=== PATIENT | female | born 1955 | race Caucasian/White ===

== ENCOUNTER 2016-04-06 01:38 | Emergency (ER) | payer MEDICARE, OTHER ==
[~2016-04-06] VITALS: Ht 175.3 cm; Wt 98.2 kg
[2016-04-06 01:38] VITALS: BP 131/71; PULSE 73; RESP 20; TEMP 97.4; O2SAT 95
[2016-04-06] MEDS ORDERED: VENTAER INH (01:50)
[2016-04-06 02:15] LABS: BLOOD, URINE NEG (NEG); GLUCOSE,URINE NEG (NEG); KETONE, URINE NEG (NEG); NITRITE,URINE NEG (NEG); PH, URINE 5.5 (5.0-8.5)
[2016-04-06 02:19] LABS: URINE COLOR YELLOW (YELLW/STRAW)
[2016-04-06 02:20] LABS: COMMENT (UR) CULT NOT INDICATED; CULTURE IF INDICATED CULT NOT INDICATED; RBC, URINE 0-2 /hpf (0-3); SQUAMOUS EPITHELIAL CELL URINE 0-5 /hpf (0-5); WBC, URINE 0-2 /hpf (0-5)
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
--- NOTE | 2016-04-06 03:09 | RADHPO ---
EXAM DATE/TIME: 04/06/2016 02:31 [facility] COMPARISON: No previous studies available for comparison. INDICATIONS : Patient states chronic back pain, no known trauma to area. MEDICAL HISTORY : None. SURGICAL HISTORY : None. ENCOUNTER: Initial ACUITY: 1 week PAIN SCORE: 8/10 LOCATION: Bilateral Thoracic FINDINGS: 3 views of the thoracic spine demonstrate no fracture or compression deformity. There is mild rightwa rd convex curvature. There is mild anterior wedging of the lower thoracic vertebral bodies but no fra cture or compression deformity is appreciated. There are degenerative changes at multiple levels. No anterolisthesis or retrolisthesis is visualized. CONCLUSION: Degenerative changes of the thoracic spine with mild kyphoscoliosis. No acute abnormality is seen. Elmo Graf MD on April 06, 2016 at 3:07 Board Certified Radiologist. This report was verified electronically.
--- NOTE | 2016-04-06 03:10 | RADHPO ---
EXAM DATE/TIME: 04/06/2016 02:32 [facility] COMPARISON: No previous studies available for comparison. INDICATIONS : Patient states chronic back pain, no known trauma to area. MEDICAL HISTORY : None. SURGICAL HISTORY : None. ENCOUNTER: Initial ACUITY: 4 - 6 days PAIN SCORE: 9/10 LOCATION: Bilateral Lumbar FINDINGS: 3 views of the lumbar spine demonstrate 5 nonrib-bearing lumbar vertebral bodies. No fracture or comp ression deformity is present. There is minimal anterolisthesis of L4 in relationship to the adjacent vertebral bodies and with facet hypertrophy at L4-L5. Mild decreased disc height is present at L2-L3 and L1-L2. There are endplate osteophytes. Visualized paraspinous structures demonstrate no acute finding. CONCLUSION: Gender change of the lumbar spine, as above. No acute abnormality is seen. Elmo Graf MD on April 06, 2016 at 3:08 Board Certified Radiologist. This report was verified electronically.
[2016-04-06] MEDS ORDERED: KETOROLAC TROMETHAMINE 60 MG/2 ML (IM) VIAL IM ONE (03:15)
== END 2016-04-06 03:48 | disposition home or self-care (01) ==
LOC: PHED 01:38
DX: M54.5 Low back pain (principal); G89.29 Other chronic pain; J44.9 Chronic obstructive pulmonary disease, unspecified; J45.909 Unspecified asthma, uncomplicated; F17.210 Nicotine dependence, cigarettes, uncomplicated
CPT/HCPCS: 72072; 72100; 81001; 99284

== ENCOUNTER 2016-04-14 22:08 | Emergency (ER) | payer MEDICARE, OTHER ==
[~2016-04-14 22:08] MED LIST: VENTAER INH
[2016-04-14 22:10] VITALS: BP 143/92; PULSE 100; RESP 18; TEMP 97.8; O2SAT 96
[2016-04-15] MEDS ORDERED: SODIUM CHLORIDE 0.9% FLUSH 5 ML FLUSH IVF PRN (03:30)
--- NOTE | 2016-04-15 04:41 | RADRPT ---
EXAM DATE/TIME: 04/15/2016 04:03 [facility] COMPARISON: No previous studies available for comparison. INDICATIONS : Bilateral leg pain and swelling. MEDICAL HISTORY : Emphysema. Gallstones. Diverticulitis. Migraine. SURGICAL HISTORY : Tonsillectomy. ENCOUNTER: Initial ACUITY: 1 day PAIN SCORE: 0/10 LOCATION: Bilateral legs. TECHNIQUE: Venous ultrasound of the left and right leg was performed from the inguinal ligament to the proximal calf. Real-time, color Doppler and spectral tracing, compression and augmentation techniques were us ed. FINDINGS: RIGHT LEG: There is normal compressibility of the deep venous system from the inguinal region to the proximal ca lf. No echogenic clot is seen in the lumen of the common femoral, femoral, popliteal, and posterior tibial veins. There is a normal response of the venous system to proximal and distal augmentation an d respiration. LEFT LEG: There is normal compressibility of the deep venous system from the inguinal region to the proximal ca lf. No echogenic clot is seen in the lumen of the common femoral, femoral, popliteal, and posterior tibial veins. There is a normal response of the venous system to proximal and distal augmentation an d respiration. CONCLUSION: No DVT of either lower extremity. Elmo Baldwin MD on April 15, 2016 at 4:39 Board Certified Radiologist. This report was verified electronically.
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
== END 2016-04-15 06:14 | disposition home or self-care (01) ==
LOC: NEPC 22:08
DX: R60.0 Localized edema (principal); J43.9 Emphysema, unspecified; M79.7 Fibromyalgia; F17.210 Nicotine dependence, cigarettes, uncomplicated; F10.20 Alcohol dependence, uncomplicated
CPT/HCPCS: 93970

== ENCOUNTER 2016-04-27 04:27 | Emergency (ER) | payer MEDICARE, OTHER ==
[~2016-04-27] VITALS: Ht 175.3 cm; Wt 85.0 kg
[2016-04-27 04:31] VITALS: BP 193/77; PULSE 94; RESP 18; TEMP 97.9; O2SAT 100
--- NOTE | 2016-04-27 04:54 | PD ---
HPI Chief Complaint: Injury Time Seen by Provider: 04:46 Travel History International Travel<30 days: No Contact w/Intl Traveler<30days: No Traveled to known affect area: No History of Present Illness HPI The patient is a 60-year-old female who presents to the emergency department via EMS for multiple complaints. The patient states that she lives with a friend, however, has a curfew and did not make it back to her living quarters prior to the curfew. The patient states she was delayed secondary to transportation on the bus. The patient complains of bilateral lower extremity pain, was evaluated in the emergency department earlier this month and had ultrasounds performed which were negative for DVT. The patient continues to complain of lower extremity edema that is worse at the end of the day and slightly improved in the morning. The patient also complains of occasional headaches and "falling forward ", however, denies falling forward and striking her head. Patient also notes a history of intermittent shortness of breath, states she was recently diagnosed with COPD. The patient does have a history of tobacco use and continues to smoke a quarter pack a cigarettes per day. Patient denies any history of pulmonary embolism. The patient recently moved to the area 3 weeks ago from [facility], according to her report, and is currently looking for a permanent residence. The patient does not have a local primary physician. PFSH Past Medical History Asthma: Yes Anxiety: Yes Depression: Yes COPD: Yes (EMPHYSEMA) Diminished Hearing: No Diverticulitis: Yes Fibromyalgia: Yes Gastrointestinal Disorders: Yes (GALLSTONES) Genitourinary: Yes (UTERINE FIBROID TUMORS) Herniated Disk: Yes (LUMBAR) Musculoskeletal: Yes (T11 COMPRESSION FX: DX IN NOV, 2015) Psychiatric: Yes (PTSD, SUICIDAL IDEATION: LAST EPISODE: SEPTEMBER 2015) Migraines: Yes Pneumonia: Yes Ulcer: Yes (PUD) Menopausal: Yes : 1 Para: 1 Ovarian Cysts: Yes Past Surgical History Oral Surgery: Yes Tonsillectomy: Yes Social History Alcohol Use: No Tobacco Use: No Substance Use: No Allergies-Medications (Allergen,Severity, Reaction): Coded Allergies: Benadryl (Verified Allergy, Severe, Tachycardia, 04/27/16) "MAKES ME FEEL LIKE I TOOK AN AMPHETAMINE" Clindamycin (Verified Allergy, Intermediate, Rash, 04/27/16) Uncoded Allergies: STEROIDS (Allergy, Severe, Dizziness, 04/06/16) "STEROIDS MAKE MY BLOOD PRESSURE ELEVATED AND MAKES ME DIZZY" Reported Meds & Prescriptions Reported Meds & Active Scripts Active Reported Ventolin Hfa 18 GM Inh (Albuterol Sulfate) 90 Mcg/Act Aer 2 Puff INH Q4H PRN Review of Systems Except as stated in HPI: all other systems reviewed are Neg General / Constitutional: No: Fever, Chills Cardiovascular: No: Chest Pain or Discomfort Respiratory: Positive: Cough, Shortness of Breath Gastrointestinal: No: Nausea, Vomiting, Abdominal Pain Musculoskeletal: Positive: Edema, Pain Neurologic: No: Dizziness Physical Exam Narrative GENERAL: Awake, alert, nontoxic-appearing 60-year-old female who appears her stated age and is in no acute respiratory distress. SKIN: Warm and dry. HEAD: Atraumatic. Normocephalic. EYES: Pupils equal and round. No scleral icterus. No injection or drainage. ENT: No nasal bleeding or discharge. Mucous membranes pink and moist. NECK: Trachea midline. No JVD. CARDIOVASCULAR: Regular rate and rhythm. No murmur appreciated. RESPIRATORY: No accessory muscle use. Clear to auscultation. Breath sounds equal bilaterally. GASTROINTESTINAL: Abdomen soft, non-tender, nondistended. No rebound tenderness. MUSCULOSKELETAL: No obvious deformities. No clubbing. No cyanosis. Bilateral lower extremity pitting edema with hair growth. Mild erythema noted and sock leg distribution. NEUROLOGICAL: Awake and alert. No obvious cranial nerve deficits. Motor grossly within normal limits. Normal speech. PSYCHIATRIC: Appropriate mood and affect; insight and judgment normal. Data Data Last Documented VS Vital Signs Date Time Temp Pulse Resp B/P Pulse Ox O2 Delivery O2 Flow Rate FiO2 04/27/16 04:33 100 Room Air 04/27/16 04:31 97.9 94 18 193/77 Orders Complete Blood Count With Diff (04/27/16 04:47) Comprehensive Metabolic Panel (04/27/16 04:47) Chest, Single Ap (04/27/16 ) Electrocardiogram (04/27/16 ) Troponin I (04/27/16 04:47) Creatine Kinase (Cpk) (04/27/16 04:47) Labs Laboratory Tests Test 04/27/16 04/27/16 05:05 05:35 Sodium Level 142 MEQ/L Potassium Level 4.7 MEQ/L Chloride Level 104 MEQ/L Carbon Dioxide Level 34.4 MEQ/L Anion Gap 4 MEQ/L Blood Urea Nitrogen 5 MG/DL Creatinine 0.45 MG/DL Estimat Glomerular Filtration 142 ML/MIN Rate Random Glucose 105 MG/DL Calcium Level 9.0 MG/DL Total Bilirubin 0.5 MG/DL Aspartate Amino Transf 32 U/L (AST/SGOT) Alanine Aminotransferase 29 U/L (ALT/SGPT) Alkaline Phosphatase 75 U/L Total Creatine Kinase 166 U/L Troponin I LESS THAN 0.02 NG/ML Total Protein 7.2 GM/DL Albumin 3.7 GM/DL White Blood Count 5.9 TH/MM3 Red Blood Count 4.83 MIL/MM3 Hemoglobin 14.4 GM/DL Hematocrit 42.6 % Mean Corpuscular Volume 88.3 FL Mean Corpuscular Hemoglobin 29.9 PG Mean Corpuscular Hemoglobin 33.9 % Concent Red Cell Distribution Width 14.9 % Platelet Count 142 TH/MM3 Mean Platelet Volume 8.8 FL Neutrophils (%) (Auto) 73.7 % Lymphocytes (%) (Auto) 12.7 % Monocytes (%) (Auto) 8.9 % Eosinophils (%) (Auto) 4.0 % Basophils (%) (Auto) 0.7 % Neutrophils # (Auto) 4.4 TH/MM3 Lymphocytes # (Auto) 0.8 TH/MM3 Monocytes # (Auto) 0.5 TH/MM3 Eosinophils # (Auto) 0.2 TH/MM3 Basophils # (Auto) 0.0 TH/MM3 CBC Comment DIFF FINAL Differential Comment MDM Medical Decision Making Medical Screen Exam Complete: Yes Emergency Medical Condition: Yes Medical Record Reviewed: Yes Interpretation(s) Chest x-ray reveals mild interstitial prominence EKG reveals normal sinus rhythm with a rate in 98. Peak T waves noted in lead V3 and V4. Last Impressions Chest X-Ray 04/27/16 0000 Signed Impressions: Service Date/Time: Wednesday, April 27, 2016 05:03 - CONCLUSION: Mild interstitial prominence. Norbert Parkinson MD Laboratory Tests Test 04/27/16 04/27/16 05:05 05:35 Sodium Level 142 MEQ/L Potassium Level 4.7 MEQ/L Chloride Level 104 MEQ/L Carbon Dioxide Level 34.4 MEQ/L Anion Gap 4 MEQ/L Blood Urea Nitrogen 5 MG/DL Creatinine 0.45 MG/DL Estimat Glomerular Filtration 142 ML/MIN Rate Random Glucose 105 MG/DL Calcium Level 9.0 MG/DL Total Bilirubin 0.5 MG/DL Aspartate Amino Transf 32 U/L (AST/SGOT) Alanine Aminotransferase 29 U/L (ALT/SGPT) Alkaline Phosphatase 75 U/L Total Creatine Kinase 166 U/L Troponin I LESS THAN 0.02 NG/ML Total Protein 7.2 GM/DL Albumin 3.7 GM/DL White Blood Count 5.9 TH/MM3 Red Blood Count 4.83 MIL/MM3 Hemoglobin 14.4 GM/DL Hematocrit 42.6 % Mean Corpuscular Volume 88.3 FL Mean Corpuscular Hemoglobin 29.9 PG Mean Corpuscular Hemoglobin 33.9 % Concent Red Cell Distribution Width 14.9 % Platelet Count 142 TH/MM3 Mean Platelet Volume 8.8 FL Neutrophils (%) (Auto) 73.7 % Lymphocytes (%) (Auto) 12.7 % Monocytes (%) (Auto) 8.9 % Eosinophils (%) (Auto) 4.0 % Basophils (%) (Auto) 0.7 % Neutrophils # (Auto) 4.4 TH/MM3 Lymphocytes # (Auto) 0.8 TH/MM3 Monocytes # (Auto) 0.5 TH/MM3 Eosinophils # (Auto) 0.2 TH/MM3 Basophils # (Auto) 0.0 TH/MM3 CBC Comment DIFF FINAL Differential Comment Differential Diagnosis Differential diagnosis includes DVT, peripheral edema, superficial thrombophlebitis, cellulitis, hyponatremia, hypoalbuminemia, poor social situation, congestive heart failure, pleural effusion, COPD, bronchitis, pulmonary embolism. Narrative Course IV was established, labs are drawn and sent, and the patient was placed on cardiac telemetry monitoring and continuous pulse oximetry monitoring. EKG was ordered and interpreted. Chest x-ray was ordered. IV the patient's medical record, she was evaluated in the emergency department earlier this month where she had bilateral lower extremity ultrasound which was negative for DVT. The patient appears to have dependent lower extremity pitting edema, therefore, sodium level and albumin level were sent to lab. Chest x-ray reveals mild interstitial prominence. Patient's oxygen levels within normal limits. CMP is unremarkable. Patient is afebrile with no white count. Patient appears to have chronic peripheral edema. The patient is advised to wear ANU hose, elevate her legs, and follow-up with her primary physician. Diagnosis Primary Impression: Peripheral edema Additional Instructions: Elevate your legs. Wear ANU hose. Follow-up with a primary physician. Monitor sodium intake. Med/Other Pt SpecificInfo: No Change to Meds Disposition: 01 DISCHARGE HOME Condition: Stable Kishore Benavidez MD Apr 27, 2016 04:54
--- NOTE | 2016-04-27 05:16 | RADRPT ---
EXAM DATE/TIME: 04/27/2016 05:03 [facility] COMPARISON: No previous studies available for comparison. INDICATIONS : Shortness of breath. MEDICAL HISTORY : None. SURGICAL HISTORY : None. ENCOUNTER: Initial ACUITY: 1 day PAIN SCORE: 0/10 LOCATION: chest FINDINGS: There is cardiomegaly and hyperinflation. The lung bases are not fully imaged. No definite consolidat ion or effusion. Mild interstitial prominence. Aortic calcification. CONCLUSION: Mild interstitial prominence. Norbert Parkinson MD on April 27, 2016 at 5:14 Board Certified Radiologist. This report was verified electronically.
[2016-04-27 05:40] LABS: AUTOMATED NEUTROPHIL # 4.4 TH/MM3 (1.8-7.7); BASOPHIL % 0.7 % (0.0-2.0); EOSINOPHIL # 0.2 TH/MM3 (0-0.4); HEMATOCRIT 42.6 % (35.0-46.0); HEMO FLAGS DIFF FINAL; LYMPH % 12.7 % (9.0-44.0); LYMPHOCYTE # 0.8 TH/MM3 (1.0-4.8); MEAN CELL VOLUME 88.3 FL (80.0-100.0); MEAN CORPUSCULAR HEMOGLOBIN 29.9 PG (27.0-34.0); MEAN CORPUSCULAR HGB CONC 33.9 % (32.0-36.0); MONO % 8.9 % (0.0-8.0); NEUT % 73.7 % (16.0-70.0); PLATELET COUNT 142 TH/MM3 (150-450); RED BLOOD COUNT 4.83 MIL/MM3 (4.00-5.30); RED CELL DISTRIBUTION WIDTH 14.9 % (11.6-17.2); WHITE BLOOD COUNT 5.9 TH/MM3 (4.0-11.0)
[2016-04-27 05:50] LABS: ALKALINE PHOSPHATASE 75 U/L (45-117); ALT (GPT) 29 U/L (10-53); ANION GAP 4 MEQ/L (5-15); AST (GOT) 32 U/L (15-37); BICARBONATE 34.4 MEQ/L (21.0-32.0); BLOOD UREA NITROGEN 5 MG/DL (7-18); CHLORIDE 104 MEQ/L (98-107); CREATINE KINASE 166 U/L (26-192); GLOMERULAR FILTRATION RATE 142 ML/MIN (>89); POTASSIUM 4.7 MEQ/L (3.5-5.1); SODIUM (NA) 142 MEQ/L (136-145); TOTAL BILIRUBIN ADULT 0.5 MG/DL (0.2-1.0)
--- NOTE | 2016-04-27 16:28 | EKG ---
Date Performed: 04/27/2016 Time Performed: 05:24:52 PTAGE: 60 years EKG: NORMAL Sinus rhythm POSSIBLE LEFT ATRIAL ENLARGEMENT POSSIBLE RIGHT VENTRICULAR CONDUCTION DELAY POOR R-WAVE PROGRESSION , CONCERNED FOR ANTEROSEPTAL MYOCARDIAL INFARCTION, AGE UNDETERMINED BORDERLINE ECG NO PRIOR FOR GAIL CASAS NO PREVIOUS TRACING DOCTOR: Arline Zaidi Interpretating Date/Time 04/27/2016 16:28:05
== END 2016-04-27 07:07 | disposition home or self-care (01) ==
LOC: NEPC 04:27
DX: R60.0 Localized edema (principal); K27.9 Peptic ulcer, site unspecified, unspecified as acute or chronic, without hemorrhage or perforation; J43.9 Emphysema, unspecified; F41.8 Other specified anxiety disorders; M79.7 Fibromyalgia; F43.10 Post-traumatic stress disorder, unspecified; M51.26 Other intervertebral disc displacement, lumbar region
CPT/HCPCS: 71010; 80053; 82550; 84484; 85025; 93005

== ENCOUNTER 2016-05-06 21:50 | Emergency (ER) | payer MEDICARE, OTHER ==
[~2016-05-06] VITALS: Ht 175.3 cm; Wt 95.0 kg
[2016-05-06] MEDS ORDERED: RESP: ALBUTEROL 2.5 MG/IPRATROPIUM 0.5 MG NEB (SCH) ONE ×3 (21:53→22:00)
[2016-05-06 22:00] VITALS: BP 139/70; PULSE 67; RESP 26; TEMP 99.1; O2SAT 100
[2016-05-06] MEDS ORDERED: predniSONE 20 MG TAB PO ONE (22:00)
[2016-05-06] MEDS ORDERED: SODIUM CHLORIDE 0.9% FLUSH 5 ML FLUSH IVF PRN (22:00)
[2016-05-06] MEDS ORDERED: LISI-515 PO (22:08)
--- NOTE | 2016-05-06 22:13 | PD ---
HPI Chief Complaint: Respiratory Symptoms Time Seen by Provider: 21:57 Travel History International Travel<30 days: No Contact w/Intl Traveler<30days: No Traveled to known affect area: No History of Present Illness HPI Patient 60-year-old female presents emergency primary for evaluation of shortness of breath. Patient states she was at [facility] and became short of breath. She has a history of asthma. She call 911 and was given duo nebs in route, no steroids in route is a patient is allergic to. Patient is also noticed some swelling in her legs over the past few weeks and she has been evaluated here for those. Denies any chest pain denies any fevers or cough. States his symptoms are starting to better since she's had treatments. PFSH Past Medical History Asthma: Yes Anxiety: Yes Depression: Yes COPD: Yes (EMPHYSEMA) Diminished Hearing: No Diverticulitis: Yes Fibromyalgia: Yes Gastrointestinal Disorders: Yes (GALLSTONES) Genitourinary: Yes (UTERINE FIBROID TUMORS) Herniated Disk: Yes (LUMBAR) Musculoskeletal: Yes (T11 COMPRESSION FX: DX IN NOV, 2015) Psychiatric: Yes (PTSD, SUICIDAL IDEATION: LAST EPISODE: SEPTEMBER 2015) Respiratory: Yes (ASTHMA) Migraines: Yes Pneumonia: Yes Ulcer: Yes (PUD) Tetanus Vaccination: Unknown Influenza Vaccination: No Menopausal: Yes : 1 Para: 1 Ovarian Cysts: Yes Past Surgical History Oral Surgery: Yes Tonsillectomy: Yes Social History Alcohol Use: No Tobacco Use: No Substance Use: No Allergies-Medications (Allergen,Severity, Reaction): Coded Allergies: Benadryl (Verified Allergy, Severe, Tachycardia, 05/06/16) "MAKES ME FEEL LIKE I TOOK AN AMPHETAMINE" Clindamycin (Verified Allergy, Intermediate, Rash, 05/06/16) Atrovent (Verified Allergy, Unknown, 05/06/16) Uncoded Allergies: STEROIDS (Allergy, Severe, Dizziness, 04/06/16) "STEROIDS MAKE MY BLOOD PRESSURE ELEVATED AND MAKES ME DIZZY" Reported Meds & Prescriptions Reported Meds & Active Scripts Active Keflex (Cephalexin) 500 Mg Cap 500 Mg PO Q6H 7 Days Reported Lisinopril 20 Mg Tab 20 Mg PO DAILY Ventolin Hfa 18 GM Inh (Albuterol Sulfate) 90 Mcg/Act Aer 2 Puff INH Q4H PRN Review of Systems Except as stated in HPI: all other systems reviewed are Neg Physical Exam Narrative GENERAL: Well-developed well-nourished no apparent distress SKIN: Warm and dry. There is some mild cellulitis of bilateral lower extremities and anterior portions only. Not circumferential. HEAD: Atraumatic. Normocephalic. EYES: Pupils equal and round. No scleral icterus. No injection or drainage. ENT: No nasal bleeding or discharge. Mucous membranes pink and moist. NECK: Trachea midline. No JVD. CARDIOVASCULAR: Regular rate and rhythm. No murmur appreciated. RESPIRATORY: No accessory muscle use. Very faint end expiratory wheeze only.. Breath sounds equal bilaterally. Good air entry bilaterally. GASTROINTESTINAL: Abdomen soft, non-tender, nondistended. Hepatic and splenic margins not palpable. MUSCULOSKELETAL: No obvious deformities. No clubbing. No cyanosis. 2+ bilateral pitting edema to the bilateral lower extremities level of the mid tibia. NEUROLOGICAL: Awake and alert. No obvious cranial nerve deficits. Motor grossly within normal limits. Normal speech. PSYCHIATRIC: Appropriate mood and affect; insight and judgment normal. Data Data Last Documented VS Vital Signs Date Time Temp Pulse Resp B/P Pulse Ox O2 Delivery O2 Flow Rate FiO2 05/06/16 23:43 108 20 145/68 91 Nasal Cannula 3 05/06/16 22:00 99.1 Orders Albuterol-Ipratropium Neb (Duoneb Neb) (05/06/16 21:53) Electrocardiogram (05/06/16 21:57) Ckmb (Isoenzyme) Profile (05/06/16 21:57) Complete Blood Count With Diff (05/06/16 21:57) Comprehensive Metabolic Panel (05/06/16 21:57) Magnesium (Mg) (05/06/16 21:57) Prothrombin Time / Inr (Pt) (05/06/16 21:57) Act Partial Throm Time (Ptt) (05/06/16 21:57) Troponin I (05/06/16 21:57) Chest, Single Ap (05/06/16 21:57) Ecg Monitoring (05/06/16 21:57) Bilateral Bp Monitoring (05/06/16 21:57) Iv Access Insert/Monitor (05/06/16 21:57) Oximetry (05/06/16 21:57) Oxygen Administration (05/06/16 21:57) Sodium Chloride 0.9% Flush (Ns Flush) (05/06/16 22:00) Ct Pulmonary Angiogram (05/06/16 21:57) Prednisone (Deltasone) (05/06/16 22:00) Albuterol-Ipratropium Neb (Duoneb Neb) (05/06/16 22:00) Albuterol-Ipratropium Neb (Duoneb Neb) (05/06/16 22:00) Us Leg Venous Doppler Bilat (05/06/16 22:08) Albuterol-Ipratropium Neb (Duoneb Neb) (05/06/16 23:00) CKMB (05/06/16 22:55) CKMB% (05/06/16 22:55) Iohexol 350 Inj (Omnipaque 350 Inj) (05/07/16 00:21) Albuterol Hfa Inh (Proair Hfa Inh) (05/07/16 06:00) Labs Laboratory Tests Test 05/06/16 22:55 Prothrombin Time 10.7 SEC Prothromb Time International 1.0 RATIO Ratio Activated Partial 26.4 SEC Thromboplast Time White Blood Count 8.0 TH/MM3 Red Blood Count 4.15 MIL/MM3 Hemoglobin 12.4 GM/DL Hematocrit 37.3 % Mean Corpuscular Volume 89.7 FL Mean Corpuscular Hemoglobin 29.9 PG Mean Corpuscular Hemoglobin 33.3 % Concent Red Cell Distribution Width 14.6 % Platelet Count 109 TH/MM3 Mean Platelet Volume 9.3 FL Neutrophils (%) (Auto) 74.5 % Lymphocytes (%) (Auto) 12.0 % Monocytes (%) (Auto) 10.7 % Eosinophils (%) (Auto) 2.2 % Basophils (%) (Auto) 0.6 % Neutrophils # (Auto) 5.9 TH/MM3 Lymphocytes # (Auto) 1.0 TH/MM3 Monocytes # (Auto) 0.9 TH/MM3 Eosinophils # (Auto) 0.2 TH/MM3 Basophils # (Auto) 0.0 TH/MM3 CBC Comment DIFF FINAL Differential Comment Sodium Level 138 MEQ/L Potassium Level 5.3 MEQ/L Chloride Level 98 MEQ/L Carbon Dioxide Level 35.4 MEQ/L Anion Gap 5 MEQ/L Blood Urea Nitrogen 9 MG/DL Creatinine 0.68 MG/DL Estimat Glomerular Filtration 88 ML/MIN Rate Random Glucose 134 MG/DL Calcium Level 8.2 MG/DL Magnesium Level 2.0 MG/DL Total Bilirubin 0.4 MG/DL Aspartate Amino Transf 76 U/L (AST/SGOT) Alanine Aminotransferase 48 U/L (ALT/SGPT) Alkaline Phosphatase 79 U/L Total Creatine Kinase 194 U/L Creatine Kinase MB 2.5 NG/ML Creatine Kinase MB % 1.3 % Troponin I LESS THAN 0.02 NG/ML Total Protein 6.7 GM/DL Albumin 2.9 GM/DL MDM Medical Decision Making Medical Screen Exam Complete: Yes Emergency Medical Condition: Yes Interpretation(s) EKG shows sinus tachycardia rate of 108, normal axis and normal R-wave progression. Prominent T waves in V4 and V3. Undetermined significance. This is an abnormal EKG. Differential Diagnosis Asthma exacerbation, PE, DVT, cellulitis. Narrative Course Patient was roomed in the emergency department, she was given 3 duo nebs while she was here, CT PE negative, no evidence of infection. EKG normal, troponin negative. Potassium 5.3 but it hemolyzed specimen. Patient reassessed sleeping soundly and in no apparent distress. DVT ultrasound was obtained bilateral extremities and is negative. She is saturating well on his walk around emerged Department. We'll place on Keflex for his cellulitis and she was provided a inhaler of albuterol in the emergency department. She was able to maintain saturations greater than 95% during her walking test. He stable for discharge at this time. Diagnosis Primary Impression: Asthma exacerbation Additional Impression: Cellulitis Additional Instructions: You have a nodule on her thyroid you need to follow up with her primary care physician. Don't have a primary care physician please follow-up with the health department. If he have increasing shortness of breath please return to the emergency department. Med/Other Pt SpecificInfo: Prescription(s) given Scripts Cephalexin (Keflex)500 Mg Bxd130 Mg PO Q6H 7 Days Ref 0 Prov:Cj Jarrell MD 05/07/16 Disposition: 01 DISCHARGE HOME Condition: Stable Cj Jarrell MD May 06, 2016 22:13
--- NOTE | 2016-05-06 22:45 | RADRPT ---
EXAM DATE/TIME: 05/06/2016 22:18 [facility] COMPARISON: CHEST SINGLE AP, April 27, 2016, 5:03. INDICATIONS : Shortness of breath. MEDICAL HISTORY : None. SURGICAL HISTORY : None. ENCOUNTER: Initial ACUITY: 1 day PAIN SCORE: 0/10 LOCATION: Bilateral chest FINDINGS: Cardiomegaly and aortic calcification. Clear lungs. Osseous structures are intact. CONCLUSION: No acute disease. Norbert Parkinson MD on May 06, 2016 at 22:43 Board Certified Radiologist. This report was verified electronically.
[2016-05-06] MEDS ORDERED: RESP: ALBUTEROL 2.5 MG/IPRATROPIUM 0.5 MG NEB (SCH) NEB ONE (23:00)
[2016-05-06 23:02] VITALS: O2SAT 97
[2016-05-06 23:14] LABS: AUTOMATED NEUTROPHIL # 5.9 TH/MM3 (1.8-7.7); BASOPHIL % 0.6 % (0.0-2.0); EOSINOPHIL # 0.2 TH/MM3 (0-0.4); EOSINOPHIL % 2.2 % (0.0-4.0); HEMATOCRIT 37.3 % (35.0-46.0); HEMO FLAGS DIFF FINAL; MEAN CELL VOLUME 89.7 FL (80.0-100.0); MEAN CORPUSCULAR HEMOGLOBIN 29.9 PG (27.0-34.0); MEAN CORPUSCULAR HGB CONC 33.3 % (32.0-36.0); MONO % 10.7 % (0.0-8.0); NEUT % 74.5 % (16.0-70.0); PLATELET COUNT 109 TH/MM3 (150-450); RED BLOOD COUNT 4.15 MIL/MM3 (4.00-5.30); RED CELL DISTRIBUTION WIDTH 14.6 % (11.6-17.2)
--- NOTE | 2016-05-06 23:27 | RADRPT ---
EXAM DATE/TIME: 05/06/2016 22:50 [facility] COMPARISON: US LEG BILATERAL VENOUS DOPPLER, April 15, 2016, 4:03. INDICATIONS : Bilateral leg swelling. MEDICAL HISTORY : Diverticulitis. Chronic obstructive pulmonary disease. . Migraine. Emphysema. Asthma. Pneumo yandel. Gallstones. Ulcer. Ovarian cysts. Uterine fibroids. T11 compression fracture. Post traumatic str ess disorder. Depression. Anxiety. SURGICAL HISTORY : Tonsillectomy. ENCOUNTER: Subsequent ACUITY: 1 month PAIN SCORE: 2/10 LOCATION: Bilateral legs. TECHNIQUE: Venous ultrasound of the left and right leg was performed from the inguinal ligament to the proximal calf. Real-time, color Doppler and spectral tracing, compression and augmentation techniques were us ed. FINDINGS: RIGHT LEG: There is normal compressibility of the deep venous system from the inguinal region to the proximal ca lf. No echogenic clot is seen in the lumen of the common femoral, femoral, popliteal, and posterior tibial veins. There is a normal response of the venous system to proximal and distal augmentation an d respiration. LEFT LEG: There is normal compressibility of the deep venous system from the inguinal region to the proximal ca lf. No echogenic clot is seen in the lumen of the common femoral, femoral, popliteal, and posterior tibial veins. There is a normal response of the venous system to proximal and distal augmentation an d respiration. CONCLUSION: Negative exam. No sonographic or Doppler findings of deep venous thrombosis in either lower extr emity. Marcio Ramírez MD on May 06, 2016 at 23:23 Board Certified Radiologist. This report was verified electronically.
[2016-05-06 23:41] LABS: APTT (PATIENT) 26.4 SEC (24.3-30.1); PROTHROMBIN TIME - PATIENT 10.7 SEC (9.8-11.6)
[2016-05-06 23:43] VITALS: BP 145/68; PULSE 108; RESP 20; O2SAT 91; O2SAT 93
[2016-05-07 00:05] LABS: ALKALINE PHOSPHATASE 79 U/L (45-117); ALT (GPT) 48 U/L (10-53); ANION GAP 5 MEQ/L (5-15); AST (GOT) 76 U/L (15-37); BICARBONATE 35.4 MEQ/L (21.0-32.0); BLOOD UREA NITROGEN 9 MG/DL (7-18); CHLORIDE 98 MEQ/L (98-107); CREATINE KINASE 194 U/L (26-192); GLOMERULAR FILTRATION RATE 88 ML/MIN (>89); POTASSIUM 5.3 MEQ/L (3.5-5.1); SODIUM (NA) 138 MEQ/L (136-145); TOTAL BILIRUBIN ADULT 0.4 MG/DL (0.2-1.0)
[2016-05-07] MEDS ORDERED: IOHEXOL 350 MG/ML 10 ML VIAL (for RAD DIAG) IV ONE (00:21)
[2016-05-07 00:23] LABS: CKMB 2.5 NG/ML (0.5-3.6)
--- NOTE | 2016-05-07 00:46 | RADRPT ---
EXAM DATE/TIME: 05/07/2016 00:18 [facility] COMPARISON: No previous studies available for comparison. INDICATIONS : Short of breath. IV CONTRAST: 74 cc Omnipaque 350 (iohexol) IV RADIATION DOSE: 23.45 CTDIvol (mGy) MEDICAL HISTORY : Chronic obstructive pulmonary disease. Emphysema. Diverticulitis.Fibromyalgia. SURGICAL HISTORY : Tonsillectomy. ENCOUNTER: Initial ACUITY: 2 days PAIN SCALE: Non-responsive LOCATION: chest TECHNIQUE: Volumetric scanning of the chest was performed using a pulmonary embolism protocol MIP images were re constructed. Using automated exposure control and adjustment of the mA and/or kV according to patien t size, radiation dose was kept as low as reasonably achievable to obtain optimal diagnostic quality images. FINDINGS: PULMONARY ARTERIES: No filling defects are seen in the pulmonary arteries through the segmental level. LUNGS: Mild biapical emphysematous changes. No confluent infiltrates. PLEURAE: Minimal subpleural stranding laterally in the right lower lobe is almost certainly postinflammatory. No effusion. MEDIASTINUM: There is good visualization of the great vessels of the middle mediastinum. No evidence of mediastin al or hilar adenopathy/mass. MUSCULOSKELETAL: Within normal limits for patient age. MISCELLANEOUS: The visualized upper abdominal organs demonstrate no acute abnormality. Asymmetric enlargement of the right lobe of the thyroid measured 4.1 x 3.6 cm. Probable 2.6 cm sebaceous-type cyst in the left mid line subcutaneous tissues of the left chest. Spleen is borderline prominent. CONCLUSION: 1. Minimal biapical emphysematous changes with probable postinflammatory subpleural stranding lateral ly in the right lower lobe. 2. No confluent infiltrate or pulmonary embolus to explain current clinical symptoms. 3. 4.1 x 3.6 cm asymmetric enlargement/mass lesion in the left lobe of the thyroid. Ultrasound could be performed for further characterization on an outpatient basis if clinically warranted. 4. Probable 2.6 cm sebaceous type cyst left paramidline in the anterior chest. 5. Borderline splenomegaly. Marcio Ramírez MD on May 07, 2016 at 0:37 Board Certified Radiologist. This report was verified electronically.
[2016-05-07] MEDS ORDERED: CEPH-460 PO (00:50)
[2016-05-07] MEDS ORDERED: ALBUTEROL SULFATE 90 MCG/ACT HFA 8 GM INHALER INH SCH (06:00)
--- NOTE | 2016-05-07 17:05 | EKG ---
Date Performed: 05/06/2016 Time Performed: 22:10:24 PTAGE: 60 years EKG: SINUS TACHYCARDIA POSSIBLE RIGHT VENTRICULAR CONDUCTION DELAY SEPTAL MYOCARDIAL INFARCTION ABNORMAL ECG PREVIOUS TRACING 04/27/2016 05.24.52 DOCTOR: Lele Peace Interpretating Date/Time 05/07/2016 17:04:32
== END 2016-05-07 02:36 | disposition home or self-care (01) ==
LOC: NEPC 21:50
DX: J45.901 Unspecified asthma with (acute) exacerbation (principal); J44.9 Chronic obstructive pulmonary disease, unspecified; L03.116 Cellulitis of left lower limb; L03.115 Cellulitis of right lower limb; R00.0 Tachycardia, unspecified
CPT/HCPCS: 71010; 71275; 80053; 82550; 82552; 83735; 84484; 85025; 85610; 85730; 93005; 93970; 94640; 94664; 99285; Q9967

== ENCOUNTER 2016-05-08 01:33 | Inpatient (IN) | payer MEDICARE, OTHER ==
[~2016-05-08] VITALS: Ht 170.2 cm; Wt 90.5 kg
[2016-05-08] VITALS (19 sets, daily range): BP systolic 99–188; BP diastolic 53–88; PULSE 85–115; RESP 16–24; TEMP 98.1–99.5; O2SAT 44–100
[~2016-05-08 01:33] MED LIST changes: +CEPH-460 PO; +LISI-515 PO
[2016-05-08] MEDS ORDERED: SODIUM CHLOR 0.9% 250 ML INJ 250 ML IV ONE (02:00)
[2016-05-08] MEDS ORDERED: SODIUM CHLORIDE 0.9% FLUSH 5 ML FLUSH IVF PRN (02:00)
[2016-05-08 02:11] LABS: AUTOMATED NEUTROPHIL # 5.5 TH/MM3 (1.8-7.7); BASOPHIL # 0.1 TH/MM3 (0-0.2); BASOPHIL % 1.1 % (0.0-2.0); EOSINOPHIL # 0.2 TH/MM3 (0-0.4); EOSINOPHIL % 2.5 % (0.0-4.0); HEMATOCRIT 38.5 % (35.0-46.0); HEMO FLAGS DIFF FINAL; LYMPH % 8.1 % (9.0-44.0); LYMPHOCYTE # 0.6 TH/MM3 (1.0-4.8); MEAN CORPUSCULAR HEMOGLOBIN 30.1 PG (27.0-34.0); MEAN CORPUSCULAR HGB CONC 33.4 % (32.0-36.0); MONO % 14.4 % (0.0-8.0); NEUT % 73.9 % (16.0-70.0); PLATELET COUNT 118 TH/MM3 (150-450); RED BLOOD COUNT 4.28 MIL/MM3 (4.00-5.30); RED CELL DISTRIBUTION WIDTH 14.8 % (11.6-17.2); WHITE BLOOD COUNT 7.4 TH/MM3 (4.0-11.0)
[2016-05-08 02:29] LABS: ALT (GPT) 60 U/L (10-53); ANION GAP 5 MEQ/L (5-15); AST (GOT) 48 U/L (15-37); BLOOD UREA NITROGEN 8 MG/DL (7-18); CHLORIDE 100 MEQ/L (98-107); GLOMERULAR FILTRATION RATE 135 ML/MIN (>89); MAGNESIUM 1.9 MG/DL (1.5-2.5); POTASSIUM 4.1 MEQ/L (3.5-5.1); SODIUM (NA) 140 MEQ/L (136-145)
--- NOTE | 2016-05-08 02:35 | PD ---
HPI Chief Complaint: Respiratory Distress Time Seen by Provider: 01:43 Travel History International Travel<30 days: No Contact w/Intl Traveler<30days: No Traveled to known affect area: No History of Present Illness HPI The patient is a 60 year old female who presents to the [facility] emergency department with a history of shortness of breath that began prior to arrival according to ambulance services. The patient was provided an inhaler yesterday in the emergency department, however reportedly she has not used it. The patient was evaluated for a COPD exacerbation yesterday in the emergency department. The patient was given en route to this facility 2 albuterol nebulizer treatments. The patient was completing her second on arrival. The patient was then placed on room air to assess her room air saturation. Her O2 saturation decreased to 83% on room air. On my arrival to the room, the patient is noted to be drowsy. The patient has difficulty staying awake to answer questions. She denies taking any medications or drinking any alcohol this evening. As the patient has difficulty providing history the patient's history is obtained through reviewing her electronic medical record. FORMERLY [facility] Past Medical History Narrative Medical The patient's past medical history is significant for COPD, anxiety and depression, migraine headaches, history of ovarian cysts, peptic ulcer disease, fibromyalgia, history of diverticulitis, history of T11 compression fracture, history of uterine fibroids. Asthma: Yes Anxiety: Yes Depression: Yes COPD: Yes (EMPHYSEMA) Diminished Hearing: No Diverticulitis: Yes Fibromyalgia: Yes Gastrointestinal Disorders: Yes (GALLSTONES) Genitourinary: Yes (UTERINE FIBROID TUMORS) Herniated Disk: Yes (LUMBAR) Musculoskeletal: Yes (T11 COMPRESSION FX: DX IN NOV, 2015) Psychiatric: Yes (PTSD, SUICIDAL IDEATION: LAST EPISODE: SEPTEMBER 2015) Respiratory: Yes (ASTHMA) Migraines: Yes Pneumonia: Yes Ulcer: Yes (PUD) Tetanus Vaccination: Unknown Influenza Vaccination: No Menopausal: Yes : 1 Para: 1 Ovarian Cysts: Yes Past Surgical History Narrative Surgical The patient's past surgical history is significant for a tonsillectomy, history of posttraumatic stress disorder. Oral Surgery: Yes Tonsillectomy: Yes Social History Alcohol Use: No Tobacco Use: No Substance Use: No Allergies-Medications (Allergen,Severity, Reaction): Coded Allergies: Benadryl (Verified Allergy, Severe, Tachycardia, 05/08/16) "MAKES ME FEEL LIKE I TOOK AN AMPHETAMINE" Clindamycin (Verified Allergy, Intermediate, Rash, 05/08/16) Atrovent (Verified Allergy, Unknown, 05/08/16) Uncoded Allergies: STEROIDS (Allergy, Severe, Dizziness, 04/06/16) "STEROIDS MAKE MY BLOOD PRESSURE ELEVATED AND MAKES ME DIZZY" Reported Meds & Prescriptions Reported Meds & Active Scripts Active Keflex (Cephalexin) 500 Mg Cap 500 Mg PO Q6H 7 Days Reported Lisinopril 20 Mg Tab 20 Mg PO DAILY Ventolin Hfa 18 GM Inh (Albuterol Sulfate) 90 Mcg/Act Aer 2 Puff INH Q4H PRN Review of Systems Except as stated in HPI: all other systems reviewed are Neg General / Constitutional: No: Fever Eyes: No: Visual changes HENT: No: Headaches Cardiovascular: Positive: Dyspnea on exertion, No: Chest Pain or Discomfort Respiratory: Positive: Cough, Shortness of Breath, Wheezing Gastrointestinal: No: Abdominal Pain Genitourinary: No: Dysuria Musculoskeletal: No: Pain Skin: No Rash Neurologic: No: Weakness Psychiatric: No: Depression Endocrine: No: Polydipsia Hematologic/Lymphatic: No: Easy Bruising Physical Exam Narrative General: The patient is a well-developed well-nourished female in no acute distress on arrival, receiving an albuterol nebulizer treatment with O2 saturations between 97 and 99%. She is disheveled appearing. Head and Neck exam: Head is normocephalic atraumatic. Eyes: EOMI, pupils are equal round and reactive to light. Nose: Midline septum with pink mucous membranes Mouth: Dentition unremarkable. Moist mucus membranes. Posterior oropharynx is not erythematous. No tonsillar hypertrophy. Uvula midline. Airway patent. Neck: No palpable lymphadenopathy. No nuchal rigidity. No thyromegaly. Cardiovascular: Regular rate and rhythm without murmurs, gallops, or rubs. No pulse deficit to the extremities and simultaneous auscultation and palpation of her radial artery. Lungs: Clear to auscultation bilaterally. No wheezes, rhonchi, or rales. Abdomen: Soft, without tenderness to palpation in all 4 quadrants of the abdomen. No guarding, rebound, or rigidity. Normal bowel sounds are audible. Extremities: No clubbing or cyanosis. The patient has 1+ pitting edema bilateral lower extremities with a history according to the record of chronic peripheral edema. 2+ pulses in all 4 extremities. Back: No spinous process tenderness to palpation. No costovertebral angle tenderness to palpation. Neurologic Exam: The patient has difficulty staying awake to follow commands although she is able to follow commands when she is awake. Cranial nerves 2-12 were intact on exam. Strength is 5/5 in all 4 extremities. No sensory deficits noted. Skin Exam: No rash noted. Intact skin that is warm and dry. Data Data Last Documented VS Vital Signs Date Time Temp Pulse Resp B/P Pulse Ox O2 Delivery O2 Flow Rate FiO2 05/08/16 03:51 98 18 140/67 95 Nasal Cannula 3 05/08/16 01:37 98.1 Orders Complete Blood Count With Diff (05/08/16 01:54) Comprehensive Metabolic Panel (05/08/16 01:54) B-Type Natriuretic Peptide (05/08/16 01:54) Ckmb (Isoenzyme) Profile (05/08/16 01:54) Troponin I (05/08/16 01:54) Arterial Blood Gas (Abg) (05/08/16 01:54) Urinalysis - C+S If Indicated (05/08/16 01:54) Iv Access Insert/Monitor (05/08/16 01:54) Electrocardiogram (05/08/16 01:54) Ecg Monitoring (05/08/16 01:54) Oximetry (05/08/16 01:54) Oxygen Administration (05/08/16 01:54) Chest, Single Ap (05/08/16 01:54) Sodium Chloride 0.9% Flush (Ns Flush) (05/08/16 02:00) Magnesium (Mg) (05/08/16 01:54) Thyroid Stimulating Hormone (05/08/16 01:54) Drug Screen, Random Urine (05/08/16 01:54) Alcohol (Ethanol) (05/08/16 01:54) Sodium Chlor 0.9% 250 Ml Inj (Ns 250 Ml (05/08/16 02:00) Albuterol Neb (Albuterol Neb) (05/08/16 02:45) Admit Order (Ed Use Only) (05/08/16 04:01) Labs Laboratory Tests Test 05/08/16 05/08/16 02:00 02:25 White Blood Count 7.4 TH/MM3 Red Blood Count 4.28 MIL/MM3 Hemoglobin 12.9 GM/DL Hematocrit 38.5 % Mean Corpuscular Volume 90.0 FL Mean Corpuscular Hemoglobin 30.1 PG Mean Corpuscular Hemoglobin 33.4 % Concent Red Cell Distribution Width 14.8 % Platelet Count 118 TH/MM3 Mean Platelet Volume 9.6 FL Neutrophils (%) (Auto) 73.9 % Lymphocytes (%) (Auto) 8.1 % Monocytes (%) (Auto) 14.4 % Eosinophils (%) (Auto) 2.5 % Basophils (%) (Auto) 1.1 % Neutrophils # (Auto) 5.5 TH/MM3 Lymphocytes # (Auto) 0.6 TH/MM3 Monocytes # (Auto) 1.1 TH/MM3 Eosinophils # (Auto) 0.2 TH/MM3 Basophils # (Auto) 0.1 TH/MM3 CBC Comment DIFF FINAL Differential Comment Sodium Level 140 MEQ/L Potassium Level 4.1 MEQ/L Chloride Level 100 MEQ/L Carbon Dioxide Level 35.0 MEQ/L Anion Gap 5 MEQ/L Blood Urea Nitrogen 8 MG/DL Creatinine 0.47 MG/DL Estimat Glomerular Filtration 135 ML/MIN Rate Random Glucose 136 MG/DL Calcium Level 8.4 MG/DL Magnesium Level 1.9 MG/DL Total Bilirubin 0.4 MG/DL Aspartate Amino Transf 48 U/L (AST/SGOT) Alanine Aminotransferase 60 U/L (ALT/SGPT) Alkaline Phosphatase 89 U/L Total Creatine Kinase 70 U/L Troponin I LESS THAN 0.02 NG/ML B-Type Natriuretic Peptide 32 PG/ML Total Protein 6.4 GM/DL Albumin 3.0 GM/DL Thyroid Stimulating Hormone 0.641 uIU/ML 3rd Gen Ethyl Alcohol Level LESS THAN 3 MG/DL Blood Gas Puncture Site RT RADIAL Blood Gas Patient Temperature 98.6 Blood Gas HCO3 29 mmol/L Blood Gas Base Excess 5.3 mmol/L Blood Gas Oxygen Saturation 93 % Arterial Blood pH 7.44 Arterial Blood Partial 45 mmHg Pressure CO2 Arterial Blood Partial 144 mmHG Pressure O2 Arterial Blood Oxygen Content 15.9 Vol % Arterial Blood 4.6 % Carboxyhemoglobin Arterial Blood Methemoglobin 1.8 % Blood Gas Hemoglobin 11.9 G/DL Oxygen Delivery Device NASAL CANNULA Blood Gas Liter Flow 2 L/M MDM Medical Decision Making Medical Screen Exam Complete: Yes Emergency Medical Condition: Yes Medical Record Reviewed: Yes Interpretation(s) Last Impressions Chest X-Ray 05/08/16 0154 Signed Impressions: Service Date/Time: Sunday, May 08, 2016 02:16 - CONCLUSION: No acute cardiopulmonary process. Marcio Ramírez MD Differential Diagnosis COPD exacerbation, versus pneumonia, versus shortness of breath related to acute alcohol intoxication, versus other substance intoxication Narrative Course During the course of the patients emergency department visit, the patients history, examination, and differential diagnosis were reviewed with the patient. The patient had IV access obtained and blood work sent for analysis. The patient was placed on a surveillance system monitor with oximetry and blood pressure monitoring. An EKG was ordered. The patient's EKG shows a sinus rhythm of 97, no acute ST segment changes, T waves are inverted in V1, V2. No acute ST segment elevation is noted a PVC is noted. The patient was taken off of oxygen and her room air saturation did drop down to 83%. The patient was placed back on oxygen. The patient reports that she has an allergy to steroids and Atrovent. The patient was given albuterol nebulizer treatments 2. The patients laboratory studies were reviewed and remarkable for a CBC that shows a white count of 7.4, hemoglobin 12.9, platelets 118 with 73.9 neutrophils , lymphocytes 8.1, monocytes 14.4. CMP is remarkable for a CO2 of 35, creatinine 0.47, glucose 136, calcium 8.4, AST 48, ALT extremely, initial set of cardiac enzymes are negative, BNP is 32, albumin 3.0, TSH 0.641, alcohol level was 3. ABG on 5 L reveals pH is 7.44, PCO2 of 45, PO2 144, carboxyhemoglobin 4.6, bicarbonate 29. Radiology studies were reviewed and remarkable for a chest x-ray that shows no acute abnormality. The patients results were discussed with the patient, including the plan of care. I explained that further testing and/ or monitoring is indicated based on the patients history, examination, and/ or laboratory findings. Therefore, I recommended admission for additional evaluation. The patient expressed understanding and was agreeable with this plan. The patient was admitted to the hospital in guarded condition and [facility] Physician Communication Physician Communication The patient's case was discussed with Dr. Lopez who did agree to admit the patient for further evaluation and treatment at this time. Diagnosis Primary Impression: COPD exacerbation Additional Impression: Hypoxemia Admitting Information Admitting Physician Requests: Admit Lauren Mccullough MD May 08, 2016 02:35
[2016-05-08 02:39] LABS: ALKALINE PHOSPHATASE 89 U/L (45-117); TOTAL BILIRUBIN ADULT 0.4 MG/DL (0.2-1.0)
[2016-05-08 02:40] LABS: CREATINE KINASE 70 U/L (26-192)
[2016-05-08 02:40] LABS: BLOOD GAS BASE EXCESS 5.3 mmol/L (-2-2); BLOOD GAS CARBOXYHEMOGLOBIN 4.6 % (0-4); BLOOD GAS HCO3 29 mmol/L (22-26); BLOOD GAS METHEMOGLOBIN 1.8 % (0-2); BLOOD GAS O2 HGB SATURATION 93 % (90-100); BLOOD GAS OXYGEN CONTENT 15.9 Vol % (12.0-20.0); BLOOD GAS PCO2 45 mmHg (38-42); BLOOD GAS PO2 144 mmHG (61-120); BLOOD GAS TOTAL HGB 11.9 G/DL (12.0-16.0); CRITICAL VALUE NO; DRAW SITE RT RADIAL; LITER FLOW 2 L/M; OXYGEN DEVICE NASAL CANNULA; TEMP CORR TO 98.6
[2016-05-08 02:41] LABS: NUMBER OF ARTERIAL PUNCTURES 2; STAT YES; ULNAR PULSE PRESENT
[2016-05-08] MEDS: RESP: ALBUTEROL 2.5 MG/3 ML NEB (SCH) INH (02:47)
--- NOTE | 2016-05-08 02:50 | RADRPT ---
EXAM DATE/TIME: 05/08/2016 02:16 [place] COMPARISON: CHEST SINGLE AP, May 06, 2016, 22:18. INDICATIONS : Shortness of breath. MEDICAL HISTORY : Chronic obstructive pulmonary disease. Emphysema. SURGICAL HISTORY : None. ENCOUNTER: Initial ACUITY: 1 day PAIN SCORE: 0/10 LOCATION: Bilateral chest FINDINGS: A single view of the chest demonstrates the lungs to be symmetrically aerated without evidence of mas s, infiltrate or effusion. The cardiomediastinal contours are unremarkable. Osseous structures are intact with a dextroscoliosis of the upper dorsal spine. CONCLUSION: No acute cardiopulmonary process. Marcio Ramírez MD on May 08, 2016 at 2:45 Board Certified Radiologist. This report was verified electronically.
[2016-05-08] MEDS ORDERED: NALOXONE HCL 0.4 MG/ML AMP IV PRN (04:15)
[2016-05-08] MEDS ORDERED: SODIUM CHLORIDE 0.9% FLUSH 5 ML FLUSH FLUSH PRN (04:15)
[2016-05-08] MEDS ORDERED: RESP: ALBUTEROL 2.5 MG/3 ML NEB (PRN) NEB (04:15)
--- NOTE | 2016-05-08 10:10 | EKG ---
Date Performed: 05/08/2016 Time Performed: 02:29:25 PTAGE: 60 years EKG: Sinus rhythm OCCASIONAL PAC POOR R WAVE PROGRESSION POSSIBLE RIGHT VENTRICULAR CONDUCTION DELAY ABNORMAL RHYTHM E CG PREVIOUS TRACING : 05/06/2016 22.10 No significant change from previous tracing noted. DOCTOR: Nilo Dempsey Interpretating Date/Time 05/08/2016 10:08:38
[2016-05-08] MEDS: RESP: ALBUTEROL 2.5 MG/3 ML NEB (SCH) NEB ×2 (10:20→15:24)
[2016-05-08] MEDS: ENOXAPARIN SODIUM 40 MG/0.4 ML SYRINGE SQ SCH (10:22)
[2016-05-08] MEDS: SODIUM CHLORIDE 0.9% FLUSH 5 ML FLUSH FLUSH SCH ×2 (10:23→21:43)
--- NOTE | 2016-05-08 13:49 | HHI.HP ---
HPI Service [facility] Primary Care Physician No Primary Care Physician Admission Diagnosis COPD exacerbation, AMS Diagnoses: Chief Complaint: sob Travel History International Travel<30 Days: No Contact w/Intl Traveler <30 Da: No Traveled to Known Affected Are: No History of Present Illness 60 yo female with PMH of COPD, HTN who came to the ED with complaints of sob. The patient is a poor historian she falls asleep easily but is arousable. Says she is getting more sob, she is wheezing. Says she used to have O2 a long time ago but doesn't need O2 lately, syas she doesn't have a pulm to follow up. She denies cough , fever or chills. Says she can't take atrovent or any steroids because she has sweeling and itchiness. She denies chest pain or any pain a t this time. No n/v/d/c. Patient is noted more lethargic, she is following some commands. Says she feels very tired and she is getting more sob. Noted dessating while on 2L. Reordered ABG stat. Review of Systems Except as stated in HPI: all other systems reviewed are Neg 12 system ROS reviewed and negative except as mentioned in HPI Past Family Social History Past Medical History HTN, COPD Past Surgical History Denies any surgical history Reported Medications Last Impressions Chest X-Ray 05/08/16 0154 Signed Impressions: Service Date/Time: Sunday, May 08, 2016 02:16 - CONCLUSION: No acute cardiopulmonary process. Marcio Ramírez MD Allergies: Coded Allergies: Benadryl (Verified Allergy, Severe, Tachycardia, 05/08/16) "MAKES ME FEEL LIKE I TOOK AN AMPHETAMINE" Clindamycin (Verified Allergy, Intermediate, Rash, 05/08/16) Atrovent (Verified Allergy, Unknown, 05/08/16) Uncoded Allergies: STEROIDS (Allergy, Severe, Dizziness, 04/06/16) "STEROIDS MAKE MY BLOOD PRESSURE ELEVATED AND MAKES ME DIZZY" Family History Doesn't know much but denies any COPD in family, HTN or strokes Social History Denies current or previous h/o smoking. Denies EtOH use or illicit drug use. Physical Exam Vital Signs Vital Signs Date Time Temp Pulse Resp B/P Pulse Ox O2 Delivery O2 Flow Rate FiO2 05/08/16 13:05 90 05/08/16 12:25 104 22 127/58 88 05/08/16 10:24 92 Nasal Cannula 4.00 05/08/16 10:20 58 21 05/08/16 09:50 115 132/65 44 05/08/16 06:42 99 18 127/60 93 Nasal Cannula 3 05/08/16 04:14 102 18 122/58 93 Nasal Cannula 4 05/08/16 03:51 98 18 140/67 95 Nasal Cannula 3 05/08/16 02:51 98 Nasal Cannula 2.00 05/08/16 02:09 108 24 188/88 100 Nasal Cannula 2 05/08/16 02:08 20 100 Nasal Cannula 2 05/08/16 02:08 100 Nasal Cannula 2 05/08/16 01:39 103 24 100 Aerosol Mask 6 05/08/16 01:37 98.1 108 24 170/74 99 Physical Exam GENERAL: This is a 60 yo female, obese, falling asleep easily, lethargic, well- nourished, well-developed patient. SKIN: Bilateral LE rash, red nonpainful. No ecchymoses or lesions. Cool and dry. HEAD: Atraumatic. Normocephalic. No temporal or scalp tenderness. EYES: Pupils equal round and reactive. Extraocular motions intact. No scleral icterus. No injection or drainage. ENT: Nose without bleeding, purulent drainage or septal hematoma. Throat without erythema, tonsillar hypertrophy or exudate. Uvula midline. Airway patent. NECK: Trachea midline. No JVD or lymphadenopathy. Supple, nontender, no meningeal signs. CARDIOVASCULAR: Regular rate and rhythm without murmurs, gallops, or rubs. RESPIRATORY: Decreased breath sounds. Scattered wheezes. No accessory muscle use. No rales, or rhonchi. GASTROINTESTINAL: Abdomen soft, non-tender, nondistended. No hepato-splenomegaly , or palpable masses. No guarding. MUSCULOSKELETAL: Extremities without clubbing, cyanosis, or edema. No joint tenderness, effusion, or edema noted. No calf tenderness. Negative Homans sign bilaterally. NEUROLOGICAL: Awake and alert, falling asleep easily, becoming lethargic but arousable on vocal stimuli. CN grossly intact. Motor and sensory grossly within normal limits. Normal speech. Laboratory Laboratory Tests Test 05/08/16 05/08/16 02:00 02:25 White Blood Count 7.4 Red Blood Count 4.28 Hemoglobin 12.9 Hematocrit 38.5 Mean Corpuscular Volume 90.0 Mean Corpuscular Hemoglobin 30.1 Mean Corpuscular Hemoglobin 33.4 Concent Red Cell Distribution Width 14.8 Platelet Count 118 Mean Platelet Volume 9.6 Neutrophils (%) (Auto) 73.9 Lymphocytes (%) (Auto) 8.1 Monocytes (%) (Auto) 14.4 Eosinophils (%) (Auto) 2.5 Basophils (%) (Auto) 1.1 Neutrophils # (Auto) 5.5 Lymphocytes # (Auto) 0.6 Monocytes # (Auto) 1.1 Eosinophils # (Auto) 0.2 Basophils # (Auto) 0.1 CBC Comment DIFF FINAL Differential Comment Sodium Level 140 Potassium Level 4.1 Chloride Level 100 Carbon Dioxide Level 35.0 Anion Gap 5 Blood Urea Nitrogen 8 Creatinine 0.47 Estimat Glomerular Filtration 135 Rate Random Glucose 136 Calcium Level 8.4 Magnesium Level 1.9 Total Bilirubin 0.4 Aspartate Amino Transf 48 (AST/SGOT) Alanine Aminotransferase 60 (ALT/SGPT) Alkaline Phosphatase 89 Total Creatine Kinase 70 Troponin I LESS THAN 0.02 B-Type Natriuretic Peptide 32 Total Protein 6.4 Albumin 3.0 Thyroid Stimulating Hormone 0.641 3rd Gen Ethyl Alcohol Level LESS THAN 3 Blood Gas Puncture Site RT RADIAL Blood Gas Patient Temperature 98.6 Blood Gas HCO3 29 Blood Gas Base Excess 5.3 Blood Gas Oxygen Saturation 93 Arterial Blood pH 7.44 Arterial Blood Partial 45 Pressure CO2 Arterial Blood Partial 144 Pressure O2 Arterial Blood Oxygen Content 15.9 Arterial Blood 4.6 Carboxyhemoglobin Arterial Blood Methemoglobin 1.8 Blood Gas Hemoglobin 11.9 Oxygen Delivery Device NASAL CANNULA Blood Gas Liter Flow 2 Result Diagram: 05/08/1619905/08/16199 Imaging Last Impressions Chest X-Ray 05/08/16153 Signed Impressions: Service Date/Time: Sunday, May 08, 2016 02:16 - CONCLUSION: No acute cardiopulmonary process. Marcio Ramírez MD Assessment and Plan Assessment and Plan 60 yo F with PMH of COPD, HTN COPD with exacerbation. Hypoxia. Acute respiratory failure with hypoxia. ABG reviewed on admission, however patient is noted deteriorating and I did repeat ABG . Repeat ABG with respiratory acidosis, hypoxia, hypercapnia. Patient is allergic to Atrovent and steroids per patient she gets itchy throat and skin ans swelling CXR reviewed no infiltrate Continue albuterol nebs . Monitor O2 saturation, administer O2 supplement, keep O2 sat . 92. ABG on admission noted. The patient is noted more lethargic and her O2 sat is dropping. Repeat ABG reviewed patient with hypoxia, respiratory acidosis. Place on BiPAP. Transfer patient to the ICU for close monitoring and BIPAP. Consult pulmonology EKG no acute ST segment changes, T waves are inverted in V1, V2. No acute ST segment elevation, some PVCs. Monitor on telemetry. Monitor lytes and replace. LE rash red nonpainful.POss cellulitis. No leukocytosis, normal temps, consider antibiotics. HTN: Resume lisinopril. Monitor BP. Holds if low BP. DVT ppx with lovenox Transfer to the floor patient needs BiPAP Critical time spent 45 min Discussed Condition With patient, nurse Physician Certification 2 Midnight Certification Type: Admission for Inpatient Services Order for Inpatient Services The services are ordered in accordance with Medicare regulations or non- Medicare payer requirements, as applicable. In the case of services not specified as inpatient-only, they are appropriately provided as inpatient services in accordance with the 2-midnight benchmark. Estimated LOS (days): 3 days is the estimated time the patient will need to remain in the hospital, assuming treatment plan goals are met and no additional complications. Post-Hospital Plan: Not yet determined Rosalinda Clarke MD May 08, 2016 13:49
[2016-05-08 14:22] LABS: BLOOD GAS CARBOXYHEMOGLOBIN 4.1 % (0-4); BLOOD GAS HCO3 36 mmol/L (22-26); BLOOD GAS METHEMOGLOBIN 1.9 % (0-2); BLOOD GAS O2 HGB SATURATION 82 % (90-100); BLOOD GAS OXYGEN CONTENT 13.9 Vol % (12.0-20.0); BLOOD GAS PCO2 79 mmHg (38-42); BLOOD GAS PO2 55 mmHG (61-120); CRITICAL VALUE YES; OXYGEN DEVICE NASAL CANNULA; TEMP CORR TO 98.6
[2016-05-08 14:23] LABS: DRAW SITE LT RADIAL; LITER FLOW 4 L/M; NUMBER OF ARTERIAL PUNCTURES 1; STAT YES; ULNAR PULSE PRESENT
[2016-05-08 17:49] LABS: BLOOD GAS BASE EXCESS 6.5 mmol/L (-2-2); BLOOD GAS CARBOXYHEMOGLOBIN 3.1 % (0-4); BLOOD GAS HCO3 34 mmol/L (22-26); BLOOD GAS METHEMOGLOBIN 0.9 % (0-2); BLOOD GAS O2 HGB SATURATION 92 % (90-100); BLOOD GAS OXYGEN CONTENT 15.8 Vol % (12.0-20.0); BLOOD GAS PCO2 86 mmHg (38-42); BLOOD GAS PO2 86 mmHg (61-120); BLOOD GAS TOTAL HGB 12.2 G/DL (12.0-16.0); CRITICAL VALUE YES; TEMP CORR TO 98.6
[2016-05-08 17:50] LABS: DRAW SITE RT RADIAL; FIO2 40 %; NUMBER OF ARTERIAL PUNCTURES 1; OXYGEN DEVICE BiPAP; STAT YES; VENT SETTINGS IPAP 12/EPAP 5
[2016-05-08] MEDS ORDERED: MIDAZOLAM HCL 5 MG/ML VIAL (1 ML) ONE (18:32)
--- NOTE | 2016-05-08 19:01 | MB ---
cc: Otto JUDD DATE OF CONSULTATION 05/08/16 HISTORY OF PRESENT ILLNESS Ms. Ospina is a 60-year-old white female who presented to the emergency room today after actually having been discharged yesterday and she was also here April 27 for edema and April 14 for the same thing. She was in April 06 for chronic back pain. Therefore, this is her fifth admission through the emergency room. Today she came in with somewhat altered mental status and complaint of dyspnea. She is a terrible historian and is unable to give me much information, is easily aroused but seems drowsy. O2 saturations were low on presentation in the 80s, although at present they are normal at 95% on two liters nasal oxygen. She did have laboratory on presentation with a white count of 7400, hemoglobin of 12, normal platelet count, a little low 118. Initial blood gases pO2 144, pH 7.4, pCO2 45 on 2 liters, bicarb was high in the blood at 35, BUN and creatinine are normal. BNP is normal. Albumin is three. Troponin was low. Liver functions are somewhat abnormal. There is a question of alcohol use. Alcohol level currently though was low. PAST MEDICAL HISTORY Recorded history in the chart is 1. Chronic obstructive pulmonary disease 2. Anxiety and depression, 3. Migraine headaches 4. History of peptic ulcer disease, 5. Fibromyalgia 6. Diverticulitis 7. T11 compression fracture in the past. 8. Psychiatric history of depression and suicidal ideation apparently last year. SOCIAL HISTORY She said she only moved here from [facility] several weeks ago. She was staying with a friend, but she said there is some problems there. I got an impression that she may have been put out of that living situation. I wonder if she is homeless. No current alcohol use. She denies it. No current tobacco use. apparently. ALLERGIES Listed allergies to ATROVENT STEROIDS MEDICATIONS Reviewed in the EMR. PHYSICAL EXAMINATION GENERAL: She is drowsy but easily aroused, a very poor historian, seems a little confused. VITAL SIGNS: She is afebrile, heart rate 100, blood pressure is 140/70, saturation in the mid 90s on 2 liters. HEENT: Sclerae anicteric. Mucous membranes are moist. NECK: Supple CHEST: Actually quite clear. No audible wheezing or congestion. CARDIAC: Regular rhythm. No harsh murmur. No audible S3. ABDOMEN: Soft. EXTREMITIES: She does have significant lower extremity edema and venostasis changes, appears chronic. She had ultrasounds of her legs on one of her previous ER visits May 06. They were negative. She also had a CT angiogram at that time which revealed some apical emphysematous changes but no infiltrates. No significant effusions. LABORATORY DATA Additional laboratory as noted above. DISCUSSION The patient presents with altered mental status, seems somnolent but easily aroused. Chronic edema is apparent and history of COPD. No acute infiltrates are noted on x-ray. Her white count is normal. Her electrolytes are fine. BUN and creatinine are normal. She has not had a full drug screen, only an alcohol level. The question would be whether or not she has any other drugs on board. At the time of this dictation, which is several hours after my original contact with the patient, I noticed that she had a blood gas at 14:15 and her pO2 had dropped to 55 on 4 liters with a pH of 7.28, pCO2 that had risen from 45-79. I immediately called to check her status. She had been transferred from the ER to room 234 and I spoke to her nurse. They have been struggling to try to keep her on BiPap. She was intermittently refusing and had sounded more confused. I put in a stat order for transfer to the Intensive Care Unit and I also called Dr. Arnett, the critical care physician, as it looks to me from these blood gases as though she is in impending respiratory failure. The patient has been receiving aerosol treatment. She was placed on Lovenox as well. Further diagnostic and/or therapeutic intervention is going to depend on the critical care evaluation and her ongoing clinical course. I will defer management at this point to critical care and follow up with regard to any ongoing pulmonary issues as well. R. MD CHELSY Graves/ /5:36 PM /6:49 PM
[2016-05-08] MEDS ORDERED: MIDAZOLAM HCL 5 MG/ML VIAL (1 ML) IV PUSH ONE (19:15)
[2016-05-08] MEDS ORDERED: ROCURONIUM INJ 50 MG/5 ML VIAL IV PUSH ONE (19:15)
[2016-05-08 19:42] LABS: BLOOD, URINE NEG (NEG); GLUCOSE,URINE NEG (NEG); KETONE, URINE NEG (NEG); MUCUS URINE FEW /lpf (OCC); NITRITE,URINE NEG (NEG); PH, URINE 5.5 (5.0-8.5); URINE COLOR YELLOW (YELLW/STRAW)
[2016-05-08 19:43] LABS: COMMENT (UR) CATH-CULT NOT IND; CULTURE IF INDICATED CATH CULTURE NOT IND
--- NOTE | 2016-05-08 20:02 | PD.CONS ---
HPI Service Critical Care Medicine Consult Requested By [facility] Reason for Consult Respiratory distress/obtundation Primary Care Physician No Primary Care Physician History of Present Illness Presents with CO2 retention, now worsening mental status and worsening CO2 retention. She feels flushed and warm, possibly septic from chronic inflammation in legs. Will start broad abx coverage after cultures. Review of Systems ROS Unobtainable. Obtunded, no family Past Family Social History Allergies: Coded Allergies: Benadryl (Verified Allergy, Severe, Tachycardia, 05/08/16) "MAKES ME FEEL LIKE I TOOK AN AMPHETAMINE" Clindamycin (Verified Allergy, Intermediate, Rash, 05/08/16) Atrovent (Verified Allergy, Unknown, 05/08/16) Uncoded Allergies: STEROIDS (Allergy, Severe, Dizziness, 04/06/16) "STEROIDS MAKE MY BLOOD PRESSURE ELEVATED AND MAKES ME DIZZY" Past Medical History Past Medical History Narrative Medical The patient's past medical history is significant for COPD, anxiety and depression, migraine headaches, history of ovarian cysts, peptic ulcer disease, fibromyalgia, history of diverticulitis, history of T11 compression fracture, history of uterine fibroids. Asthma: Yes Anxiety: Yes Depression: Yes COPD: Yes (EMPHYSEMA) Diminished Hearing: No Diverticulitis: Yes Fibromyalgia: Yes Gastrointestinal Disorders: Yes (GALLSTONES) Genitourinary: Yes (UTERINE FIBROID TUMORS) Herniated Disk: Yes (LUMBAR) Musculoskeletal: Yes (T11 COMPRESSION FX: DX IN NOV, 2015) Psychiatric: Yes (PTSD, SUICIDAL IDEATION: LAST EPISODE: SEPTEMBER 2015) Respiratory: Yes (ASTHMA) Migraines: Yes Pneumonia: Yes Ulcer: Yes (PUD) Tetanus Vaccination: Unknown Influenza Vaccination: No Menopausal: Yes : 1 Para: 1 Ovarian Cysts: Yes Past Surgical History Narrative Surgical The patient's past surgical history is significant for a tonsillectomy, history of posttraumatic stress disorder. Oral Surgery: Yes Tonsillectomy: Yes Social History Alcohol Use: No Tobacco Use: No Substance Use: No Allergies-Medications Allergies-Medications (Allergen,Severity, Reaction): Coded Allergies: Benadryl (Verified Allergy, Severe, Tachycardia, 05/08/16) "MAKES ME FEEL LIKE I TOOK AN AMPHETAMINE" Clindamycin (Verified Allergy, Intermediate, Rash, 05/08/16) Atrovent (Verified Allergy, Unknown, 05/08/16) Uncoded Allergies: STEROIDS (Allergy, Severe, Dizziness, 04/06/16) "STEROIDS MAKE MY BLOOD PRESSURE ELEVATED AND MAKES ME DIZZY" Reported Meds & Prescriptions Reported Meds & Active Scripts Active Keflex (Cephalexin) 500 Mg Cap 500 Mg PO Q6H 7 Days Reported Lisinopril 20 Mg Tab 20 Mg PO DAILY Ventolin Hfa 18 GM Inh (Albuterol Sulfate) 90 Mcg/Act Aer 2 Puff INH Q4H PRN Physical Exam Vital Signs Vital Signs Date Time Temp Pulse Resp B/P Pulse Ox O2 Delivery O2 Flow Rate FiO2 05/08/16 18:35 98.8 95 21 142/66 93 05/08/16 16:00 96 40 05/08/16 15:30 98.9 105 24 149/70 90 05/08/16 13:05 90 05/08/16 12:25 104 22 127/58 88 05/08/16 10:24 92 Nasal Cannula 4.00 05/08/16 10:20 58 21 05/08/16 09:50 115 132/65 44 05/08/16 06:42 99 18 127/60 93 Nasal Cannula 3 05/08/16 04:14 102 18 122/58 93 Nasal Cannula 4 05/08/16 03:51 98 18 140/67 95 Nasal Cannula 3 05/08/16 02:51 98 Nasal Cannula 2.00 05/08/16 02:09 108 24 188/88 100 Nasal Cannula 2 05/08/16 02:08 20 100 Nasal Cannula 2 05/08/16 02:08 100 Nasal Cannula 2 05/08/16 01:39 103 24 100 Aerosol Mask 6 05/08/16 01:37 98.1 108 24 170/74 99 Physical Exam Gen: Unresponsive. Head: Atraumatic. Neck: Supple, mild snoring. Lungs: Poor air entry. light wheezes. Heart: NL S1S2, no m,r. Neck veins full. Abdomen: Benign, soft, no guarding. Extremities: Warm, well perfused. Flushed. 2+ chronic edema both lower legs with induration. Neuro: Withdraws 4 limbs to stimulation. Otherwise unresponsive. Laboratory Laboratory Tests Test 05/08/16 05/08/16 05/08/16 05/08/16 02:00 02:25 14:15 17:38 White Blood Count 7.4 Red Blood Count 4.28 Hemoglobin 12.9 Hematocrit 38.5 Mean Corpuscular Volume 90.0 Mean Corpuscular Hemoglobin 30.1 Mean Corpuscular Hemoglobin 33.4 Concent Red Cell Distribution Width 14.8 Platelet Count 118 Mean Platelet Volume 9.6 Neutrophils (%) (Auto) 73.9 Lymphocytes (%) (Auto) 8.1 Monocytes (%) (Auto) 14.4 Eosinophils (%) (Auto) 2.5 Basophils (%) (Auto) 1.1 Neutrophils # (Auto) 5.5 Lymphocytes # (Auto) 0.6 Monocytes # (Auto) 1.1 Eosinophils # (Auto) 0.2 Basophils # (Auto) 0.1 CBC Comment DIFF FINAL Differential Comment Sodium Level 140 Potassium Level 4.1 Chloride Level 100 Carbon Dioxide Level 35.0 Anion Gap 5 Blood Urea Nitrogen 8 Creatinine 0.47 Estimat Glomerular Filtration 135 Rate Random Glucose 136 Calcium Level 8.4 Magnesium Level 1.9 Total Bilirubin 0.4 Aspartate Amino Transf 48 (AST/SGOT) Alanine Aminotransferase 60 (ALT/SGPT) Alkaline Phosphatase 89 Total Creatine Kinase 70 Troponin I LESS THAN 0.02 B-Type Natriuretic Peptide 32 Total Protein 6.4 Albumin 3.0 Thyroid Stimulating Hormone 0.641 3rd Gen Ethyl Alcohol Level LESS THAN 3 Blood Gas Puncture Site RT RADIAL LT RADIAL RT RADIAL Blood Gas Patient Temperature 98.6 98.6 98.6 Blood Gas HCO3 29 36 34 Blood Gas Base Excess 5.3 9.0 6.5 Blood Gas Oxygen Saturation 93 82 92 Arterial Blood pH 7.44 7.28 7.22 Arterial Blood Partial 45 79 86 Pressure CO2 Arterial Blood Partial 144 55 86 Pressure O2 Arterial Blood Oxygen Content 15.9 13.9 15.8 Arterial Blood 4.6 4.1 3.1 Carboxyhemoglobin Arterial Blood Methemoglobin 1.8 1.9 0.9 Blood Gas Hemoglobin 11.9 12.0 12.2 Oxygen Delivery Device NASAL CANNULA NASAL CANNULA BiPAP Blood Gas Liter Flow 2 4 Blood Gas Ventilator Setting IPAP 12/EPAP 5 Blood Gas Inspired Oxygen 40 Test 05/08/16 17:50 Urine Color YELLOW Urine Turbidity CLEAR Urine pH 5.5 Urine Specific [place] 1.018 Urine Protein TRACE Urine Glucose (UA) NEG Urine Ketones NEG Urine Occult Blood NEG Urine Nitrite NEG Urine Bilirubin NEG Urine Urobilinogen LESS THAN 2.0 Urine Leukocyte Esterase NEG Urine RBC LESS THAN 1 Urine WBC LESS THAN 1 Urine Mucus FEW Microscopic Urinalysis Comment CATH-CULT NOT IND Result Diagram: 05/08/1619905/08/16199 Assessment and Plan Assessment and Plan Assessment: 1. Hypercapneic Respiratory Failure. 2. Chronic breakdown lower extremities. 3. Encephalopathy. Plan: 1. Intubation. 2. PRVC vent mode. 3. ABG after 4 hours. 4. ABX coverage for legs. 5. Minimal sedation. 6. Protonix. 7. Heparin sq DVT px. Overall impression: She is critically ill with hypercapneic respiratory failure requiring intubation and ventilator support. Skin is consistent with low level sepsis - flushed, red. Legs may be source. Critical care 46 mins aside for procedures León Garland MD May 08, 2016 20:02
--- NOTE | 2016-05-08 20:07 | PD.PROCEDR ---
Procedure Note Procedure DX: Hypercapneic Respiratory Failure (J96.02) OP: Orotracheal Intubation (10740) Procedure: Bag mask ventilation. Versed 5 mg and rocuronium 100 mg iv. Intubated orall with 7.5 tube. Position confirmed with CO2 detection, breath sounds, sats 100%. CXR ordered, will review. León Garland MD May 08, 2016 20:07
[2016-05-08 20:49] LABS: AMPHETAMINE, URINE NEG (NEG); BARBITURATES, URINE NEG (NEG); COCAINE, URINE NEG (NEG)
[2016-05-08] MEDS: CHLORHEXIDINE 0.12% (ORAL KIT) 15 ML CUP MT SCH (21:42)
[2016-05-08] MEDS: PROPOFOL 1000 MG/100 ML INJ 100 ML IV SCH (21:42)
[2016-05-08] MEDS ORDERED: CHLORHEXIDINE GLUCONATE 2 % 1 PACK (2 CLOTHS)(extra cloths) TOP PRN (22:00)
[2016-05-08 22:57] LABS: BLOOD GAS BASE EXCESS 7.4 mmol/L (-2-2); BLOOD GAS CARBOXYHEMOGLOBIN 3.1 % (0-4); BLOOD GAS HCO3 33 mmol/L (22-26); BLOOD GAS METHEMOGLOBIN 0.9 % (0-2); BLOOD GAS O2 HGB SATURATION 93 % (90-100); BLOOD GAS OXYGEN CONTENT 15.2 Vol % (12.0-20.0); BLOOD GAS PCO2 57 mmHg (38-42); BLOOD GAS PO2 82 mmHg (61-120); BLOOD GAS TOTAL HGB 11.6 G/DL (12.0-16.0); TEMP CORR TO 98.6
[2016-05-08 22:58] LABS: CRITICAL VALUE YES; OXYGEN DEVICE VENTILATOR
[2016-05-08 23:00] LABS: DRAW SITE RT RADIAL; FIO2 45 %; NUMBER OF ARTERIAL PUNCTURES 1; STAT NO; ULNAR PULSE PRESENT; VENT SETTINGS PRVC
--- NOTE | 2016-05-08 23:01 | RADRPT ---
EXAM DATE/TIME: 05/08/2016 22:36 [facility] COMPARISON: CHEST SINGLE AP, May 08, 2016, 2:16. INDICATIONS : Post ET tube placement. MEDICAL HISTORY : Chronic obstructive pulmonary disease. Emphysema. Diverticulitis.Fibromyalgia. SURGICAL HISTORY : Tonsillectomy. ENCOUNTER: Subsequent ACUITY: 3 days PAIN SCORE: Non-responsive. LOCATION: Bilateral chest FINDINGS: A single view of the chest demonstrates interval alteration in the radiographic appearance of the sh[address]. Lung bases are no completely included on this exam but I do believe there is interval development of a left basilar consolidation/effusion as well as moderate interstitial prominence characteristic of some degree of vascular congestion or volume overload in both lung bases. Interval placement of an endotracheal with the tip approximately 1.7 cm above the pradeep. Nasogastric tube enters the stomach and appears to extend off the inferior aspect of the film. Osseous structures are intact. CONCLUSION: 1. Interval placement of an endotracheal and nasogastric tubes. Endotracheal tube is approximately 1. 7 cm from the pradeep and the nasogastric tube enters the stomach and extends off inferior aspect of t he film. 2. Interval development of left basilar consolidation/effusion with some interstitial prominence priya acteristic of some degree of vascular congestion or volume overload. Marcio Ramírez MD on May 08, 2016 at 22:55 Board Certified Radiologist. This report was verified electronically.
[2016-05-08] MEDS ORDERED: Vancomycin Consult Pharmacy 1 EA OTHER SCH (23:30)
[2016-05-08] MEDS: PIPERACIL-TAZO 3.375 GM PREMIX 50 ML IV SCH (23:36)
[2016-05-09] VITALS (16 sets, daily range): BP systolic 99–132; BP diastolic 54–63; PULSE 79–89; RESP 16; TEMP 99–99.8; O2SAT 91–96
[2016-05-09] MEDS ORDERED: VANCOMYCIN INJ 1,500 MG in SODIUM CHLORID 0.9% 500 ML INJ 500 ML IV SCH (01:00)
[2016-05-09] MEDS: PROPOFOL 1000 MG/100 ML INJ 100 ML IV SCH ×6 (01:09→19:33)
[2016-05-09] MEDS: RESP: ALBUTEROL 2.5 MG/3 ML NEB (SCH) NEB ×6 (01:13→23:14)
[2016-05-09] MEDS ORDERED: ACETAMINOPHEN 325 MG TAB PO PRN (01:30)
[2016-05-09] MEDS ORDERED: CHLORHEXIDINE GLUCONATE 2 % 1 PACK (2 CLOTHS)(taper/protocol) TOP SCH (04:00)
[2016-05-09 04:08] LABS: BLOOD GAS BASE EXCESS 7.1 mmol/L (-2-2); BLOOD GAS CARBOXYHEMOGLOBIN 2.6 % (0-4); BLOOD GAS HCO3 32 mmol/L (22-26); BLOOD GAS METHEMOGLOBIN 0.9 % (0-2); BLOOD GAS O2 HGB SATURATION 91 % (90-100); BLOOD GAS OXYGEN CONTENT 14.3 Vol % (12.0-20.0); BLOOD GAS PCO2 55 mmHg (38-42); BLOOD GAS PO2 72 mmHg (61-120); BLOOD GAS TOTAL HGB 11.1 G/DL (12.0-16.0); TEMP CORR TO 98.6
[2016-05-09 04:09] LABS: CRITICAL VALUE YES; OXYGEN DEVICE VENTILATOR
[2016-05-09 04:10] LABS: VENT SETTINGS PRVC/AC
[2016-05-09 04:11] LABS: DRAW SITE RT RADIAL; FIO2 45 %; NUMBER OF ARTERIAL PUNCTURES 1; STAT NO; ULNAR PULSE PRESENT
[2016-05-09 04:30] LABS: AUTOMATED NEUTROPHIL # 4.4 TH/MM3 (1.8-7.7); BASOPHIL # 0.1 TH/MM3 (0-0.2); BASOPHIL % 1.1 % (0.0-2.0); EOSINOPHIL # 0.1 TH/MM3 (0-0.4); HEMATOCRIT 34.2 % (35.0-46.0); HEMO FLAGS DIFF FINAL; LYMPH % 11.7 % (9.0-44.0); LYMPHOCYTE # 0.7 TH/MM3 (1.0-4.8); MEAN CELL VOLUME 91.2 FL (80.0-100.0); MEAN CORPUSCULAR HEMOGLOBIN 29.4 PG (27.0-34.0); MEAN CORPUSCULAR HGB CONC 32.2 % (32.0-36.0); MONO % 13.1 % (0.0-8.0); NEUT % 72.1 % (16.0-70.0); PLATELET COUNT 125 TH/MM3 (150-450); RED BLOOD COUNT 3.75 MIL/MM3 (4.00-5.30); WHITE BLOOD COUNT 6.2 TH/MM3 (4.0-11.0)
[2016-05-09 04:54] LABS: ANION GAP 5 MEQ/L (5-15); AST (GOT) 30 U/L (15-37); BICARBONATE 33.7 MEQ/L (21.0-32.0); BLOOD UREA NITROGEN 8 MG/DL (7-18); CHLORIDE 103 MEQ/L (98-107); GLOMERULAR FILTRATION RATE 131 ML/MIN (>89); POTASSIUM 4.1 MEQ/L (3.5-5.1); SODIUM (NA) 142 MEQ/L (136-145)
[2016-05-09 04:59] LABS: ALKALINE PHOSPHATASE 74 U/L (45-117); ALT (GPT) 49 U/L (10-53); TOTAL BILIRUBIN ADULT 0.6 MG/DL (0.2-1.0)
[2016-05-09] MEDS: PIPERACIL-TAZO 3.375 GM PREMIX 50 ML IV SCH ×3 (05:34→17:03)
[2016-05-09] MEDS: SODIUM CHLORIDE 0.9% FLUSH 5 ML FLUSH FLUSH SCH ×2 (08:20→19:33)
[2016-05-09] MEDS: CHLORHEXIDINE 0.12% (ORAL KIT) 15 ML CUP MT SCH ×2 (08:20→19:32)
[2016-05-09] MEDS: ENOXAPARIN SODIUM 40 MG/0.4 ML SYRINGE SQ SCH (08:21)
--- NOTE | 2016-05-09 08:55 | HHI.CCPN ---
Subjective Remarks/Hospital Course Presents with CO2 retention, now worsening mental status and worsening CO2 retention. She feels flushed and warm, possibly septic from chronic inflammation in legs. Will start broad abx coverage after cultures. SUBJ 05/09: Intubated yesterday for COPD exacerbation and sepsis. Currently on propofol. Wakes up easily follows commands Objective Vital Signs Date Time Temp Pulse Resp B/P Pulse Ox O2 Delivery O2 Flow Rate FiO2 05/09/16 06:00 45 05/09/16 06:00 89 05/09/16 04:12 95 05/09/16 04:00 99.6 16 108/54 05/08/16 10:24 Nasal Cannula 4.00 Intake and Output 05/08/16 05/08/16 05/09/16 08:00 16:00 00:00 Intake Total 200 ml Output Total 175 ml Balance 25 ml Result Diagram: 05/09/16 0406 05/09/16 0406 Other Results Laboratory Tests Test 05/08/16 05/08/16 05/08/16 05/09/16 14:15 17:38 22:42 03:55 Blood Gas Puncture Site LT RADIAL RT RADIAL RT RADIAL RT RADIAL Blood Gas Patient Temperature 98.6 98.6 98.6 98.6 Blood Gas HCO3 36 mmol/L 34 mmol/L 33 mmol/L 32 mmol/L (22-26) (22-26) (22-26) (22-26) Blood Gas Base Excess 9.0 mmol/L 6.5 mmol/L 7.4 mmol/L 7.1 mmol/L (-2-2) (-2-2) (-2-2) (-2-2) Blood Gas Oxygen Saturation 82 % (90-100) 92 % (90-100) 93 % (90-100) 91 % (90- 100) Arterial Blood pH 7.28 7.22 7.37 7.38 (7.380-7.420) (7.380-7.420) (7.380-7.420) (7.380-7.420) Arterial Blood Partial 79 mmHg (38-42) 86 mmHg (38-42) 57 mmHg (38-42) 55 mmHg ( 38-42) Pressure CO2 Arterial Blood Partial 55 mmHG 86 mmHg 82 mmHg 72 mmHg Pressure O2 (61-120) (61-120) (61-120) (61-120) Arterial Blood Oxygen Content 13.9 Vol % 15.8 Vol % 15.2 Vol % 14.3 Vol % (12.0-20.0) (12.0-20.0) (12.0-20.0) (12.0-20.0) Arterial Blood 4.1 % (0-4) 3.1 % (0-4) 3.1 % (0-4) 2.6 % (0-4) Carboxyhemoglobin Arterial Blood Methemoglobin 1.9 % (0-2) 0.9 % (0-2) 0.9 % (0-2) 0.9 % (0-2) Blood Gas Hemoglobin 12.0 G/DL 12.2 G/DL 11.6 G/DL 11.1 G/DL (12.0-16.0) (12.0-16.0) (12.0-16.0) (12.0-16.0) Oxygen Delivery Device NASAL CANNULA BiPAP VENTILATOR VENTILATOR Blood Gas Liter Flow 4 L/M Blood Gas Ventilator Setting IPAP 12/EPAP 5 PRVC PRVC/AC Blood Gas Inspired Oxygen 40 % 45 % 45 % Objective Remarks Gen: Intubated sedated Head: Atraumatic. Neck: Supple, mild snoring. Lungs: Poor air entry. Mild bilateral wheezes Heart: NL S1S2, no m,r. Neck veins full. Abdomen: Benign, soft, no guarding. Extremities: Warm, well perfused. 2+ chronic edema both lower legs with induration. Neuro: Wakes up easily follows commands in all 4 extremities on sedation hold. Withdraws 4 limbs to stimulation. A/P Assessment and Plan Assessment: 1. Hypercapneic Respiratory Failure. 2. Chronic breakdown lower extremities. 3. Encephalopathy. 4. Left lower lobe pneumonia Plan: Neuro: -Propofol for sedation and ventilator synchrony, daily sedation vacation Resp: -PRVC vent mode. -Albuterol nebulization every 4 hours scheduled and when necessary -Start spontaneous breathing trials -IV Solu-Medrol 125 mg 1 and 60 every 12 (Listed steroid allergy is not true allergy) -Broad-spectrum antibiotics with Zosyn CV: -Monitor heart rate and blood pressure GI: -Protonix for GI prophylaxis. Start tube feeds in 24 hours if not extubated : -Monitor in known function closely, Daniels catheter ID: Left lower lobe pneumonia Cellulitis -Broad-spectrum antibiotics with Zosyn for probable cellulitis and COPD exacerbation/LLL infiltrate -Follow up on cultures, and azithromycin for atypical coverage Endo: -Electrolyte replacement protocol Proph: -Protonix. -Heparin sq DVT px. Overall impression: She is critically ill with hypercapneic respiratory failure requiring intubation and ventilator support. Skin is consistent with low level sepsis - flushed, red. Social sepsis pneumonia and cellulitis Critical care 32 mins aside for procedures Darrius Borrego MD May 09, 2016 08:55
[2016-05-09] MEDS ORDERED: AZITHROMYCIN INJ 500 MG in SODIUM CHLOR 0.9% 250 ML INJ 250 ML IV SCH (09:00)
[2016-05-09] MEDS ORDERED: FAMOTIDINE 20 MG/2 ML VIAL IV PUSH SCH (09:00)
[2016-05-09] MEDS ORDERED: methylPREDNISolone SOD SUCC 125 MG/2 ML VIAL IV PUSH ONE (09:00)
[2016-05-09] MEDS ORDERED: VANCOMYCIN 1,500 MG/NS 500 ML IV SCH ×2 (13:00)
[2016-05-09] MEDS ORDERED: methylPREDNISolone SOD SUCC 125 MG/2 ML VIAL IV PUSH SCH (21:00)
[2016-05-10] MEDS ORDERED: PHARMACY ORDERED LAB XX ONE (12:45)
== END 2016-05-10 00:13 | disposition left against medical advice (07) | DRG 871 ==
LOC: NEPE 01:33 → NEDA 04:03 → NEDH 07:38 → NEPGCP 09:23 → HCIN 17:26 → HIMN 18:30
PROVIDERS: ADMIT Hospitalist; ATTEND Hospitalist
PROC: 0BH17EZ Insertion of Endotracheal Airway into Trachea, Via Natural or Artificial Opening (ICD-10-PCS; principal; 2016-05-08)
PROC: 5A1935Z Respiratory Ventilation, Less than 24 Consecutive Hours (ICD-10-PCS; 2016-05-08)
DX: A41.9 Sepsis, unspecified organism (principal); G93.40 Encephalopathy, unspecified; J96.01 Acute respiratory failure with hypoxia; J44.0 Chronic obstructive pulmonary disease with (acute) lower respiratory infection; J18.9 Pneumonia, unspecified organism; J44.1 Chronic obstructive pulmonary disease with (acute) exacerbation; J45.901 Unspecified asthma with (acute) exacerbation; L03.116 Cellulitis of left lower limb; L03.115 Cellulitis of right lower limb; R65.20 Severe sepsis without septic shock; G43.909 Migraine, unspecified, not intractable, without status migrainosus; F32.9 Major depressive disorder, single episode, unspecified; M79.7 Fibromyalgia; F41.9 Anxiety disorder, unspecified; D25.9 Leiomyoma of uterus, unspecified; I10 Essential (primary) hypertension; R00.0 Tachycardia, unspecified
CPT/HCPCS: 36600; 71010; 71275; 80053; 80307; 81001; 82550; 82552; 82805; 83605; 83735; 83880; 84443; 84484; 85025; 85610; 85730; 87040; 87070; 87205; 87641; 93005; 93970; 94002; 94003; 94640; 94664; 96360; J0456; J1650; J2250; J2543; J2930; J3370; J7040; J7050; J7613; Q9967

== ENCOUNTER 2016-05-19 01:43 | Emergency (ER) | payer MEDICARE, OTHER ==
[2016-05-19 01:56] VITALS: BP 177/86; PULSE 93; RESP 15; TEMP 98.8; O2SAT 97
[2016-05-19] MEDS ORDERED: SODIUM CHLORIDE 0.9% FLUSH 5 ML FLUSH IVF PRN (05:15)
--- NOTE | 2016-05-19 05:18 | PD ---
HPI Chief Complaint: Pain: Acute or Chronic Time Seen by Provider: 05:15 Travel History International Travel<30 days: No Contact w/Intl Traveler<30days: No Traveled to known affect area: No History of Present Illness HPI Patient comes in complaining of bilateral foot and leg pain began several days ago. Patient states she's been trying to wash her feet with soap and water to keep them clean but has not been improving her pain. Patient denies any fevers , nausea, vomiting, abdominal pain, chest pain, and shortness of breath. Patient denies any trauma. Denies any radiation of the pain. Patient is sleepy but easily awoken, however the fall back asleep easily. Patient denies any alcohol or drug use. PFSH Past Medical History Asthma: Yes Anxiety: Yes Depression: Yes Cardiovascular Problems: No COPD: Yes Diminished Hearing: No Diverticulitis: Yes Endocrine: No Fibromyalgia: Yes Gastrointestinal Disorders: Yes (GALLSTONES) Genitourinary: Yes (UTERINE FIBROID TUMORS) Herniated Disk: Yes (LUMBAR) Immune Disorder: Yes Musculoskeletal: Yes (T11 COMPRESSION FX: DX IN NOV, 2015) Neurologic: Yes Psychiatric: Yes (PTSD, SUICIDAL IDEATION: LAST EPISODE: SEPTEMBER 2015) Reproductive: Yes Respiratory: Yes (ASTHMA) Migraines: Yes Pneumonia: Yes Ulcer: Yes (PUD) ?: Not Menopausal: Yes : 1 Para: 1 Ovarian Cysts: Yes Past Surgical History Oral Surgery: Yes Tonsillectomy: Yes Other Surgery: Yes Social History Alcohol Use: No Tobacco Use: No (quit this week) Substance Use: No Allergies-Medications (Allergen,Severity, Reaction): Coded Allergies: Benadryl (Verified Allergy, Severe, Tachycardia, 05/19/16) "MAKES ME FEEL LIKE I TOOK AN AMPHETAMINE" Clindamycin (Verified Allergy, Intermediate, Rash, 05/19/16) Atrovent (Verified Allergy, Unknown, 05/19/16) Uncoded Allergies: STEROIDS (Allergy, Severe, Dizziness, 04/06/16) "STEROIDS MAKE MY BLOOD PRESSURE ELEVATED AND MAKES ME DIZZY" Reported Meds & Prescriptions Reported Meds & Active Scripts Active Naprosyn (Naproxen) 500 Mg Tab 500 Mg PO Q12HR PRN Bactrim DS (Sulfamethoxazole-Trimethoprim) 800-160 Mg Tab 1 Tab PO BID Keflex (Cephalexin) 500 Mg Cap 500 Mg PO Q6H 7 Days Reported Lisinopril 20 Mg Tab 20 Mg PO DAILY Ventolin Hfa 18 GM Inh (Albuterol Sulfate) 90 Mcg/Act Aer 2 Puff INH Q4H PRN Review of Systems Except as stated in HPI: all other systems reviewed are Neg Physical Exam Narrative GENERAL: Well-developed, overly nourished, in no acute distress, and non-ill appearing. SKIN: Warm and dry. Erythematous and bilateral lower extremities distally. They are tender palpation. There is no crepitus, fluctuation, or drainage. HEAD: Atraumatic. Normocephalic. EYES: Pupils equal and round. EOMI. No scleral icterus. No injection or drainage. ENT: No nasal bleeding or discharge. Mucous membranes pink and moist. NECK: Trachea midline. Supple. No nuclear rigidity. CARDIOVASCULAR: Dorsal pulses 2+ intact and equal bilaterally. Capillary refill less than 2 seconds. RESPIRATORY: No accessory muscle use. No respiratory distress. MUSCULOSKELETAL: No obvious deformities. No clubbing. No cyanosis. No edema. Full range of motion. NEUROLOGICAL: Awake and alert. No obvious cranial nerve deficits. Motor grossly within normal limits. Normal speech. PSYCHIATRIC: Appropriate mood and affect; insight and judgment normal. Data Data Last Documented VS Orders Basic Metabolic Panel (Bmp) (05/19/16 05:03) Complete Blood Count With Diff (05/19/16 05:03) Ecg Monitoring (05/19/16 05:03) Iv Access Insert/Monitor (05/19/16 05:03) Oximetry (05/19/16 05:03) Oxygen Administration (05/19/16 05:03) Sodium Chloride 0.9% Flush (Ns Flush) (05/19/16 05:15) Labs MDM Medical Decision Making Medical Screen Exam Complete: Yes Emergency Medical Condition: Yes Medical Record Reviewed: Yes Differential Diagnosis Cellulitis, venous stasis dermatitis, chronic skin changes, other Narrative Course Previous records but show rash in patient's bilateral lower extremity appears to be chronic. We'll check labs to rule out a possible infection. It is noted on previous admission with rash on legs antibiotics was started. 0625 patient reassessed is now more awake. Patient is asking for something to eat and drink. Patient ambulated to the restroom without difficulty. Patient in no obvious distress upon re-evaluation. All pertinent laboratory result(s) discussed with patient. I discussed patient with Dr. Kelsey prior to discharge, who is in agreement with plan of care and disposition. Patient was asked if they wanted to speak to my attending, which the patient did not wish to do at this time. Any questions/concerns in reference to patient diagnosis/condition discussed and clarified prior to patient's discharge. Reinforced sheer importance of close follow up with patient's primary physician or primary care clinic. Instructed patient to return to ED immediately, if symptoms return/worsen. Pt showed understanding of above instructions. Further instructions and recommendations were detailed in discharge paperwork. Pt ambulated without difficulty out of ED at discharge. Diagnosis Primary Impression: Venous stasis dermatitis of both lower extremities Additional Impression: Peripheral edema Referrals: [facility] Patient Instructions: General Instructions Additional Instructions: Follow-up with your primary care physician in 2-3 days for evaluation. Take all medication as prescribed. Return to the emergency department if symptoms get worse. Med/Other Pt SpecificInfo: Prescription(s) given Scripts Naproxen (Naprosyn)500 Mg [id number] Mg PO Q12HR PRN (PAIN SCALE 1 TO 10) #12 TAB Ref 0 Prov:Romy Kelsey MD 05/19/16 Sulfamethoxazole-Trimethoprim (Bactrim DS)800-160 Mg Tab1 Tab PO BID #14 TAB Ref 0 Prov:Romy Kelsey MD 05/19/16 Disposition: 01 DISCHARGE HOME Condition: Stable Jono Dc May 19, 2016 05:17 Rate Random Glucose 95 MG/DL Calcium Level 9.0 MG/DL [facility] Medical Decision Making Narrative Course Previous records but show rash in patient's bilateral lower extremity appears to be chronic. We'll check labs to rule out a possible infection. It is noted on previous admission with rash on legs antibiotics was started. 0625 patient reassessed is now more awake. Patient is asking for something to eat and drink. Patient ambulated to the restroom without difficulty. Diagnosis Primary Impression: Venous stasis dermatitis of both lower extremities Additional Impression: Peripheral edema Referrals: [facility] Patient Instructions: General Instructions Additional Instructions: Follow-up with your primary care physician in 2-3 days for evaluation. Take all medication as prescribed. Return to the emergency department if symptoms get worse. Med/Other Pt SpecificInfo: Prescription(s) given Scripts Naproxen (Naprosyn)500 Mg [id number] Mg PO Q12HR PRN (PAIN SCALE 1 TO 10) #12 TAB Ref 0 Prov:Romy Kelsey MD 05/19/16 Sulfamethoxazole-Trimethoprim (Bactrim DS)800-160 Mg Tab1 Tab PO BID #14 TAB Ref 0 Prov:Romy Kelsey MD 05/19/16 Disposition: 01 DISCHARGE HOME Condition: Stable Jono Dc May 19, 2016 05:17
[2016-05-19 05:38] VITALS: RESP 18; O2SAT 89
[2016-05-19 05:51] LABS: AUTOMATED NEUTROPHIL # 4.5 TH/MM3 (1.8-7.7); BASOPHIL # 0.1 TH/MM3 (0-0.2); EOSINOPHIL # 0.2 TH/MM3 (0-0.4); EOSINOPHIL % 3.1 % (0.0-4.0); HEMATOCRIT 38.4 % (35.0-46.0); HEMO FLAGS DIFF FINAL; LYMPH % 11.3 % (9.0-44.0); LYMPHOCYTE # 0.7 TH/MM3 (1.0-4.8); NEUT % 72.6 % (16.0-70.0); PLATELET COUNT 220 TH/MM3 (150-450); RED BLOOD COUNT 4.22 MIL/MM3 (4.00-5.30); RED CELL DISTRIBUTION WIDTH 14.8 % (11.6-17.2); WHITE BLOOD COUNT 6.3 TH/MM3 (4.0-11.0)
[2016-05-19 06:15] LABS: BICARBONATE 34.1 MEQ/L (21.0-32.0); POTASSIUM 3.7 MEQ/L (3.5-5.1)
[2016-05-19] MEDS ORDERED: NAPR500 PO (06:33)
[2016-05-19] MEDS ORDERED: BACT800T5 PO (06:33)
== END 2016-05-19 07:27 | disposition home or self-care (01) ==
LOC: NEPE 01:43
DX: R60.0 Localized edema (principal); I87.2 Venous insufficiency (chronic) (peripheral); R21 Rash and other nonspecific skin eruption; J45.909 Unspecified asthma, uncomplicated; J44.9 Chronic obstructive pulmonary disease, unspecified; Z87.891 Personal history of nicotine dependence; M79.604 Pain in right leg; M79.605 Pain in left leg; M79.7 Fibromyalgia
CPT/HCPCS: 80048; 85025

== ENCOUNTER 2016-05-19 07:34 | Emergency (ER) | payer MEDICARE, OTHER ==
[~2016-05-19] VITALS: Ht 170.2 cm; Wt 100.0 kg
[~2016-05-19 07:34] MED LIST changes: +BACT800T5 PO; +NAPR500 PO
[2016-05-19 07:37] VITALS: BP_SYST 131; BP_SYST 168; BP_DIAS 74; PULSE 85; RESP 14; RESP 17; TEMP 98.2; O2SAT 98
--- NOTE | 2016-05-19 08:35 | PD ---
HPI Chief Complaint: Pain: Acute or Chronic Time Seen by Provider: 08:11 Travel History International Travel<30 days: No Contact w/Intl Traveler<30days: No Traveled to known affect area: No History of Present Illness HPI Patient is a 60-year-old female presents emergency department for second evaluation today of lower extremity pain and swelling. Patient states she's unable to bend her knees. She states that she's had a bump on her left lower leg in the last time she had this bump she was told it was a blood clot. She was seen and evaluated earlier today and had labs drawn which showed a metabolic alkalosis on BMP, and a CBC within normal limits. She was diagnosed with a mild cellulitis and discharged on Bactrim. She returns today stating that she is still concerned and wants to speak with a hand candy cutter. When asked to clarify she cannot. PFSH Past Medical History Asthma: Yes Anxiety: Yes Depression: Yes Cardiovascular Problems: No COPD: Yes Diminished Hearing: No Diverticulitis: Yes Endocrine: No Fibromyalgia: Yes Gastrointestinal Disorders: Yes (GALLSTONES) Genitourinary: Yes (UTERINE FIBROID TUMORS) Herniated Disk: Yes (LUMBAR) Immune Disorder: Yes Musculoskeletal: Yes (T11 COMPRESSION FX: DX IN NOV, 2015) Neurologic: Yes Psychiatric: Yes (PTSD, SUICIDAL IDEATION: LAST EPISODE: SEPTEMBER 2015) Reproductive: Yes Respiratory: Yes (ASTHMA) Migraines: Yes Pneumonia: Yes Ulcer: Yes (PUD) Menopausal: Yes : 1 Para: 1 Ovarian Cysts: Yes Past Surgical History Oral Surgery: Yes Tonsillectomy: Yes Other Surgery: Yes Social History Alcohol Use: No Tobacco Use: No (quit this week) Substance Use: No Allergies-Medications (Allergen,Severity, Reaction): Coded Allergies: Benadryl (Verified Allergy, Severe, Tachycardia, 05/19/16) "MAKES ME FEEL LIKE I TOOK AN AMPHETAMINE" Clindamycin (Verified Allergy, Intermediate, Rash, 05/19/16) Atrovent (Verified Allergy, Unknown, 05/19/16) Uncoded Allergies: STEROIDS (Allergy, Severe, Dizziness, 04/06/16) "STEROIDS MAKE MY BLOOD PRESSURE ELEVATED AND MAKES ME DIZZY" Reported Meds & Prescriptions Reported Meds & Active Scripts Active Naprosyn (Naproxen) 500 Mg Tab 500 Mg PO Q12HR PRN Bactrim DS (Sulfamethoxazole-Trimethoprim) 800-160 Mg Tab 1 Tab PO BID Keflex (Cephalexin) 500 Mg Cap 500 Mg PO Q6H 7 Days Reported Lisinopril 20 Mg Tab 20 Mg PO DAILY Ventolin Hfa 18 GM Inh (Albuterol Sulfate) 90 Mcg/Act Aer 2 Puff INH Q4H PRN Review of Systems Except as stated in HPI: all other systems reviewed are Neg Physical Exam Narrative GENERAL: Well-developed well-nourished no apparent distress. SKIN: Warm and dry. There is some mild erythema representing probable mild cellulitis over the distal aspect of the tib-fib and into her feet bilaterally. HEAD: Atraumatic. Normocephalic. EYES: Pupils equal and round. No scleral icterus. No injection or drainage. ENT: No nasal bleeding or discharge. Mucous membranes pink and moist. NECK: Trachea midline. No JVD. CARDIOVASCULAR: Regular rate and rhythm. No murmur appreciated. RESPIRATORY: No accessory muscle use. Clear to auscultation. Breath sounds equal bilaterally. GASTROINTESTINAL: Abdomen soft, non-tender, nondistended. Hepatic and splenic margins not palpable. MUSCULOSKELETAL: No obvious deformities. No clubbing. No cyanosis. There is 1- 2+ pitting edema bilateral lower extremities from the mid tibia distally. Pulses motor and sensory intact distally in all 4 extremities. Homans sign negative, compartments are soft. NEUROLOGICAL: Awake and alert. No obvious cranial nerve deficits. Motor grossly within normal limits. Normal speech. PSYCHIATRIC: Appropriate mood and affect; insight and judgment normal. Data Data Last Documented VS Vital Signs Date Time Temp Pulse Resp B/P Pulse Ox O2 Delivery O2 Flow Rate FiO2 05/19/16 11:11 96 05/19/16 07:37 98.2 85 17 168/74 Orders Us Leg Venous Doppler Bilat (05/19/16 08:27) [facility] Medical Decision Making Medical Screen Exam Complete: Yes Emergency Medical Condition: Yes Differential Diagnosis Cellulitis, DVT, sepsis highly unlikely. Narrative Course Patient is 60-year-old female presents to emergency department for second evaluation today of lower extremity pain and cellulitis. Patient had labwork including CBC and BMP on last visit to the emergency department is reassuring was discharged on Bactrim. Patient did not have a DVT study and this is recommended to her to complete her workup. Last 24 hours Impressions Lower Extremity Ultrasound 05/19/16 8966 Signed Impressions: Service Date/Time: Thursday, May 19, 2016 08:56 - CONCLUSION: No evidence of DVT. No change compared to the prior study. Raymond Winter MD On revisit patient is sleeping soundly in no obvious distress, arouses is easily. Offered pain medicine in the emergency department she declined. She stable for discharge at this time no indication further workup at this time. Discussed need for taking her antibiotics at home. Discussed follow-up with a primary care physician or the [facility] and return to ED criteria. Diagnosis Primary Impression: Leg pain, bilateral Additional Instructions: Follow-up with the [facility] as previously instructed. Disposition: 01 DISCHARGE HOME Condition: Stable Cj Jarrell MD May 19, 2016 08:35
--- NOTE | 2016-05-19 09:31 | RADRPT ---
EXAM DATE/TIME: 05/19/2016 08:56 [facility] COMPARISON: US LEG BILATERAL VENOUS DOPPLER, May 06, 2016, 22:50. INDICATIONS : Bilateral leg swelling. MEDICAL HISTORY : Diverticulitis. Chronic obstructive pulmonary disease. . Migraine.Emphysema. Asthma. Pneumon ia. Gallstones. Ulcer. Ovarian cysts. Uterine fibroids. [id number] fracture. Post traumatic stres s disorder. Depression. Anxiety. SURGICAL HISTORY : Tonsillectomy. ENCOUNTER: Subsequent ACUITY: 2 weeks PAIN SCORE: 3/10 LOCATION: Bilateral leg. TECHNIQUE: Venous ultrasound of the left and right leg was performed from the inguinal ligament to the proximal calf. Real-time, color Doppler and spectral tracing, compression and augmentation techniques were us ed. FINDINGS: RIGHT LEG: There is normal compressibility of the deep venous system from the inguinal region to the proximal ca lf. No echogenic clot is seen in the lumen of the common femoral, femoral, popliteal, and posterior tibial veins. There is a normal response of the venous system to proximal and distal augmentation an d respiration. LEFT LEG: There is normal compressibility of the deep venous system from the inguinal region to the proximal ca lf. No echogenic clot is seen in the lumen of the common femoral, femoral, popliteal, and posterior tibial veins. There is a normal response of the venous system to proximal and distal augmentation an d respiration. CONCLUSION: No evidence of DVT. No change compared to the prior study. Raymond Winter MD on May 19, 2016 at 9:28 Board Certified Radiologist. This report was verified electronically.
== END 2016-05-19 11:15 | disposition home or self-care (01) ==
LOC: NEPC 07:34
DX: M79.604 Pain in right leg (principal); M79.605 Pain in left leg; J45.909 Unspecified asthma, uncomplicated; J44.9 Chronic obstructive pulmonary disease, unspecified; M79.7 Fibromyalgia; Z87.891 Personal history of nicotine dependence; R60.0 Localized edema
CPT/HCPCS: 80048; 85025; 93970

== ENCOUNTER 2016-05-30 02:07 | Inpatient (IN) | payer MEDICARE, OTHER ==
[~2016-05-30] VITALS: Ht 175.3 cm; Wt 99.0 kg
[2016-05-30] VITALS (13 sets, daily range): BP systolic 119–167; BP diastolic 66–82; PULSE 86–103; RESP 16–20; TEMP 97.8–98.4; O2SAT 81–96
--- NOTE | 2016-05-30 04:27 | PD ---
HPI Chief Complaint: Cold / Flu Symptoms Time Seen by Provider: 04:00 Travel History International Travel<30 days: No Contact w/Intl Traveler<30days: No Traveled to known affect area: No History of Present Illness HPI The patient is a 60-year-old female that comes in because of shortness of breath and wants an albuterol treatment. She does not want any DuoNeb's with the treatment because she states the DuoNeb's irritate her. She does like Pulmicort. She denies any fever. She does not have a nebulizer machine at home. Apparently, this patient has been visiting multiple ERs for various reasons [facility] and took the ambulance in [facility]. PFSH Past Medical History Asthma: Yes Anxiety: Yes Depression: Yes Cardiovascular Problems: Yes COPD: Yes Diminished Hearing: No Diverticulitis: Yes Endocrine: No Fibromyalgia: Yes Gastrointestinal Disorders: Yes (GALLSTONES) Genitourinary: Yes (UTERINE FIBROID TUMORS) Herniated Disk: Yes (LUMBAR) Immune Disorder: Yes Musculoskeletal: Yes (T11 COMPRESSION FX: DX IN NOV, 2015) Neurologic: Yes Psychiatric: Yes (PTSD, SUICIDAL IDEATION: LAST EPISODE: SEPTEMBER 2015) Reproductive: Yes Respiratory: Yes Migraines: Yes Pneumonia: Yes Ulcer: Yes (PUD) Tetanus Vaccination: > 5 Years Influenza Vaccination: No Menopausal: Yes : 1 Para: 1 Ovarian Cysts: Yes Past Surgical History Oral Surgery: Yes Tonsillectomy: Yes Other Surgery: Yes Social History Alcohol Use: No Tobacco Use: No (5 cigs a day) Substance Use: No Allergies-Medications (Allergen,Severity, Reaction): Coded Allergies: Benadryl (Verified Allergy, Severe, Tachycardia, 05/30/16) "MAKES ME FEEL LIKE I TOOK AN AMPHETAMINE" Clindamycin (Verified Allergy, Intermediate, Rash, 05/30/16) Atrovent (Verified Allergy, Unknown, 05/30/16) Uncoded Allergies: STEROIDS (Allergy, Severe, Dizziness, 04/06/16) "STEROIDS MAKE MY BLOOD PRESSURE ELEVATED AND MAKES ME DIZZY" Reported Meds & Prescriptions Reported Meds & Active Scripts Active Reported Lisinopril 20 Mg Tab 20 Mg PO DAILY Ventolin Hfa 18 GM Inh (Albuterol Sulfate) 90 Mcg/Act Aer 2 Puff INH Q4H PRN Review of Systems Except as stated in HPI: all other systems reviewed are Neg Physical Exam Narrative GENERAL: The patient is alert, oriented 3 and minimal respiratory distress. When I encountered her, the patient was sleeping comfortably. SKIN: Focused skin assessment warm/dry. HEAD: Atraumatic. Normocephalic. EYES: Pupils equal and round. No scleral icterus. No injection or drainage. ENT: No nasal bleeding or discharge. Mucous membranes pink and moist. NECK: Trachea midline. No JVD. CARDIOVASCULAR: Regular rate and rhythm. No murmur appreciated. RESPIRATORY: No accessory muscle use. Scattered wheezes were heard bilaterally widely scattered. Breath sounds equal bilaterally. GASTROINTESTINAL: Abdomen soft, non-tender, nondistended. Hepatic and splenic margins not palpable. MUSCULOSKELETAL: No obvious deformities. No clubbing. No cyanosis. No edema. NEUROLOGICAL: Awake and alert. No obvious cranial nerve deficits. Motor grossly within normal limits. Normal speech. PSYCHIATRIC: Appropriate mood and affect; insight and judgment normal. Data Data Last Documented VS Vital Signs Date Time Temp Pulse Resp B/P Pulse Ox O2 Delivery O2 Flow Rate FiO2 05/30/16 06:06 94 Nasal Cannula 2 05/30/16 06:06 103 20 155/71 05/30/16 02:20 97.9 Orders Complete Blood Count With Diff (05/30/16 04:32) Basic Metabolic Panel (Bmp) (05/30/16 04:32) Influenzae A/B Antigen (05/30/16 04:32) Iv Access Insert/Monitor (05/30/16 04:32) Ecg Monitoring (05/30/16 04:32) Oximetry (05/30/16 04:32) Oxygen Administration (05/30/16 04:32) Chest, Pa & Lat (05/30/16 04:32) Sodium Chloride 0.9% Flush (Ns Flush) (05/30/16 04:45) Methylprednisolone So Succ Inj (Solumedr (05/30/16 04:45) Albuterol Neb (Albuterol Neb) (05/30/16 04:45) Budesonide Neb (Pulmicort Respule Neb) (05/30/16 04:45) Arterial Blood Gas (Abg) (05/30/16 ) Labs Laboratory Tests Test 05/30/16 05/30/16 04:15 05:02 White Blood Count 5.3 TH/MM3 Red Blood Count 4.67 MIL/MM3 Hemoglobin 13.6 GM/DL Hematocrit 41.8 % Mean Corpuscular Volume 89.5 FL Mean Corpuscular Hemoglobin 29.2 PG Mean Corpuscular Hemoglobin 32.6 % Concent Red Cell Distribution Width 14.1 % Platelet Count 152 TH/MM3 Mean Platelet Volume 9.2 FL Neutrophils (%) (Auto) 63.4 % Lymphocytes (%) (Auto) 15.0 % Monocytes (%) (Auto) 12.2 % Eosinophils (%) (Auto) 8.1 % Basophils (%) (Auto) 1.3 % Neutrophils # (Auto) 3.4 TH/MM3 Lymphocytes # (Auto) 0.8 TH/MM3 Monocytes # (Auto) 0.6 TH/MM3 Eosinophils # (Auto) 0.4 TH/MM3 Basophils # (Auto) 0.1 TH/MM3 CBC Comment DIFF FINAL Differential Comment Sodium Level 142 MEQ/L Potassium Level 3.8 MEQ/L Chloride Level 102 MEQ/L Carbon Dioxide Level 32.6 MEQ/L Anion Gap 7 MEQ/L Blood Urea Nitrogen 10 MG/DL Creatinine 0.46 MG/DL Estimat Glomerular Filtration 138 ML/MIN Rate Random Glucose 105 MG/DL Calcium Level 8.7 MG/DL Blood Gas Puncture Site RT RADIAL Blood Gas Patient Temperature 98.6 Blood Gas HCO3 32 mmol/L Blood Gas Base Excess 6.4 mmol/L Blood Gas Oxygen Saturation 75 % Arterial Blood pH 7.33 Arterial Blood Partial 63 mmHG Pressure CO2 Arterial Blood Partial 50 mmHG Pressure O2 Arterial Blood Oxygen Content 13.3 Vol % Arterial Blood 5.3 % Carboxyhemoglobin Arterial Blood Methemoglobin 1.2 % Blood Gas Hemoglobin 12.7 G/DL Blood Gas Liter Flow 21 L/M [facility] Medical Decision Making Medical Screen Exam Complete: Yes Emergency Medical Condition: Yes Medical Record Reviewed: Yes Interpretation(s) The chest x-ray shows no acute change. The blood gases on room air show pH 7.33 , CO2 63, PO2 50 with O2 sat 75% and the carboxyhemoglobin level is 5.3. The basic metabolic profile is normal except for a bicarbonate of 32.6. The CBC shows a white count of 5300 and is otherwise normal. Differential Diagnosis COPD with acute exacerbation, hypoxemia, pneumonia, electrolyte disorder, tobacco abuse Narrative Course The patient has COPD with acute exacerbation and hypoxemia. Her blood gases show she is a retainer with CO2 of 63. Physician Communication Physician Communication I discussed the patient with Dr. Mathews, the patient will be admitted to him. Diagnosis Primary Impression: COPD with acute exacerbation Additional Impressions: Hypoxemia CO2 retention Tobacco abuse Admitting Information Admitting Physician Requests: Admit Lyle Cano MD May 30, 2016 04:27
[2016-05-30] MEDS ORDERED: RESP: BUDESONIDE 0.5 MG/2 ML NEB NEB ONE (04:45)
[2016-05-30] MEDS ORDERED: methylPREDNISolone SOD SUCC 125 MG/2 ML VIAL IVP ONE (04:45)
[2016-05-30] MEDS ORDERED: SODIUM CHLORIDE 0.9% FLUSH 10 ML FLUSH IVF PRN (04:45)
[2016-05-30] MEDS: RESP: ALBUTEROL 2.5 MG/3 ML NEB (SCH) INH (04:48)
[2016-05-30 05:05] LABS: AUTOMATED NEUTROPHIL # 3.4 TH/MM3 (1.8-7.7); BASOPHIL # 0.1 TH/MM3 (0-0.2); BASOPHIL % 1.3 % (0.0-2.0); EOSINOPHIL # 0.4 TH/MM3 (0-0.4); EOSINOPHIL % 8.1 % (0.0-4.0); HEMATOCRIT 41.8 % (35.0-46.0); HEMO FLAGS DIFF FINAL; LYMPHOCYTE # 0.8 TH/MM3 (1.0-4.8); MEAN CELL VOLUME 89.5 FL (80.0-100.0); MEAN CORPUSCULAR HEMOGLOBIN 29.2 PG (27.0-34.0); MEAN CORPUSCULAR HGB CONC 32.6 % (32.0-36.0); MONO % 12.2 % (0.0-8.0); NEUT % 63.4 % (16.0-70.0); PLATELET COUNT 152 TH/MM3 (150-450); RED BLOOD COUNT 4.67 MIL/MM3 (4.00-5.30); RED CELL DISTRIBUTION WIDTH 14.1 % (11.6-17.2); WHITE BLOOD COUNT 5.3 TH/MM3 (4.0-11.0)
[2016-05-30 05:12] LABS: BLOOD GAS BASE EXCESS 6.4 mmol/L (-2-2); BLOOD GAS CARBOXYHEMOGLOBIN 5.3 % (0-4); BLOOD GAS HCO3 32 mmol/L (22-26); BLOOD GAS METHEMOGLOBIN 1.2 % (0-2); BLOOD GAS O2 HGB SATURATION 75 % (90-100); BLOOD GAS OXYGEN CONTENT 13.3 Vol % (12.0-20.0); BLOOD GAS PCO2 63 mmHG (38-42); BLOOD GAS PO2 50 mmHG (61-120); BLOOD GAS TOTAL HGB 12.7 G/DL (12.0-16.0); CRITICAL VALUE YES; DRAW SITE RT RADIAL; LITER FLOW 21 L/M; NUMBER OF ARTERIAL PUNCTURES 1; STAT YES; TEMP CORR TO 98.6; ULNAR PULSE Y
[2016-05-30 05:14] LABS: POTASSIUM 3.8 MEQ/L (3.5-5.1)
[2016-05-30 05:17] LABS: BICARBONATE 32.6 MEQ/L (21.0-32.0)
--- NOTE | 2016-05-30 06:23 | RADHPO ---
EXAM DATE/TIME: 05/30/2016 05:39 [facility] COMPARISON: CHEST SINGLE AP, May 08, 2016, 22:36. INDICATIONS : Shortness of breath. MEDICAL HISTORY : Chronic obstructive pulmonary disease. Emphysema. Diverticulitis. Fibromyalgia. SURGICAL HISTORY : Tonsillectomy. ENCOUNTER: Initial ACUITY: 1 day PAIN SCORE: Non-responsive. LOCATION: Bilateral chest FINDINGS: There is no focal consolidation. Lungs are hyperinflated. No effusion. Heart size upper limits normal . Atherosclerotic and tortuous aorta. CONCLUSION: 1. No active disease. Mild hyperinflation. Wilian Godfrey MD on May 30, 2016 at 6:19 Board Certified Radiologist. This report was verified electronically.
[2016-05-30] MEDS ORDERED: NALOXONE HCL 0.4 MG/ML AMP IV PRN (06:30)
[2016-05-30] MEDS ORDERED: SODIUM CHLORIDE 0.9% FLUSH 10 ML FLUSH IV FLUSH PRN (06:30)
[2016-05-30] MEDS: RESP: ALBUTEROL 2.5 MG/3 ML NEB (PRN) NEB ×4 (07:44→20:32)
[2016-05-30] MEDS: RESP: BUDESONIDE 0.5 MG/2 ML NEB NEB SCH ×2 (07:44→20:32)
[2016-05-30] MEDS: SODIUM CHLORIDE 0.9% FLUSH 10 ML FLUSH IV FLUSH SCH ×2 (09:00→21:00)
[2016-05-30] MEDS: HEPARIN SODIUM - SQ 10,000 UNITS/ML VIAL SQ SCH ×2 (11:00→21:00)
--- NOTE | 2016-05-30 11:20 | HHI.HP ---
HPI Service [facility] Hospitalists Primary Care Physician No Primary Care Physician Admission Diagnosis COPD with acute exacerbation, hypoxemia, tobacco abuse, CO2 retentio Diagnoses: (1) COPD with acute exacerbation (2) Hypoxemia Chief Complaint: Dyspnea Travel History International Travel<30 Days: No Contact w/Intl Traveler <30 Da: No Traveled to Known Affected Are: No History of Present Illness The patient is a 60-year-old female with history of COPD who presented to the emergency department with complaint of shortness of breath. She reports 2 recent hospitalizations, a few days ago at [facility] in [facility], and a couple weeks ago at [facility] in [place]. She states that these hospitalizations were for respiratory issues as well. She was hospitalized earlier this month here at [facility] for COPD exacerbation requiring intubation. Once she was extubated, she left AGAINST MEDICAL ADVICE. She states for the last 2 or 3 days she has been having worsening shortness of breath. She has developed cough that is now productive of greenish sputum. Denies fever, chills , night sweats. She does not want to take antibiotics. She reports allergy to ipratropium and steroids. She had mild chest pain, but that has resolved. The patient is a poor historian. The history provided is often tangential. She states that she has lower extremity edema because of the high-shine [place] that is on the floors of the hospital. She notes that during a previous hospitalization a CT of the chest showed aortic calcification, which she attributes to drinking Frappacinos from [employer]. Review of Systems ROS Limitations: Poor Historian Constitutional: DENIES: Fever, Chills, Night Sweats Eyes: DENIES: Blurred vision, Vision loss Ears, nose, mouth, throat: DENIES: Hearing loss Respiratory: COMPLAINS OF: Cough, Wheezing, Sputum production, Shortness of breath Cardiovascular: COMPLAINS OF: Dyspnea on Exertion, Lower Extremity Edema, DENIES: Chest pain, Palpitations Gastrointestinal: DENIES: Abdominal pain, Constipation, Diarrhea, Nausea, Vomiting Genitourinary: DENIES: Urinary frequency, Urinary incontinence, Urgency, Hematuria, Dysuria, Nocturia Musculoskeletal: DENIES: Joint pain, Muscle aches Integumentary: DENIES: Pruritus, Rash Hematologic/lymphatic: DENIES: Bruising Neurologic: DENIES: Headache Past Family Social History Past Medical History COPD Asthma Anxiety/depression History of diverticulitis Fibromyalgia Uterine fibroids Lumbar disc herniation History of thoracic compression fracture PTSD History of migraine headaches History of peptic ulcer disease Past Surgical History Tonsillectomy Reported Medications Lisinopril 20 Mg Tab 20 Mg PO DAILY Ventolin Hfa 18 GM Inh (Albuterol Sulfate) 90 Mcg/Act Aer 2 Puff INH Q4H PRN Allergies: Coded Allergies: Benadryl (Verified Allergy, Severe, Tachycardia, 05/30/16) "MAKES ME FEEL LIKE I TOOK AN AMPHETAMINE" Clindamycin (Verified Allergy, Intermediate, Rash, 05/30/16) Atrovent (Verified Allergy, Unknown, 05/30/16) Uncoded Allergies: STEROIDS (Allergy, Severe, Dizziness, 04/06/16) "STEROIDS MAKE MY BLOOD PRESSURE ELEVATED AND MAKES ME DIZZY" Family History She denies significant family history. Social History She smokes about 5 cigarettes a day. She states that she is a recovering alcoholic and stopped drinking about 5 years ago. Denies illicit drug use. Physical Exam Vital Signs Vital Signs Date Time Temp Pulse Resp B/P Pulse Ox O2 Delivery O2 Flow Rate FiO2 05/30/16 09:15 97.8 92 20 125/66 93 05/30/16 08:45 98.1 102 16 119/68 94 Nasal Cannula 3 05/30/16 07:47 94 Nasal Cannula 4.00 05/30/16 07:45 98 17 92 Nasal Cannula 3 05/30/16 07:45 99 17 162/70 92 Nasal Cannula 3 05/30/16 06:06 94 Nasal Cannula 2 05/30/16 06:06 103 20 155/71 94 Nasal Cannula 2 05/30/16 05:52 96 Nasal Cannula 3 05/30/16 05:52 97 Nasal Cannula 3 05/30/16 05:40 102 20 162/72 82 Room Air 05/30/16 05:12 96 Nasal Cannula 3.00 05/30/16 05:00 80 Room Air 05/30/16 05:00 82 Nasal Cannula 2 05/30/16 04:55 100 20 167/72 81 Room Air 05/30/16 03:47 97 Room Air 05/30/16 02:20 97.9 86 18 137/82 96 Physical Exam GENERAL: Well-nourished, well-developed female in no acute distress. HEENT: Normocephalic, atraumatic. Pupils equal, round and reactive. Extraocular movements intact. No scleral icterus. No injection or drainage. Oropharynx is clear. Mucous membranes are moist. CARDIOVASCULAR: Regular rate and rhythm without murmurs, gallops, or rubs. RESPIRATORY: Scattered wheeze. Breathing is non-labored. GASTROINTESTINAL: Abdomen soft, non-tender, nondistended. EXTREMITIES: 2+ bilateral lower extremity edema. Venous stasis changes noted bilaterally. No calf tenderness. PSYCH: Alert and oriented x 3. Laboratory Laboratory Tests Test 05/30/16 05/30/16 04:15 05:02 White Blood Count 5.3 Red Blood Count 4.67 Hemoglobin 13.6 Hematocrit 41.8 Mean Corpuscular Volume 89.5 Mean Corpuscular Hemoglobin 29.2 Mean Corpuscular Hemoglobin 32.6 Concent Red Cell Distribution Width 14.1 Platelet Count 152 Mean Platelet Volume 9.2 Neutrophils (%) (Auto) 63.4 Lymphocytes (%) (Auto) 15.0 Monocytes (%) (Auto) 12.2 Eosinophils (%) (Auto) 8.1 Basophils (%) (Auto) 1.3 Neutrophils # (Auto) 3.4 Lymphocytes # (Auto) 0.8 Monocytes # (Auto) 0.6 Eosinophils # (Auto) 0.4 Basophils # (Auto) 0.1 CBC Comment DIFF FINAL Differential Comment Sodium Level 142 Potassium Level 3.8 Chloride Level 102 Carbon Dioxide Level 32.6 Anion Gap 7 Blood Urea Nitrogen 10 Creatinine 0.46 Estimat Glomerular Filtration 138 Rate Random Glucose 105 Calcium Level 8.7 Blood Gas Puncture Site RT RADIAL Blood Gas Patient Temperature 98.6 Blood Gas HCO3 32 Blood Gas Base Excess 6.4 Blood Gas Oxygen Saturation 75 Arterial Blood pH 7.33 Arterial Blood Partial 63 Pressure CO2 Arterial Blood Partial 50 Pressure O2 Arterial Blood Oxygen Content 13.3 Arterial Blood 5.3 Carboxyhemoglobin Arterial Blood Methemoglobin 1.2 Blood Gas Hemoglobin 12.7 Blood Gas Liter Flow 21 Date/Time Procedure Status Source Growth 05/30/16 04:15 Influenza Types A,B Antigen (MOHSEN) - Final Complete Nasal Aspirate NEGATIVE FOR FLU A AND B ANTIGEN.... Result Diagram: 05/30/16 0415 05/30/16 0415 Imaging Last Impressions Chest X-Ray 05/30/16 0432 Signed Impressions: Service Date/Time: Monday, May 30, 2016 05:39 - CONCLUSION: 1. No active disease. Mild hyperinflation. Wilian Godfrey MD Assessment and Plan Assessment and Plan 1. COPD exacerbation: Continue supplemental oxygen. Continue albuterol. Patient reports allergy to ipratropium. She also refuses steroids, stating that they cause BP elevation and dizziness. The patient states that she wants to avoid taking antibiotics. 2. Hypertension: Continue lisinopril. 3. DVT prophylaxis: Heparin. Tom Lee MD May 30, 2016 11:20
[2016-05-31] VITALS: BP 117/79; PULSE 94; RESP 20; TEMP 97.6; O2SAT 95
[2016-05-31 06:57] LABS: AUTOMATED NEUTROPHIL # 3.4 TH/MM3 (1.8-7.7); BASOPHIL # 0.1 TH/MM3 (0-0.2); EOSINOPHIL # 0.2 TH/MM3 (0-0.4); HEMATOCRIT 37.3 % (35.0-46.0); HEMO FLAGS DIFF FINAL; LYMPH % 17.1 % (9.0-44.0); LYMPHOCYTE # 0.9 TH/MM3 (1.0-4.8); MEAN CELL VOLUME 90.9 FL (80.0-100.0); MEAN CORPUSCULAR HEMOGLOBIN 29.3 PG (27.0-34.0); MEAN CORPUSCULAR HGB CONC 32.3 % (32.0-36.0); MONO % 13.9 % (0.0-8.0); PLATELET COUNT 137 TH/MM3 (150-450); RED BLOOD COUNT 4.11 MIL/MM3 (4.00-5.30); WHITE BLOOD COUNT 5.3 TH/MM3 (4.0-11.0)
[2016-05-31 07:06] LABS: CHLORIDE 105 MEQ/L (98-107); POTASSIUM 3.6 MEQ/L (3.5-5.1); SODIUM (NA) 144 MEQ/L (136-145)
[2016-05-31 07:10] LABS: ANION GAP 9 MEQ/L (5-15); BICARBONATE 30.4 MEQ/L (21.0-32.0)
[2016-05-31 07:11] LABS: BLOOD UREA NITROGEN 16 MG/DL (7-18)
[2016-05-31 07:13] LABS: ALT (GPT) 28 U/L (10-53)
[2016-05-31 07:14] LABS: AST (GOT) 8 U/L (15-37); GLOMERULAR FILTRATION RATE 110 ML/MIN (>89)
[2016-05-31 07:15] LABS: TOTAL BILIRUBIN ADULT 0.4 MG/DL (0.2-1.0)
[2016-05-31 07:16] LABS: ALKALINE PHOSPHATASE 63 U/L (45-117)
[2016-05-31 08:00] VITALS: BP 157/79; PULSE 82; RESP 18; TEMP 96.7; O2SAT 97
[2016-05-31] MEDS: RESP: ALBUTEROL 2.5 MG/3 ML NEB (PRN) NEB ×2 (08:04→12:20)
[2016-05-31] MEDS: RESP: BUDESONIDE 0.5 MG/2 ML NEB NEB SCH (08:04)
[2016-05-31 08:06] VITALS: O2SAT 94
[2016-05-31] MEDS: HEPARIN SODIUM - SQ 10,000 UNITS/ML VIAL SQ SCH (09:00)
[2016-05-31] MEDS: SODIUM CHLORIDE 0.9% FLUSH 10 ML FLUSH IV FLUSH SCH (09:00)
[2016-05-31] MEDS ORDERED: PNEUMOCOCCAL POLYVALENT INJ 25 MCG/0.5 ML SYR IM ONE (10:00)
--- NOTE | 2016-05-31 11:56 | HHI.PR ---
Subjective Remarks Difficult to get history from the patient. She states she feels worse than yesterday with increased congestion. Yesterday the patient did not want antibiotics however today she states she wants antibiotics for the congestion however she states that Levaquin and Zithromax don't work well for her because she is taking them so much in the past for sinusitis. The patient states that she was recently in [facility] and diagnosed with rhinovirus. She was not prescribed antibiotics at that time. The patient is afraid that she will get sick. The patient states that her main problem is her living situation. She rents a room from a house and she states that the people there use IV drugs. The patient also states that she does not have a nebulizer and left it in [place] about 6 months ago. The patient refuses to take steroids. The patient is noted to have pedal edema with chronic venous stasis changes. She states that her legs only look red because of the toxins that the hospital uses to clean the floor. Per her nurse she has been walking around the halls without oxygen occasionally peering and other patient's rooms. Objective Vitals Vital Signs Date Time Temp Pulse Resp B/P Pulse Ox O2 Delivery O2 Flow Rate FiO2 05/31/16 08:06 94 21 05/31/16 08:00 96.7 82 18 157/79 97 05/31/16 00:00 97.6 94 20 117/79 95 05/30/16 20:32 96 21 05/30/16 20:00 97.9 86 20 160/79 95 05/30/16 12:00 98.4 87 20 138/70 93 I/O 05/30/16 05/30/16 05/30/16 05/31/16 05/31/16 05/31/16 07:00 15:00 23:00 07:00 15:00 23:00 Intake Total 1480 ml 240 ml 480 ml Balance 1480 ml 240 ml 480 ml Intake Oral 1480 ml 240 ml 480 ml # Voids 8 2 2 # Bowel Movements 8 0 0 Result Diagram: 05/31/1651905/31/16 0520 Objective Remarks GENERAL: Well-nourished, well-developed patient. SKIN: Warm and dry. HEAD: Normocephalic. EYES: No scleral icterus. No injection or drainage. NECK: Supple, trachea midline. No JVD or lymphadenopathy. CARDIOVASCULAR: Regular rate and rhythm without murmurs, gallops, or rubs. RESPIRATORY: Breath sounds equal and clear to auscultation bilaterally. No accessory muscle use on room air. GASTROINTESTINAL: Abdomen soft, non-tender, nondistended. EXTREMITIES: 2+ chronic edema bilateral lower extremities with some erythema of bilateral lower extremities. NEUROLOGICAL: Awake, alert, and oriented x 3. Non-focal. Psychiatric: The patient is somewhat tangential in her thinking in her ideas and is tearful at times. She is guarded and suspicious. Argumentative. A/P Problem List: (1) COPD with acute exacerbation ICD Code: J44.1 Status: Acute (2) Hypoxemia ICD Code: R09.02 Status: Acute Assessment and Plan -Mild COPD exacerbation. The patient has declined steroids. She appears so greatly improved overnight. She is ambulating around the hallways without oxygen. On exam her lungs are clear with good air exchange. I will check an oxygen walk test. Also repeat an ABG as she appears to have chronic CO2 retention. It appears she was on the ventilator for 2 days earlier this month and left AGAINST MEDICAL ADVICE today she was extubated. She does not have a primary care physician but does have Medicare. I offered to have our case preparer and liner provide her with a list of primary care physicians and get her an appointment, however the patient declines this. The patient today also wants antibiotics for nasal congestion. I explained to the patient that she does not have any evidence of infection on chest x-ray. The patient gets argumentative and tells me if I will not prescribe antibiotics she will find another provider who will. Apparently the patient has also lost her nebulizer in [place]. I will ask the case preparer and liner to see if we can get her another one, if Medicare will cover that. Clinically she looks pretty good. I will check a walk test and ABG and if those look improved she may be discharged home. -Poor social situation. Consult case management. -Chronic pedal edema with venous stasis dermatitis, possible early cellulitis. I will start treatment with ceftin. Patient believes the problem is caused by the floor director of public safety used at this hospital. Patient provided education about celia cordone, leg elevation. Kassie Servin MD May 31, 2016 11:56
[2016-05-31 12:00] VITALS: BP 138/74; PULSE 81; RESP 18; TEMP 97.7; O2SAT 93
[2016-05-31] MEDS ORDERED: CEFUROXIME AXETIL 500 MG TAB PO SCH (12:00)
[2016-05-31] MEDS ORDERED: ALBU0.08 NEB (12:50)
[2016-05-31] MEDS ORDERED: NEBULIZER1 MI1 (12:50)
[2016-05-31] MEDS ORDERED: MUCI600T PO (12:50)
[2016-05-31] MEDS ORDERED: CEFT500T3 PO (12:50)
[2016-05-31] MEDS ORDERED: VENTAER INH (12:50)
--- NOTE | 2016-05-31 13:49 | HHI.FF ---
Face to Face Verification Diagnosis: (1) COPD exacerbation (2) CO2 retention (3) Peripheral edema (4) Venous stasis dermatitis of both lower extremities Home Health Nursing Order: Medical education Signs/symptoms of disease process Instructions: celia mena patient to wear daily Crime Scene Investigator Order: To Evaluate: Living conditions/environment, Support services Order: To Provide: Community services I have seen patient Noelle Swartz on 05/31/16. My clinical findings support the need for the requested home health care services because: Patient has SOB Med compliance is questionable Need for psychosocial assistance I certify that my clinical findings support that this patient is homebound because: Hx COPD- exertion dyspnea/weakness Need for psychosocial assistance Kassie Servin MD May 31, 2016 13:49
[2016-05-31 14:46] LABS: BLOOD GAS BASE EXCESS 5.2 mmol/L (-2-2); BLOOD GAS CARBOXYHEMOGLOBIN 2.4 % (0-4); BLOOD GAS HCO3 30 mmol/L (22-26); BLOOD GAS METHEMOGLOBIN 0.9 % (0-2); BLOOD GAS O2 HGB SATURATION 90 % (90-100); BLOOD GAS OXYGEN CONTENT 15.3 Vol % (12.0-20.0); BLOOD GAS PCO2 52 mmHG (38-42); BLOOD GAS PO2 69 mmHG (61-120); BLOOD GAS TOTAL HGB 12.1 G/DL (12.0-16.0); CRITICAL VALUE YES; DRAW SITE LT RADIAL; FIO2 21 %; NUMBER OF ARTERIAL PUNCTURES 1; OXYGEN DEVICE ROOM AIR; STAT NO; TEMP CORR TO 98.6; ULNAR PULSE PRESENT
[2016-05-31 16:00] VITALS: BP 133/78; PULSE 82; RESP 18; TEMP 97.4; O2SAT 96
[2016-05-31] MEDS ORDERED: ALBUTEROL SULFATE 90 MCG/ACT HFA 8 GM INHALER INH PRN (18:15)
== END 2016-05-31 18:32 | disposition home or self-care (01) | DRG 191 ==
LOC: PHED 02:07 → INTOOBSV 06:21 → PHEDA 06:21 → PH3A 09:16 → OBSVTOIN 11:09
PROVIDERS: ADMIT Family Medicine; ATTEND Family Medicine
DX: J44.1 Chronic obstructive pulmonary disease with (acute) exacerbation (principal); L03.116 Cellulitis of left lower limb; L03.115 Cellulitis of right lower limb; I10 Essential (primary) hypertension; F17.210 Nicotine dependence, cigarettes, uncomplicated; M79.7 Fibromyalgia; F43.10 Post-traumatic stress disorder, unspecified; G43.909 Migraine, unspecified, not intractable, without status migrainosus; I87.8 Other specified disorders of veins
CPT/HCPCS: 36600; 71020; 80048; 80053; 82805; 85025; 87804; 94640; 94664; 96374; J2930; J7613; J7626

== ENCOUNTER 2016-06-06 00:51 | Inpatient (IN) | payer MEDICARE, OTHER ==
[2016-06-06] VITALS (28 sets, daily range): BP systolic 98–161; BP diastolic 45–81; PULSE 75–108; RESP 16–35; TEMP 97.8–99.2; O2SAT 82–99
[~2016-06-06] VITALS: Ht 180.3 cm; Wt 95.0 kg
[~2016-06-06 00:51] MED LIST changes: +ALBU0.08 NEB; -BACT800T5 PO; +CEFT500T3 PO; -CEPH-460 PO; +MUCI600T PO; -NAPR500 PO; +NEBULIZER1 MI1
[2016-06-06] MEDS ORDERED: guaiFENesin SOLUTION 200 MG/10 ML CUP PO ONE (01:15)
[2016-06-06] MEDS ORDERED: SODIUM CHLORIDE 0.9% FLUSH 10 ML FLUSH IVF PRN (01:15)
[2016-06-06] MEDS ORDERED: RESP: ALBUTEROL 1.25 MG/3 ML NEB (SCH) NEB ONE ×2 (01:15)
--- NOTE | 2016-06-06 01:24 | RADHPO ---
EXAM DATE/TIME: 06/06/2016 01:12 [facility] COMPARISON: CHEST SINGLE AP, April 27, 2016, 5:03. CHEST SINGLE AP, May 08, 2016, 22:36. INDICATIONS : Shortness of breath. MEDICAL HISTORY : Chronic obstructive pulmonary disease. Emphysema. Diverticulitis. Fibromyalgia. SURGICAL HISTORY : Tonsillectomy. ENCOUNTER: Initial ACUITY: 1 day PAIN SCORE: 0/10 LOCATION: Bilateral chest FINDINGS: A single view of the chest demonstrates the lungs to be symmetrically aerated without evidence of mas s, infiltrate or effusion. The cardiomediastinal contours are unremarkable. Osseous structures are intact. CONCLUSION: No acute disease. Yanick Zarate Jr., MD on June 06, 2016 at 1:22 Board Certified Radiologist. This report was verified electronically.
[2016-06-06 01:50] LABS: BLOOD GAS BASE EXCESS 9.5 mmol/L (-2-2); BLOOD GAS CARBOXYHEMOGLOBIN 3.7 % (0-4); BLOOD GAS HCO3 36 mmol/L (22-26); BLOOD GAS METHEMOGLOBIN 1.1 % (0-2); BLOOD GAS O2 HGB SATURATION 66 % (90-100); BLOOD GAS OXYGEN CONTENT 12.4 Vol % (12.0-20.0); BLOOD GAS PCO2 78 mmHG (38-42); BLOOD GAS PO2 43 mmHG (61-120); BLOOD GAS TOTAL HGB 13.3 G/DL (12.0-16.0); TEMP CORR TO 98.6
[2016-06-06 01:51] LABS: CRITICAL VALUE YES; DRAW SITE RT RADIAL; FIO2 21 %; NUMBER OF ARTERIAL PUNCTURES 1; OXYGEN DEVICE ROOM AIR; STAT YES; ULNAR PULSE PRESENT
[2016-06-06 01:52] LABS: BASOPHIL # 0.3 TH/MM3 (0-0.2); BASOPHIL % 3.5 % (0.0-2.0); EOSINOPHIL # 0.4 TH/MM3 (0-0.4); EOSINOPHIL % 5.1 % (0.0-4.0); HEMATOCRIT 41.8 % (35.0-46.0); HEMO FLAGS DIFF FINAL; LYMPH % 14.6 % (9.0-44.0); LYMPHOCYTE # 1.1 TH/MM3 (1.0-4.8); MEAN CELL VOLUME 89.9 FL (80.0-100.0); MEAN CORPUSCULAR HEMOGLOBIN 29.5 PG (27.0-34.0); MEAN CORPUSCULAR HGB CONC 32.8 % (32.0-36.0); MONO % 8.7 % (0.0-8.0); NEUT % 68.1 % (16.0-70.0); PLATELET COUNT 169 TH/MM3 (150-450); RED BLOOD COUNT 4.64 MIL/MM3 (4.00-5.30); RED CELL DISTRIBUTION WIDTH 14.5 % (11.6-17.2); WHITE BLOOD COUNT 7.4 TH/MM3 (4.0-11.0)
[2016-06-06 02:29] LABS: CHLORIDE 102 MEQ/L (98-107); POTASSIUM 3.7 MEQ/L (3.5-5.1); SODIUM (NA) 144 MEQ/L (136-145)
[2016-06-06 02:32] LABS: ANION GAP 5 MEQ/L (5-15); BICARBONATE 36.6 MEQ/L (21.0-32.0); BLOOD UREA NITROGEN 8 MG/DL (7-18)
[2016-06-06 02:35] LABS: GLOMERULAR FILTRATION RATE 108 ML/MIN (>89)
[2016-06-06] MEDS ORDERED: SODIUM CHLOR 0.9% 1000 ML INJ 1,000 ML IV SCH (03:13)
[2016-06-06] MEDS ORDERED: ACETAMINOPHEN 325 MG TAB PO PRN (03:15)
[2016-06-06] MEDS ORDERED: SODIUM CHLORIDE 0.9% FLUSH 10 ML FLUSH PRN (03:15)
[2016-06-06] MEDS ORDERED: ACETAMINOPHEN/HYDROcodone 325 MG/5 MG TAB PO PRN (03:15)
[2016-06-06] MEDS ORDERED: MISCELLANEOUS NURSING INFORMATION XX SCH (03:15)
[2016-06-06] MEDS ORDERED: RESP: ALBUTEROL 2.5 MG/IPRATROPIUM 0.5 MG NEB (PRN) INH ×2 (03:15→08:00)
[2016-06-06] MEDS ORDERED: MORPHINE SULFATE 4 MG/ML INJ IV PRN (03:15)
[2016-06-06] MEDS ORDERED: CHLORHEXIDINE GLUCONATE 2 % 1 PACK (2 CLOTHS) TOP PRN (03:15)
[2016-06-06] MEDS ORDERED: ACETAMINOPHEN 325 MG TAB PO ONE (03:15)
[2016-06-06] MEDS: LEVOFLOXACIN 750 MG PREMIX INJ 150 ML IV SCH (03:24)
[2016-06-06] MEDS: ENOXAPARIN SODIUM 30 MG/0.3 ML SYRINGE SQ SCH ×2 (03:45→03:47)
[2016-06-06 03:58] LABS: AMPHETAMINE, URINE NEG (NEG); BARBITURATES, URINE NEG (NEG); COCAINE, URINE NEG (NEG)
[2016-06-06] MEDS ORDERED: RESP: ALBUTEROL 2.5 MG/3 ML NEB (PRN) ONE (03:58)
[2016-06-06] MEDS ORDERED: RESP: ALBUTEROL 2.5 MG/IPRATROPIUM 0.5 MG NEB (SCH) NEB ×2 (04:00→08:00)
[2016-06-06] MEDS: CHLORHEXIDINE GLUCONATE 2 % 1 PACK (2 CLOTHS) TOP SCH (04:00)
--- NOTE | 2016-06-06 04:34 | PD ---
HPI Chief Complaint: Respiratory Symptoms Time Seen by Provider: 00:55 Travel History International Travel<30 days: No Contact w/Intl Traveler<30days: No Traveled to known affect area: No History of Present Illness HPI Patient is 60-year-old female with multiple presentations to this and other hospitals for shortness of breath and upper respiratory symptoms over the past few months. Patient apparently recently relocated to [place] from more [facility] areas. Patient is unable to clarify why she had this move. She initially thought she was going to move an apartment on her own but ultimately ended up moving in with some individuals that she does not along with. I have suspicions that she has been spending some time on the streets. Patient states since the weather has been starting to warm up and change she thinks that her allergies are playing a part into her symptoms. She is not established a primary care provider since moving to the [place] area. Denies any fever denies any production of sputum. She's been evaluated by the records multiple times and multiple admits multiple CAT scans in his left AGAINST MEDICAL ADVICE multiple times. On her last admission she was provided a prescription for a nebulizer machine but states she cannot fill this because been too early since she had One Previously. Tonight the patient apparently was at a convenience store when she became short of breath and called 911. Her initial room air saturation. EMS was 82. She was given breathing treatments in route to the emergency department. On arrival she is speaking in full sentences is mildly tachypneic. PFSH Past Medical History Asthma: Yes Anxiety: Yes Depression: Yes Cardiovascular Problems: Yes COPD: Yes Diminished Hearing: No Diverticulitis: Yes Endocrine: No Fibromyalgia: Yes Gastrointestinal Disorders: Yes (GALLSTONES) Genitourinary: Yes (UTERINE FIBROID TUMORS) Herniated Disk: Yes (LUMBAR) Immune Disorder: Yes Musculoskeletal: Yes (T11 COMPRESSION FX: DX IN NOV, 2015) Neurologic: Yes Psychiatric: Yes (PTSD, SUICIDAL IDEATION: LAST EPISODE: SEPTEMBER 2015) Reproductive: Yes Respiratory: Yes Migraines: Yes Pneumonia: Yes Ulcer: Yes (PUD) Tetanus Vaccination: Unknown ?: Not Menopausal: Yes : 1 Para: 1 Ovarian Cysts: Yes Past Surgical History Oral Surgery: Yes Tonsillectomy: Yes Other Surgery: Yes Social History Alcohol Use: No Tobacco Use: No (5 cigs a day) Substance Use: No Allergies-Medications (Allergen,Severity, Reaction): Coded Allergies: Benadryl (Verified Allergy, Severe, Tachycardia, 06/06/16) "MAKES ME FEEL LIKE I TOOK AN AMPHETAMINE" Clindamycin (Verified Allergy, Intermediate, Rash, 06/06/16) Atrovent (Verified Allergy, Unknown, 06/06/16) Uncoded Allergies: STEROIDS (Allergy, Severe, Dizziness, 04/06/16) "STEROIDS MAKE MY BLOOD PRESSURE ELEVATED AND MAKES ME DIZZY" Reported Meds & Prescriptions Reported Meds & Active Scripts Active Ceftin (Cefuroxime Axetil) 500 Mg Tab 500 Mg PO Q12HR Mucinex ER 12 HR (Guaifenesin) 600 Mg Adamaris 600 Mg PO BID Nebulizer 1 Mis Mis 1 Ea .ROUTE DIRECTED Albuterol Neb (Albuterol Sulfate) 2.5 Mg/3 Ml Neb 2.5 Mg NEB Q4HR NEB PRN Ventolin Hfa 18 GM Inh (Albuterol Sulfate) 90 Mcg/Act Aer 2 Puff INH Q4H PRN Reported Lisinopril 20 Mg Tab 20 Mg PO DAILY Ventolin Hfa 18 GM Inh (Albuterol Sulfate) 90 Mcg/Act Aer 2 Puff INH Q4H PRN Review of Systems Except as stated in HPI: all other systems reviewed are Neg Physical Exam Narrative GENERAL: Well-developed, well-nourished, unkempt, smokers physique, smells of cigarette smoke. Speaking in full sentences but tachypneic. SKIN: Focused skin assessment warm/dry. Both lower extremities so skin changes consistent with chronic venous stasis. HEAD: Atraumatic. Normocephalic. EYES: Pupils equal and round. No scleral icterus. No injection or drainage. ENT: No nasal bleeding or discharge. Mucous membranes pink and moist. NECK: Trachea midline. No JVD. CARDIOVASCULAR: Tachycardia with regular rhythm.. No murmur appreciated. 2+ bilaterally equal pulses in all 4 extremities. RESPIRATORY: No accessory muscle use. Clear to auscultation. Breath sounds equal bilaterally. Mildly tachypneic. GASTROINTESTINAL: Abdomen soft, non-tender, nondistended. Hepatic and splenic margins not palpable. MUSCULOSKELETAL: No obvious deformities. No clubbing. No cyanosis. No edema. NEUROLOGICAL: Awake and alert. No obvious cranial nerve deficits. Motor grossly within normal limits. Normal speech. PSYCHIATRIC: Appropriate mood and affect; insight and judgment normal. Data Data Last Documented VS Vital Signs Date Time Temp Pulse Resp B/P Pulse Ox O2 Delivery O2 Flow Rate FiO2 06/06/16 03:04 99.2 102 20 105/48 96 BiPAP 06/06/16 01:51 30 06/06/16 01:23 2 Orders Electrocardiogram (06/06/16 01:04) Basic Metabolic Panel (Bmp) (06/06/16 01:04) Complete Blood Count With Diff (06/06/16 01:04) Troponin I (06/06/16 01:04) Ecg Monitoring (06/06/16 01:04) Bilateral Bp Monitoring (06/06/16 01:04) Iv Access Insert/Monitor (06/06/16 01:04) Oximetry (06/06/16 01:04) Oxygen Administration (06/06/16 01:04) Sodium Chloride 0.9% Flush (Ns Flush) (06/06/16 01:15) Arterial Blood Gas (Abg) (06/06/16 ) Albuterol Neb (Albuterol Neb) (06/06/16 01:15) Guaifenesin Liq (Robitussin Liq) (06/06/16 01:15) Albuterol Neb (Albuterol Neb) (06/06/16 01:15) Chest, Single Ap (06/06/16 ) Drug Screen, Random Urine (06/06/16 01:41) Alcohol (Ethanol) (06/06/16 02:10) Acetaminophen (Tylenol) (06/06/16 03:15) Admit To Inpatient (06/06/16 ) Inpatient Certification (06/06/16 ) Code Status (06/06/16 03:13) Vital Signs (Adult) NATHAN.Q1H (06/06/16 03:13) Activity Bed Rest (06/06/16 03:13) Activity Oob With Assistance PRN (06/06/16 03:13) Inverted Block Operator / Telemetry NATHAN.Q8H (06/06/16 03:13) Intake + Output NATHAN.Q8H (06/06/16 03:13) Bedside Glucose NATHAN.BGM (06/06/16 03:13) Urinary Catheter Management NATHAN.Q8H (06/06/16 03:13) Diet Npo (06/06/16 Breakfast) Sodium Chlor 0.9% 1000 Ml Inj (Ns 1000 M (06/06/16 03:13) Sodium Chloride 0.9% Flush (Ns Flush) (06/06/16 03:15) Sodium Chloride 0.9% Flush (Ns Flush) (06/06/16 09:00) Acetaminophen (Tylenol) (06/06/16 03:15) Acetamin-Hydrocod 325-5 Mg ([place] 5-325 (06/06/16 03:15) Morphine Inj (Morphine Inj) (06/06/16 03:15) Albuterol-Ipratropium Neb (Duoneb Neb) (06/06/16 04:00) Albuterol-Ipratropium Neb (Duoneb Neb) (06/06/16 03:15) Chlorhexidine 0.12% Liq (Peridex 0.12% L (06/06/16 08:00) Famotidine Inj (Pepcid Inj) (06/06/16 09:00) Complete Blood Count With Diff (06/07/16 06:00) Comprehensive Metabolic Panel (06/07/16 06:00) Creatine Kinase (Cpk) (06/06/16 03:13) Creatine Kinase (Cpk) (06/06/16 09:13) Troponin I (06/06/16 03:13) Troponin I (06/06/16 09:13) Magnesium (Mg) (06/06/16 03:13) Phosphorus (Po4) (06/06/16 03:13) Resp Pulse Oximetry (06/06/16 ) Arterial Blood Gas (Abg) (06/06/16 ) Pt Request For Service (06/06/16 03:13) Consult Pulmonology (06/06/16 ) Consult Cm-Day 5 Ltac Eval (06/06/16 ) Enoxaparin Inj (Lovenox Inj) (06/06/16 03:15) Scd Bilateral/Knee High NATHAN.BID (06/06/16 03:13) Mat Bilateral/Knee High NATHAN.QSHIFT (06/06/16 03:13) ^ Initiate Protocol (06/06/16 03:13) ^ Instruction (06/06/16 03:13) Misc Nursing Information (06/06/16 03:15) Chlorhexidine 2% Cloth (Chlorhexidine 2% (06/06/16 04:00) Chlorhexidine 2% Cloth (Chlorhexidine 2% (06/06/16 03:15) Mrsa Pcr Surveillance (06/06/16 03:13) Inpatient Certification (06/06/16 ) Levofloxacin 750 Mg Premix Inj (Levaquin (06/06/16 04:00) Admit Order (Ed Use Only) (06/06/16 ) Consult School Cook (06/06/16 ) Labs Laboratory Tests Test 06/06/16 06/06/16 06/06/16 06/06/16 01:28 01:45 02:10 02:45 Blood Gas Puncture Site RT RADIAL Blood Gas Patient Temperature 98.6 Blood Gas HCO3 36 mmol/L Blood Gas Base Excess 9.5 mmol/L Blood Gas Oxygen Saturation 66 % Arterial Blood pH 7.29 Arterial Blood Partial 78 mmHG Pressure CO2 Arterial Blood Partial 43 mmHG Pressure O2 Arterial Blood Oxygen Content 12.4 Vol % Arterial Blood 3.7 % Carboxyhemoglobin Arterial Blood Methemoglobin 1.1 % Blood Gas Hemoglobin 13.3 G/DL Oxygen Delivery Device ROOM AIR Blood Gas Inspired Oxygen 21 % White Blood Count 7.4 TH/MM3 Red Blood Count 4.64 MIL/MM3 Hemoglobin 13.7 GM/DL Hematocrit 41.8 % Mean Corpuscular Volume 89.9 FL Mean Corpuscular Hemoglobin 29.5 PG Mean Corpuscular Hemoglobin 32.8 % Concent Red Cell Distribution Width 14.5 % Platelet Count 169 TH/MM3 Mean Platelet Volume 8.6 FL Neutrophils (%) (Auto) 68.1 % Lymphocytes (%) (Auto) 14.6 % Monocytes (%) (Auto) 8.7 % Eosinophils (%) (Auto) 5.1 % Basophils (%) (Auto) 3.5 % Neutrophils # (Auto) 5.0 TH/MM3 Lymphocytes # (Auto) 1.1 TH/MM3 Monocytes # (Auto) 0.6 TH/MM3 Eosinophils # (Auto) 0.4 TH/MM3 Basophils # (Auto) 0.3 TH/MM3 CBC Comment DIFF FINAL Differential Comment Sodium Level 144 MEQ/L Potassium Level 3.7 MEQ/L Chloride Level 102 MEQ/L Carbon Dioxide Level 36.6 MEQ/L Anion Gap 5 MEQ/L Blood Urea Nitrogen 8 MG/DL Creatinine 0.57 MG/DL Estimat Glomerular Filtration 108 ML/MIN Rate Random Glucose 139 MG/DL Calcium Level 8.9 MG/DL Troponin I LESS THAN 0.02 NG/ML Ethyl Alcohol Level LESS THAN 3 MG/DL Urine Opiates Screen NEG Urine Barbiturates Screen NEG Urine Amphetamines Screen NEG Urine Benzodiazepines Screen NEG Urine Cocaine Screen NEG Urine Cannabinoids Screen NEG MDM Medical Decision Making Medical Screen Exam Complete: Yes Emergency Medical Condition: Yes Differential Diagnosis COPD exacerbation, end-stage COPD, hypoxia, hypercapnia, Narrative Course Patient was brought in by EMS, on arrival her saturations are 98%. She was transitioned to the ER stretcher and placed on 2 L nasal cannula. His cannula turned off during my history with her and she is talking in full sentences. During my conversation with her she did desaturate to 82% on room air. Her oxygen was turned back, she was given breathing treatments. ABG was obtained which shows acute on chronic respiratory acidosis with a PCO2 and axis of 70. Patient was reassessed by me and is now more somnolent. She was arousable and a GCS of 14 (Eye 3). She was started on BiPAP as clinically appropriate minimal settings. She did quite well on this and became much more alert and responsive. There may be an element of CO2 narcosis but this is very early and she's been very well on BiPAP. An EKG is reassuring, troponin negative. Patient's records reveal that she had 2 ultrasound DVT studies of lower extremities last month both of which were negative as well as CT PE study which was negative for PE the patient does have severe emphysematous changes. This point given the record review the patient may be end-stage COPD and may be hospice appropriate. She may also have indications for oxygen at home. Certainly there may be a very large social component to this patient's care. Either way she definitely has indications for admission to the hospital currently. Patient was discussed with Dr. Subramanian who requests that Is the primary with consults to manager of engineering. At this point I think she can stay here at [facility] as she has done quite well on BiPAP may be weaned very quickly in the ICU. Patient was discussed with Dr. Melendrez who will admit. Critical Care Narrative Aggregate critical care time was 35] minutes. Time to perform other separately billable procedures was not included in the critical care time. My time did not include minutes spent treating any other patients simultaneously or on activities that did not directly contribute to the patient's treatment. The services I provided to this patient were to treat and/or prevent clinically significant deterioration that could result in: , disability, organ failure I provided critical care services requiring my management, as noted below: Chart data review, documentation time, medication orders and management, vital sign assessments/reviewing monitor data, ordering and reviewing lab tests, ordering and interpreting/reviewing x-rays and diagnostic studies, care of the patient and discussion of the patient with the admitting physicians. Diagnosis Primary Impression: Acute respiratory failure with hypoxia and hypercapnia Additional Impression: COPD (chronic obstructive pulmonary disease) Admitting Information Admitting Physician Requests: Admit Condition: Stable Cj Jarrell MD Jun 06, 2016 04:34
[2016-06-06 06:27] LABS: BLOOD GAS BASE EXCESS 5.8 mmol/L (-2-2); BLOOD GAS CARBOXYHEMOGLOBIN 3.1 % (0-4); BLOOD GAS HCO3 32 mmol/L (22-26); BLOOD GAS METHEMOGLOBIN 0.7 % (0-2); BLOOD GAS O2 HGB SATURATION 86 % (90-100); BLOOD GAS OXYGEN CONTENT 14.5 Vol % (12.0-20.0); BLOOD GAS PCO2 68 mmHg (38-42); BLOOD GAS PO2 60 mmHg (61-120); CRITICAL VALUE YES; DRAW SITE RT BRACHIAL; FIO2 30 %; NUMBER OF ARTERIAL PUNCTURES 1; OXYGEN DEVICE BIPAP; STAT NO; VENT SETTINGS IPAP 12/EPAP 5
[2016-06-06] MEDS ORDERED: MAGNESIUM SULFATE 1 GM PREMIX 100 ML IV SCH (06:30)
[2016-06-06] MEDS ORDERED: RESP: ALBUTEROL 2.5 MG/3 ML NEB (PRN) NEB (06:30)
--- NOTE | 2016-06-06 06:35 | PD.CONS ---
[facility] Service Critical Care Medicine Consult Requested By Dr. Jarrell Reason for Consult hypoxia Primary Care Physician No Primary Care Physician History of Present Illness This is a 60yF with history of progressive shortness of breath over the last few weeks. No change in sputum production. She does still smoke. Per EMS report , her initial spo2 was 82% on room air. she was placed on BiPAP. Initial abg was 7.29/78/43. Critical care medicine is consulted to evaluate and manage her hypoxia and hypercarbia. When I evaluated the patient, she is somnolent, she is arousable but appears to be not to want to participate in the history. She does not provide me with any additional information. Review of Systems ROS Limitations: Clinical Condition, Altered Mental Status Past Family Social History Allergies: Coded Allergies: Benadryl (Verified Allergy, Severe, Tachycardia, 06/06/16) "MAKES ME FEEL LIKE I TOOK AN AMPHETAMINE" Clindamycin (Verified Allergy, Intermediate, Rash, 06/06/16) Atrovent (Verified Allergy, Unknown, 06/06/16) Uncoded Allergies: STEROIDS (Allergy, Severe, Dizziness, 04/06/16) "STEROIDS MAKE MY BLOOD PRESSURE ELEVATED AND MAKES ME DIZZY" Past Medical History The patient is unable to provide a complete past medical history due to her clinical condition. Per chart review: Asthma Anxiety Depression COPD Fibromyalgia Gallstones Uterine fibroid tumors Herniated lumbar disc T11 compression fracture PTSD Prior history of suicidal ideation in 09/2015 Peptic ulcer disease Past Surgical History Complete past visual history is unobtainable due to the patient's clinical condition. Per chart review: Oral surgery Tonsillectomy Reported Medications Patient cannot provide a complete home medication list. Per chart review: Ceftin (Cefuroxime Axetil) 500 Mg Tab 500 Mg PO Q12HR Mucinex ER 12 HR (Guaifenesin) 600 Mg Adamaris 600 Mg PO BID Nebulizer 1 Mis Mis 1 Ea .ROUTE DIRECTED Albuterol Neb (Albuterol Sulfate) 2.5 Mg/3 Ml Neb 2.5 Mg NEB Q4HR NEB PRN Lisinopril 20 Mg Tab 20 Mg PO DAILY Ventolin Hfa 18 GM Inh (Albuterol Sulfate) 90 Mcg/Act Aer 2 Puff INH Q4H PRN Active Ordered Medications See MAR Family History Patient cannot provide a family history due to her clinical condition. His unlikely to be contributory to her acute illness. Social History Patient is unable to provide a social history due to her clinical condition. Per chart review: Still smokes 5 cigarettes a day Physical Exam Vital Signs Vital Signs Date Time Temp Pulse Resp B/P Pulse Ox O2 Delivery O2 Flow Rate FiO2 06/06/16 05:00 96 06/06/16 05:00 30 06/06/16 04:40 88 20 102/76 98 06/06/16 04:38 18 06/06/16 04:30 98.0 96 20 119/45 97 06/06/16 03:58 85 20 109/52 95 BiPAP 30 06/06/16 03:04 99.2 102 20 105/48 96 BiPAP 06/06/16 02:21 102 20 142/63 96 BiPAP 06/06/16 01:51 102 20 156/77 99 BiPAP 30 06/06/16 01:45 30 06/06/16 01:45 97 30 06/06/16 01:30 98 24 118/74 88 Nasal Cannula 2 06/06/16 01:23 93 24 161/66 92 Nasal Cannula 2 157/69 06/06/16 01:20 82 21 06/06/16 01:17 98.4 96 24 157/81 94 Nasal Cannula 2 06/06/16 01:13 96 Nasal Cannula 2 06/06/16 01:06 98 24 90 Nasal Cannula 2 06/06/16 01:02 102 20 143/68 92 Physical Exam GENERAL: Middle-aged female, lying in bed, somnolent but arousable HEENT:. atraumatic. pupils equal, round, reactive, conjugate. mucous membranes are dry. NECK: Trachea is midline. BiPAP in place. No JVD. CHEST: Equal chest rise. [place] tachypneic. Decreased breath sounds bilaterally. No expiratory wheezing. CARDIOVASCULAR: Normal rate, regular rhythm. No appreciable murmurs. ABDOMEN: Obese abdomen, soft, nontender, nondistended. No guarding. MUSCULOSKELETAL: 1+ peripheral edema. Distal pulses 2+. NEUROLOGICAL: RASS -2. Arousable, somnolent, briskly purposeful. She does not follow commands for me this morning, but I do not know if this is volitional, because she has followed commands for the nurses this morning. Laboratory Laboratory Tests Test 06/06/16 06/06/16 06/06/165/17 01:28 01:45 02:10 02:45 Blood Gas Puncture Site RT RADIAL Blood Gas Patient Temperature 98.6 Blood Gas HCO3 36 Blood Gas Base Excess 9.5 Blood Gas Oxygen Saturation 66 Arterial Blood pH 7.29 Arterial Blood Partial 78 Pressure CO2 Arterial Blood Partial 43 Pressure O2 Arterial Blood Oxygen Content 12.4 Arterial Blood 3.7 Carboxyhemoglobin Arterial Blood Methemoglobin 1.1 Blood Gas Hemoglobin 13.3 Oxygen Delivery Device ROOM AIR Blood Gas Inspired Oxygen 21 White Blood Count 7.4 Red Blood Count 4.64 Hemoglobin 13.7 Hematocrit 41.8 Mean Corpuscular Volume 89.9 Mean Corpuscular Hemoglobin 29.5 Mean Corpuscular Hemoglobin 32.8 Concent Red Cell Distribution Width 14.5 Platelet Count 169 Mean Platelet Volume 8.6 Neutrophils (%) (Auto) 68.1 Lymphocytes (%) (Auto) 14.6 Monocytes (%) (Auto) 8.7 Eosinophils (%) (Auto) 5.1 Basophils (%) (Auto) 3.5 Neutrophils # (Auto) 5.0 Lymphocytes # (Auto) 1.1 Monocytes # (Auto) 0.6 Eosinophils # (Auto) 0.4 Basophils # (Auto) 0.3 CBC Comment DIFF FINAL Differential Comment Sodium Level 144 Potassium Level 3.7 Chloride Level 102 Carbon Dioxide Level 36.6 Anion Gap 5 Blood Urea Nitrogen 8 Creatinine 0.57 Estimat Glomerular Filtration 108 Rate Random Glucose 139 Calcium Level 8.9 Troponin I LESS THAN 0.02 Ethyl Alcohol Level LESS THAN 3 Urine Opiates Screen NEG Urine Barbiturates Screen NEG Urine Amphetamines Screen NEG Urine Benzodiazepines Screen NEG Urine Cocaine Screen NEG Urine Cannabinoids Screen NEG Result Diagram: 06/06/16 0145 06/06/16 0210 Imaging Last Impressions Chest X-Ray 06/06/16 0000 Signed Impressions: Service Date/Time: Monday, June 06, 2016 01:12 - CONCLUSION: No acute disease. Yanick Zarate Jr., MD Assessment and Plan Assessment and Plan Assessment: This is a 60yF with hypoxic and hypercarbic respiratory failure likely secondary to COPD Exacerbation. We will keep her on BiPAP, steroids. She remains critically ill, and if she does not improve, we may be forced to move forward with intubation. Plan: 1. Hypoxic and Hypercarbic Respiratory Failure -- BiPAP -- wean fio2 for goal spo2 > 88% -- nebs q4h and q2h prn -- serial ABG -- NPO for now. if she starts to improve, will get nursing bedside swallow eval and slowly advance to clears. 2. COPD Exacerbation -- methylpred 60 iv q12h -- salmeterol inh -- Levaquin 3. Intravascular volume depletion -- NS @ 75cc/hr. SCDs, pepcid, lovenox for ppx. This patient remains critically ill with one or more organ systems which are or may become a threat to life. I have spent in excess of 36 minutes discontinuously in the care and management of this patient. This time is exclusive of procedures, and includes, but is not limited to, evaluation of the patient, review of the medical record, discussions with family, consultants, nursing staff, or respiratory therapy, and documentation in the medical record. Code Status Full Code Alcides Washburn MD Jun 06, 2016 06:35
[2016-06-06] MEDS: RESP: ALBUTEROL 2.5 MG/3 ML NEB (SCH) NEB ×5 (07:30→23:25)
[2016-06-06 07:42] LABS: MAGNESIUM 1.9 MG/DL (1.5-2.5)
[2016-06-06 08:00] LABS: CREATINE KINASE 25 U/L (26-192)
[2016-06-06] MEDS: CHLORHEXIDINE 0.12% (ORAL KIT) 15 ML CUP MT SCH ×2 (08:00→20:00)
[2016-06-06] MEDS: SODIUM CHLORIDE 0.9% FLUSH 10 ML FLUSH SCH ×2 (09:00→21:56)
[2016-06-06] MEDS: SALMETEROL XINAFOATE 50 MCG DISKUS INH SCH ×2 (09:00→21:00)
--- NOTE | 2016-06-06 09:10 | EKG ---
Date Performed: 06/06/2016 Time Performed: 01:12:02 PTAGE: 60 years EKG: Sinus rhythm . Possible septal infarct - age undetermined Abnormal ECG PREVIOUS TRACING : 05/08/2016 02.29 DOCTOR: Dewey Ramos Interpretating Date/Time 06/06/2016 09:09:05
--- NOTE | 2016-06-06 10:39 | HHI.HP ---
[facility] Primary [facility]ician No Primary Care Physician Admission Diagnosis Hypoxic/Hypercapneic Respiratory failure Diagnoses: Travel History International Travel<30 Days: No Contact w/Intl Traveler <30 Da: No Traveled to Known Affected Are: No History of Present Illness This is a 60-year-old female with severe COPD history of previous intubation, leaving AGAINST MEDICAL ADVICE who is known to me from previous hospital admission last week for COPD presented to the ER last night complaining of shortness of breath, cough which was productive. The patient states that at first when discharged from the hospital she felt fine. At that time we had tried to arrange her to have a nebulizer machine however Medicare would not cover another one as she had lost her previous one earlier this year in [place]. We had provided her with a albuterol rescue inhaler which she was using. The patient states that she unfortunately lost it. She also state that she was not provided with a prescription for Ceftin upon discharge from the hospital however this goes against a documentation. Regardless the patient states that about 3 days ago she started to get worsening cough which was nonproductive, and this has increased and she has developed shortness of breath. The shortness of breath became severe last night and so she presented to the ER. Alleviating factors included using her rescue inhaler whenever she had lost it. In the emergency department she was noted to have acute respiratory acidosis on her ABG and was placed on bipap and admitted to the ICU. The geophysics scientist requested she be admitted to the hospitalist with a consult to the geophysics scientist for respiratory failure management. She's been placed on BiPAP overnight and this morning at 6 AM her ABG showed essentially no change. Per the nurse at that time she was somewhat somnolent. At the time of my evaluation the patient is now alert and awake and requesting that the BiPAP removed. Review of Systems ROS Limitations: Poor Historian Constitutional: DENIES: Fever, Chills Eyes: DENIES: Diplopia, Eye pain Ears, nose, mouth, throat: DENIES: Throat pain, Odynophagia Respiratory: COMPLAINS OF: Cough, Sputum production, Shortness of breath Cardiovascular: COMPLAINS OF: Lower Extremity Edema, DENIES: Chest pain Gastrointestinal: DENIES: Abdominal pain, Vomiting Genitourinary: DENIES: Urgency, Dysuria Musculoskeletal: DENIES: Stiffness, Joint Swelling Integumentary: DENIES: Pruritus Hematologic/lymphatic: DENIES: Lymphadenopathy Neurologic: DENIES: Headache, Localized weakness Psychiatric: COMPLAINS OF: Anxiety, DENIES: Confusion Past Family Social History Past Medical History COPD Hypertension Chronic venous stasis pedal edema Asthma Anxiety/depression History of diverticulitis Fibromyalgia Uterine fibroids Lumbar disc herniation History of thoracic compression fracture PTSD History of migraine headaches History of peptic ulcer disease Reported Medications Allergies Coded Allergies Type Severity Reaction Last Updated Verified Benadryl Allergy Severe Tachycardia 06/06/16 Yes Clindamycin Allergy Intermediate Rash 06/06/16 Yes Atrovent Allergy Unknown 06/06/16 Yes Uncoded Allergies Type Severity Reaction Last Updated Verified STEROIDS Allergy Severe Dizziness 04/06/16 Active Scripts Medications Dose Route/Sig Days Date Category Ceftin (Cefuroxime Axetil) 500 Mg Tab 500 Mg PO Q12HR 05/31/16 Rx Mucinex ER 12 HR (Guaifenesin) 600 Mg Adamaris 600 Mg PO BID 05/31/16 Rx Nebulizer 1 Mis Mis 1 Ea .ROUTE DIRECTED 05/31/16 Rx Albuterol Neb (Albuterol Sulfate) 2.5 Mg/3 Ml Neb 2.5 Mg NEB Q4HR NEB PRN 05/31/16 Rx Ventolin Hfa 18 GM Inh (Albuterol Sulfate) 90 Mcg/Act Aer 2 Puff INH Q4H PRN 05/31/16 Rx Lisinopril 20 Mg Tab 20 Mg PO DAILY 05/06/16 Reported Ventolin Hfa 18 GM Inh (Albuterol Sulfate) 90 Mcg/Act Aer 2 Puff INH Q4H PRN 04/06/16 Reported Allergies: Coded Allergies: Benadryl (Verified Allergy, Severe, Tachycardia, 06/06/16) "MAKES ME FEEL LIKE I TOOK AN AMPHETAMINE" Clindamycin (Verified Allergy, Intermediate, Rash, 06/06/16) Atrovent (Verified Allergy, Unknown, 06/06/16) Uncoded Allergies: STEROIDS (Allergy, Severe, Dizziness, 04/06/16) "STEROIDS MAKE MY BLOOD PRESSURE ELEVATED AND MAKES ME DIZZY" Family History Reviewed and noncontributory. Social History The patient does continue to smoke cigarettes. Does have a history of alcoholism but none for about 5 years. Denies illicits. Physical Exam Vital Signs Vital Signs Date Time Temp Pulse Resp B/P Pulse Ox O2 Delivery O2 Flow Rate FiO2 06/06/16 07:36 94 30 06/06/16 06:00 82 16 125/58 95 06/06/16 05:00 96 06/06/16 05:00 30 06/06/16 04:40 88 20 102/76 98 06/06/16 04:38 18 06/06/16 04:30 98.0 96 20 119/45 97 06/06/16 03:58 85 20 109/52 95 BiPAP 30 06/06/16 03:04 99.2 102 20 105/48 96 BiPAP 06/06/16 02:21 102 20 142/63 96 BiPAP 06/06/16 01:51 102 20 156/77 99 BiPAP 30 06/06/16 01:45 30 06/06/16 01:45 97 30 06/06/16 01:30 98 24 118/74 88 Nasal Cannula 2 06/06/16 01:23 93 24 161/66 92 Nasal Cannula 2 157/69 06/06/16 01:20 82 21 06/06/16 01:17 98.4 96 24 157/81 94 Nasal Cannula 2 06/06/16 01:13 96 Nasal Cannula 2 06/06/16 01:06 98 24 90 Nasal Cannula 2 06/06/16 01:02 102 20 143/68 92 Physical Exam GENERAL: Well-nourished, well-developed patient. SKIN: Warm and dry. HEAD: Normocephalic. EYES: No scleral icterus. No injection or drainage. NECK: Supple, trachea midline. No JVD or lymphadenopathy. CARDIOVASCULAR: Regular rate and rhythm without murmurs, gallops, or rubs. RESPIRATORY: Breath sounds diminished anteriorly secondary to wearing BiPAP. No accessory muscle use tolerating BiPAP well. GASTROINTESTINAL: Abdomen soft, non-tender, nondistended. EXTREMITIES: Tender 2+ chronic edema lower extremities, with dull erythema. NEUROLOGICAL: Awake, alert, and oriented x 3. Non-focal. Laboratory Laboratory Tests Test 06/06/16 06/06/16 06/06/16 06/06/16 01:28 01:45 02:10 02:45 Blood Gas Puncture Site RT RADIAL Blood Gas Patient Temperature 98.6 Blood Gas HCO3 36 Blood Gas Base Excess 9.5 Blood Gas Oxygen Saturation 66 Arterial Blood pH 7.29 Arterial Blood Partial 78 Pressure CO2 Arterial Blood Partial 43 Pressure O2 Arterial Blood Oxygen Content 12.4 Arterial Blood 3.7 Carboxyhemoglobin Arterial Blood Methemoglobin 1.1 Blood Gas Hemoglobin 13.3 Oxygen Delivery Device ROOM AIR Blood Gas Inspired Oxygen 21 White Blood Count 7.4 Red Blood Count 4.64 Hemoglobin 13.7 Hematocrit 41.8 Mean Corpuscular Volume 89.9 Mean Corpuscular Hemoglobin 29.5 Mean Corpuscular Hemoglobin 32.8 Concent Red Cell Distribution Width 14.5 Platelet Count 169 Mean Platelet Volume 8.6 Neutrophils (%) (Auto) 68.1 Lymphocytes (%) (Auto) 14.6 Monocytes (%) (Auto) 8.7 Eosinophils (%) (Auto) 5.1 Basophils (%) (Auto) 3.5 Neutrophils # (Auto) 5.0 Lymphocytes # (Auto) 1.1 Monocytes # (Auto) 0.6 Eosinophils # (Auto) 0.4 Basophils # (Auto) 0.3 CBC Comment DIFF FINAL Differential Comment Sodium Level 144 Potassium Level 3.7 Chloride Level 102 Carbon Dioxide Level 36.6 Anion Gap 5 Blood Urea Nitrogen 8 Creatinine 0.57 Estimat Glomerular Filtration 108 Rate Random Glucose 139 Calcium Level 8.9 Troponin I LESS THAN 0.02 Ethyl Alcohol Level LESS THAN 3 Urine Opiates Screen NEG Urine Barbiturates Screen NEG Urine Amphetamines Screen NEG Urine Benzodiazepines Screen NEG Urine Cocaine Screen NEG Urine Cannabinoids Screen NEG Test 06/06/16 06/06/16 06:18 07:10 Blood Gas Puncture Site RT BRACHIAL Blood Gas Patient Temperature 37.0 Blood Gas HCO3 32 Blood Gas Base Excess 5.8 Blood Gas Oxygen Saturation 86 Arterial Blood pH 7.29 Arterial Blood Partial 68 Pressure CO2 Arterial Blood Partial 60 Pressure O2 Arterial Blood Oxygen Content 14.5 Arterial Blood 3.1 Carboxyhemoglobin Arterial Blood Methemoglobin 0.7 Blood Gas Hemoglobin 12.0 Oxygen Delivery Device BIPAP Blood Gas Ventilator Setting IPAP 12/EPAP 5 Blood Gas Inspired Oxygen 30 Phosphorus Level 4.0 Magnesium Level 1.9 Total Creatine Kinase 25 Troponin I LESS THAN 0.02 Result Diagram: 06/06/16 0145 06/06/16 0210 Imaging Last Impressions Chest X-Ray 06/06/16 0000 Signed Impressions: Service Date/Time: Monday, June 06, 2016 01:12 - CONCLUSION: No acute disease. Yanick Zarate Jr., MD Assessment and Plan Problem List: (1) COPD (chronic obstructive pulmonary disease) ICD Code: J44.9 Status: Acute (2) Acute respiratory failure with hypoxia and hypercapnia ICD Code: J96.01 Status: Acute (3) Venous stasis dermatitis of both lower extremities ICD Code: I87.2 Status: Acute (4) COPD exacerbation ICD Code: J44.1 Status: Acute (5) Peripheral edema ICD Code: R60.9 Status: Acute (6) Anxiety and depression ICD Code: F41.9 Status: Acute Assessment and Plan -Acute hypercapnic respiratory failure on BiPAP - management of BiPAP as per geophysics scientist. Repeat ABG is pending at noon. I discussed the patient with Dr. Zarate today. -COPD exacerbation - patient claims to have an allergy to steroids and adamantly declines them. Continue bronchodilators. Continue Levaquin IV. Chest x-ray revealed no acute disease and reviewed the images myself. -Anxiety/depression/Fibromyalgia/PTSD - not currently on medications for this. Consider psychiatry consultation especially given her history of leaving AGAINST MEDICAL ADVICE. -History of thoracic compression fracture/Lumbar disc herniation - pain control as needed. -History of peptic ulcer disease - continue Pepcid -Poor social situation. The patient states that she lives with IV drug abusers. Consult case management to see if we may assist the patient in finding a better living situation. -Hypertension. Currently normotensive. We'll resume lisinopril 20 mg when blood pressure increases. -Chronic venous stasis and edema of lower extremities - appeared totally right similar to her previous presentation. Add ANU mena, continue Levaquin. -DVT prophylaxis - SCDs. Kassie Servin MD Jun 06, 2016 10:39
[2016-06-06] MEDS: FAMOTIDINE 20 MG/2 ML VIAL IV PUSH SCH ×2 (11:06→21:00)
[2016-06-06] MEDS: ALBUTEROL SULFATE 90 MCG/ACT HFA 8 GM INHALER INH SCH (11:07)
[2016-06-06] MEDS: guaiFENesin E.R. 600 MG TAB PO SCH ×2 (13:31→21:55)
[2016-06-06] MEDS: MAGNESIUM SULFATE 1 GM PREMIX 100 ML IV SCH ×2 (13:33→14:30)
[2016-06-06 14:08] LABS: BLOOD GAS BASE EXCESS 3.6 mmol/L (-2-2); BLOOD GAS CARBOXYHEMOGLOBIN 2.7 % (0-4); BLOOD GAS HCO3 29 mmol/L (22-26); BLOOD GAS METHEMOGLOBIN 0.8 % (0-2); BLOOD GAS O2 HGB SATURATION 86 % (90-100); BLOOD GAS OXYGEN CONTENT 14.8 Vol % (12.0-20.0); BLOOD GAS PCO2 54 mmHg (38-42); BLOOD GAS PO2 56 mmHg (61-120); BLOOD GAS TOTAL HGB 12.3 G/DL (12.0-16.0)
[2016-06-06 14:09] LABS: CRITICAL VALUE YES; DRAW SITE LT RADIAL; FIO2 21 %; NUMBER OF ARTERIAL PUNCTURES 2; OXYGEN DEVICE ROOM AIR; STAT NO; ULNAR PULSE PRESENT
--- NOTE | 2016-06-06 21:54 | MB ---
cc: LEIA JANSEN DATE OF CONSULTATION 06/06/[address] Servin REASON FOR CONSULTATION Evaluate for COPD exacerbation. HISTORY OF THE PRESENT ILLNESS Ms. Swartz is a 60-year-old female with history of COPD, nicotine use, history of intubation and she signed out against medical advice. She was living in [facility] and she has moved to this area and still looking for a new physician. She says she has been having flu-like symptoms for the last two weeks. She has been in and out of the emergency room. Since she was not getting better she came to the emergency room. She was found to have respiratory acidosis, hypercapnic respiratory failure. Her blood gas showed pH 7.29, PCO2 78, pO2 43. She was put on BiPap. Repeat blood gas pH 7.35, PCO2 54, pO2 56 on room air. She refuses to use BiPap. Her CBC showed a WBC count of 7.4, hemoglobin 13.7, hematocrit 41.8, MCV 89, platelet count 169. Sodium 144, potassium 3.7, chloride 102, CO2 36, BUN 8, creatinine 0.57. IMAGING Chest x-ray shows no acute infiltrate. PAST MEDICAL HISTORY Her past medical history significant for: 1. History of COPD. 2. Bronchial asthma. 3. PTSD. 4. Nicotine use. 5. Fibromyalgia. 6. History of diverticulosis. 7. Chronic venous stasis. 8. Hypertension. MEDICATIONS She is currently takin. Albuterol inhaler. 2. Mucinex twice a day. 3. Famotidine 20 mg a day. 4. Serevent 50 mg twice a day. 5. Levaquin 750 mg a day. 6. Hydrocodone p.r.n. 7. Morphine p.r.n. 8. Lovenox 30 mg q.24-hour. ALLERGIES SHE IS ALLERGIC TO CLINDAMYCIN, BENADRYL, ATROVENT AND STEROIDS. SOCIAL HISTORY She has history of smoking which she has cut down. FAMILY HISTORY Noncontributory. REVIEW OF SYSTEMS Difficult to assess. The patient is non cooperative and barely answers questions. GENERAL: Physical examination shows a well built, well-nourished female not in acute distress. VITAL SIGNS: Blood pressure 137/63, heart rate 80, respirations 20, temperature 98.3, saturation 96% on room air. HEENT: Examination unremarkable. NECK: Supple. JVP not raised. CHEST: She has end-expiratory rhonchi. CARDIOVASCULAR: S1-S2 normal. ABDOMEN: Benign. EXTREMITIES: No edema. IMPRESSION 1. COPD exacerbation. 2. Hypercapnic respiratory insufficiency, has improved. 3. Hypertension. 4. nicotine use. 5. PTSD. PLAN She refuses to use BiPap. She is stable on room air. She will be transferred to a regular floor. Give her aerosol treatment with albuterol. She cannot take Atrovent or steroids. Continue antibiotic. Encourage her to quit smoking. We will evaluate for need for home oxygen therapy. Further treatment will depend on the course in the hospital. Thank you Dr. Servin for this consultation. MD JUVE Nascimento/MONIK /7:13 PM /9:33 PM
[2016-06-07] VITALS (7 sets, daily range): BP systolic 144–165; BP diastolic 70–78; PULSE 88–102; RESP 15–20; TEMP 96.5–97.2; O2SAT 85–97
[2016-06-07] MEDS: RESP: ALBUTEROL 2.5 MG/3 ML NEB (SCH) NEB ×7 (00:20→23:40)
[2016-06-07] MEDS: CHLORHEXIDINE GLUCONATE 2 % 1 PACK (2 CLOTHS) TOP SCH (01:53)
[2016-06-07] MEDS: LEVOFLOXACIN 750 MG PREMIX INJ 150 ML IV SCH (01:53)
[2016-06-07 05:25] LABS: BLOOD GAS BASE EXCESS 6.2 mmol/L (-2-2); BLOOD GAS CARBOXYHEMOGLOBIN 2.3 % (0-4); BLOOD GAS HCO3 33 mmol/L (22-26); BLOOD GAS METHEMOGLOBIN 1.1 % (0-2); BLOOD GAS O2 HGB SATURATION 95 % (90-100); BLOOD GAS PCO2 77 mmHG (38-42); BLOOD GAS PO2 102 mmHG (61-120); BLOOD GAS TOTAL HGB 11.8 G/DL (12.0-16.0); CRITICAL VALUE YES; DRAW SITE RT RADIAL; LITER FLOW 3 L/M; NUMBER OF ARTERIAL PUNCTURES 1; OXYGEN DEVICE NASAL CANNULA; STAT NO; TEMP CORR TO 98.6; ULNAR PULSE Y
[2016-06-07 07:42] LABS: AUTOMATED NEUTROPHIL # 3.8 TH/MM3 (1.8-7.7); BASOPHIL % 0.8 % (0.0-2.0); EOSINOPHIL # 0.2 TH/MM3 (0-0.4); EOSINOPHIL % 4.6 % (0.0-4.0); HEMATOCRIT 38.8 % (35.0-46.0); HEMO FLAGS DIFF FINAL; LYMPH % 13.3 % (9.0-44.0); LYMPHOCYTE # 0.7 TH/MM3 (1.0-4.8); MEAN CELL VOLUME 90.9 FL (80.0-100.0); MEAN CORPUSCULAR HEMOGLOBIN 28.8 PG (27.0-34.0); MEAN CORPUSCULAR HGB CONC 31.8 % (32.0-36.0); MONO % 9.6 % (0.0-8.0); NEUT % 71.7 % (16.0-70.0); PLATELET COUNT 142 TH/MM3 (150-450); RED BLOOD COUNT 4.27 MIL/MM3 (4.00-5.30); RED CELL DISTRIBUTION WIDTH 14.7 % (11.6-17.2); WHITE BLOOD COUNT 5.2 TH/MM3 (4.0-11.0)
[2016-06-07 07:55] LABS: CHLORIDE 105 MEQ/L (98-107); POTASSIUM 4.1 MEQ/L (3.5-5.1); SODIUM (NA) 144 MEQ/L (136-145)
[2016-06-07 07:58] LABS: ANION GAP 6 MEQ/L (5-15); BICARBONATE 33.1 MEQ/L (21.0-32.0); BLOOD UREA NITROGEN 11 MG/DL (7-18)
[2016-06-07] MEDS: CHLORHEXIDINE 0.12% (ORAL KIT) 15 ML CUP MT SCH ×2 (08:00→19:46)
[2016-06-07 08:03] LABS: ALT (GPT) 26 U/L (10-53); AST (GOT) 9 U/L (15-37); GLOMERULAR FILTRATION RATE 128 ML/MIN (>89); TOTAL BILIRUBIN ADULT 0.3 MG/DL (0.2-1.0)
[2016-06-07 08:04] LABS: ALKALINE PHOSPHATASE 56 U/L (45-117)
[2016-06-07] MEDS: FAMOTIDINE 20 MG/2 ML VIAL IV PUSH SCH ×2 (09:00→20:08)
[2016-06-07] MEDS: SODIUM CHLORIDE 0.9% FLUSH 10 ML FLUSH SCH ×2 (09:00→19:46)
[2016-06-07] MEDS ORDERED: PNEUMOCOCCAL POLYVALENT INJ 25 MCG/0.5 ML SYR IM ONE (10:00)
--- NOTE | 2016-06-07 10:01 | HHI.PR ---
Subjective Remarks Patient denies any chest pain. She reports that her shortness of breath has not improved. She blames her COPD on Floor wax, requests to be move to a room without shiny floors. She's been refusing medications. Refuses powdered medication. Refuses steroids. Refuses any medications until she gets antibiotic beginning with "Cef". She has been walking around room Objective Vital Signs Date Time Temp Pulse Resp B/P Pulse Ox O2 Delivery O2 Flow Rate FiO2 06/07/16 08:06 86 21 06/07/16 05:25 Nasal Cannula 2.00 06/07/16 04:20 85 21 06/07/16 00:00 96.5 101 20 144/75 97 06/06/16 23:26 93 Nasal Cannula 3.00 06/06/16 23:26 90 Nasal Cannula 3.00 06/06/16 20:00 98.2 108 18 139/74 97 06/06/16 20:00 86 Nasal Cannula 2.00 06/06/16 19:55 86 21 06/06/16 16:30 75 06/06/16 16:03 98.3 88 35 137/63 96 06/06/16 12:06 89 21 06/06/16 12:00 97.8 84 22 118/55 92 06/06/16 11:45 88 06/06/16 10:00 96 28 108/50 92 I/O 06/06/16 06/06/16 06/06/16 06/07/16 06/07/16 06/07/16 07:00 15:00 23:00 07:00 15:00 23:00 Intake Total 200 ml 1685 ml 640 ml 420 ml Output Total 250 ml 300 ml 1000 ml Balance -50 ml 1385 ml -360 ml 420 ml Intake Oral 850 ml 640 ml 420 ml IV Total 200 ml 835 ml Output Urine Total 250 ml 300 ml 1000 ml # Voids 3 4 # Bowel Movements 0 1 Result Diagram: 06/07/16 0735 06/07/16 0735 Imaging Last Impressions Chest X-Ray 06/06/16 0000 Signed Impressions: Service Date/Time: Monday, June 06, 2016 01:12 - CONCLUSION: No acute disease. Yanick Zarate Jr., MD Objective Remarks GENERAL: Patient walking around room. Appears comfortable. Alert and oriented 3. SKIN: Warm and dry. HEAD: Normocephalic. EYES: No scleral icterus. No injection or drainage. NECK: Supple, trachea midline. No JVD. CARDIOVASCULAR: Regular rate and rhythm without murmurs, gallops, or rubs. RESPIRATORY: Breath sounds equal bilaterally. No accessory muscle use. Poor air movement. GASTROINTESTINAL: Abdomen soft, non-tender, nondistended. MUSCULOSKELETAL: No cyanosis. Patient does have +2 edema bilateral lower extremities. Erythema, no broken skin. BACK: Nontender without obvious deformity. No CVA tenderness. A/P Assessment and Plan //Acute hypercapnic respiratory failure -Chest x-ray with no acute disease. -Initially improved on BiPAP, however refusing medications -Continues IV Levaquin. -6 Worsened ABG this morning likely due to refusing medications. We'll try to switch to Symbicort. Discussed with nursing and pulmonology following. Appreciate assistance. //Suspected bipolar disorder. Or other psychiatric disorder. //Anxiety/depression/Fibromyalgia/PTSD - -Although she is alert and oriented 3, and can paty me she is here for asthma, she does not understand the treatment -Is impairing her medical treatment, in the setting of COPD. -Consult psychiatry. //History of thoracic compression fracture/Lumbar disc herniation -hold pain control due to hypercapnia. //History of peptic ulcer disease - continue Pepcid //Poor social situation. The patient states that she lives with IV drug abusers. Consult case management to see if we may assist the patient in finding a better living situation. //Hypertension. Currently normotensive. We'll resume lisinopril 20 mg when blood pressure increases. //Chronic venous stasis and edema of lower extremities - Bilaterally. similar to her previous presentation. contTED hose. Patient refusing. //DVT prophylaxis - SCDs. Discharge Planning Waiting further improvement Kolby Mathews MD Jun 07, 2016 10:01
[2016-06-07] MEDS: guaiFENesin E.R. 600 MG TAB PO SCH ×2 (10:34→20:32)
[2016-06-07] MEDS ORDERED: BUDESONIDE-FORMOTEROL 160/4.5 MCG INHALER INH SCH (11:00)
[2016-06-07] MEDS: RESP: BUDESONIDE 0.25 MG/2 ML NEB NEB SCH ×4 (11:30→23:40)
[2016-06-07] MEDS: ALBUTEROL SULFATE 90 MCG/ACT HFA 8 GM INHALER INH SCH ×2 (12:00→20:00)
--- NOTE | 2016-06-07 19:30 | HHI.PR ---
Subjective Remarks 60 YOWF with COPD exac, Hypercapnoic RF Weaned to NC Alert, awake Ambulates refuses to take steroids Non compliant Objective Vital Signs Vital Signs Date Time Temp Pulse Resp B/P Pulse Ox O2 Delivery O2 Flow Rate FiO2 06/07/16 16:00 97.0 88 16 160/70 85 06/07/16 14:08 Nasal Cannula 2.00 06/07/16 12:00 96.9 102 15 165/78 90 06/07/16 08:06 86 21 06/07/16 05:25 Nasal Cannula 2.00 06/07/16 04:20 85 21 06/07/16 00:00 96.5 101 20 144/75 97 06/06/16 23:26 93 Nasal Cannula 3.00 06/06/16 23:26 90 Nasal Cannula 3.00 06/06/16 20:00 98.2 108 18 139/74 97 06/06/16 20:00 86 Nasal Cannula 2.00 06/06/16 19:55 86 21 I/O 06/06/16 06/06/16 06/06/16 06/07/16 06/07/16 06/07/16 07:00 15:00 23:00 07:00 15:00 23:00 Intake Total 200 ml 1685 ml 640 ml 420 ml 1000 ml Output Total 250 ml 300 ml 1000 ml Balance -50 ml 1385 ml -360 ml 420 ml 1000 ml Intake Oral 850 ml 640 ml 420 ml 1000 ml IV Total 200 ml 835 ml Output Urine Total 250 ml 300 ml 1000 ml # Voids 3 4 4 # Bowel Movements 0 1 Result Diagram: 06/07/16 0735 06/07/16 0735 Objective Remarks GENERAL:WBWN WF,NAD SKIN: Warm and dry. HEAD: Normocephalic. EYES: No scleral icterus. No injection or drainage. NECK: Supple, trachea midline. No JVD or lymphadenopathy. CARDIOVASCULAR: Regular rate and rhythm without murmurs, gallops, or rubs. RESPIRATORY: Breath sounds equal bilaterally. No accessory muscle use. End Exp rhonchi GASTROINTESTINAL: Abdomen soft, non-tender, nondistended. MUSCULOSKELETAL: No cyanosis, or edema. BACK: Nontender without obvious deformity. No CVA tenderness. A/P Assessment and Plan Hypercapnoic RF Improved COPD exac bronchitis Anxirty PTSD HTN PLAN: Aerosol nebs Pulmicort BID Cont Abx wean 02 to keep sat 88-92% Clinically much improved. Diego Farris MD Jun 07, 2016 19:30
[2016-06-08] MEDS: RESP: ALBUTEROL 2.5 MG/3 ML NEB (SCH) NEB ×6 (03:02→23:35)
[2016-06-08] MEDS: RESP: BUDESONIDE 0.25 MG/2 ML NEB NEB SCH ×6 (03:02→23:35)
[2016-06-08] MEDS: ENOXAPARIN SODIUM 30 MG/0.3 ML SYRINGE SQ SCH (03:15)
[2016-06-08] MEDS: LEVOFLOXACIN 750 MG PREMIX INJ 150 ML IV SCH (03:57)
[2016-06-08] MEDS: CHLORHEXIDINE GLUCONATE 2 % 1 PACK (2 CLOTHS) TOP SCH (03:58)
[2016-06-08] MEDS: ALBUTEROL SULFATE 90 MCG/ACT HFA 8 GM INHALER INH SCH ×7 (03:58→22:56)
[2016-06-08 07:56] VITALS: O2SAT 85
[2016-06-08 08:00] VITALS: BP 146/79; PULSE 88; RESP 20; TEMP 96.6; O2SAT 96
[2016-06-08] MEDS: CHLORHEXIDINE 0.12% (ORAL KIT) 15 ML CUP MT SCH ×2 (08:00→20:00)
[2016-06-08] MEDS: SODIUM CHLORIDE 0.9% FLUSH 10 ML FLUSH SCH ×2 (08:02→21:00)
[2016-06-08] MEDS: FAMOTIDINE 20 MG/2 ML VIAL IV PUSH SCH (08:02)
[2016-06-08] MEDS: guaiFENesin E.R. 600 MG TAB PO SCH ×2 (09:00→22:55)
[2016-06-08 12:00] VITALS: BP 150/79; PULSE 93; RESP 20; TEMP 97.8; O2SAT 94
[2016-06-08] MEDS: clonazePAM 0.5 MG TAB PO SCH ×2 (12:00→21:00)
--- NOTE | 2016-06-08 12:14 | PD.CONS ---
Provisional Diagnosis Admission Date Jun 06, 2016 at 03:31 [place] I. Bipolar disorder, panic disorder, [place] II. Strong cluster B traits identify, R/o borderline personality disorder, R/O narcissistic personality disorder [place] III. COPD, HTN [place] IV. Lack of social and family support [place] V. 55 History of Present Illness Service Psychiatry Consult Requested By Primary Care Physician No Primary Care Physician HPI The patient is a 60-year-old woman, domicile with a friend in [place], divorce, unemployed, supported by [facility], with psychiatric history of bipolar disorder, depression, panic disorder, 5 previous psychiatric hospitalization, last hospitalization was in September 2015 in [facility], 2 previous suicide attempts by overdosing, no active psychiatric care, no psychotropics at this time, she has medical history hypertension, COPD history of previous intubation, she has been hospitalized in [place] several times in 2017 with similar presentations, she has left the hospital [facility], who was hospitalized this time due to COPD exacerbation, Acute hypercapnic respiratory failure, Initially improved on BiPAP, however refusing medications. Consulted to psychiatry due to Suspected bipolar disorder, as per primary care team, Although she is alert and oriented 3, they do not feel that the patient understands and appreciates her medical situation. On psychiatric evaluation today patient is found in her bed sitting down, at the beginning expressed unhappiness of seeing a psychiatrist, she was irritable, uncooperative, but redirectable. She says that she does not need a psychiatrist, she is here for respiratory issues. She says that she had psychiatric issues in the past, but she has been stable now for about a year. Patient states that she has been diagnosed with PTSD, panic disorder, bipolar disorder, but she does not think that those were the right diagnosis for her. At this moment she is not taking any psychotropic, but in the past she has been taking Seroquel and clonazepam. The clonazepam was helping her with anxiety, but she doesn't have a prescriber at this moment. Patient reports okay mood, she denies anhedonia, she denies perceptual disturbances, she denies hopelessness, she denies helplessness, she denies suicidal and homicidal ideation, she denies visual and auditory hallucinations. During the evaluation patient is repeatedly verbally hostile, manipulative and demanding. She says that she has been mistreated by staff and doctors in this building. She says that her problem is that she does not live in a good environment, "where I live people uses drug, and they did not have a good hygiene which is pervasive for my respiratory problems". Patient describes herself as an impulsive person, with anger issues, who likes the things her way and no others. Patient says that she has problems following comments of others, "especially from nurses and doctors that think they are smarter than me". As per nurse in charge, patient has been extremely difficult to manage in the floor, she has been agitated, verbally hostile at times, highly demanding and intrusive. She denies the use of illicit drugs and alcohol. She reports the use of nicotine cigarettes, between 7 and 10 cigarettes, Review of Systems Constitutional: DENIES: Diaphoretic episodes, Fatigue, Fever, Weight gain, Weight loss, Chills, Dizziness, Change in appetite, Night Sweats Endocrine: DENIES: Abnorml menstrual pattern, Heat/cold intolerance, Polydipsia , Polyuria, Polyphagia Eyes: DENIES: Blurred vision, Diplopia, Eye inflammation, Eye pain, Vision loss , Photosensitivity, Double Vision Ears, nose, mouth, throat: DENIES: Tinnitus, Hearing loss, Vertigo, Nasal discharge, Oral lesions, Throat pain, Hoarseness, Ear Pain, Running Nose, Epistaxis, Sinus Pain, Toothache, Odynophagia Respiratory: DENIES: Apneas, Cough, Snoring, Wheezing, Hemoptysis, Sputum production, Shortness of breath Cardiovascular: DENIES: Chest pain, Palpitations, Syncope, Dyspnea on Exertion , PND, Lower Extremity Edema, Orthopnea, Claudication Gastrointestinal: DENIES: Abdominal pain, Black stools, Bloody stools, Constipation, Diarrhea, Nausea, Vomiting, Difficulty Swallowing, Anorexia Musculoskeletal: DENIES: Joint pain, Muscle aches, Stiffness, Joint Swelling, Back pain, Neck pain Integumentary: DENIES: Abnormal pigmentation, Pruritus, Rash, Nail changes, Breast masses, Breast skin changes, Nipple discharge Hematologic/lymphatic: DENIES: Bruising, Lymphadenopathy Immunologic/allergic: DENIES: Eczema, Urticaria Neurologic: DENIES: Abnormal gait, Headache, Localized weakness, Paresthesias, Seizures, Speech Problems, Tremor, Poor Balance Psychiatric: DENIES: Anxiety, Confusion, Mood changes, Depression, Hallucinations, Agitation, Suicidal Ideation, Homicidal Ideation, Delusions Past Family Social History Coded Allergies: Benadryl (Verified Allergy, Severe, Tachycardia, 06/06/16) "MAKES ME FEEL LIKE I TOOK AN AMPHETAMINE" Clindamycin (Verified Allergy, Intermediate, Rash, 06/06/16) Atrovent (Verified Allergy, Unknown, 06/06/16) Uncoded Allergies: STEROIDS (Allergy, Severe, Dizziness, 04/06/16) "STEROIDS MAKE MY BLOOD PRESSURE ELEVATED AND MAKES ME DIZZY" Active Scripts Cefuroxime (Ceftin)500 Mg [id number] Mg PO Q12HR #10 TAB Prov:Kassie Servin MD 05/31/16 Guaifenesin ER 12 HR (Mucinex ER 12 HR)600 Mg [id number] Mg PO BID #14 TAB Ref 0 Prov:Kassie Servin MD 05/31/16 Nebulizer 1 Mis Mis #1 EA .ROUTE DIRECTED Ref 0 Prov:Kassie Servin MD 05/31/16 Albuterol Neb 2.5 Mg/3 Ml Neb2.5 Mg NEB Q4HR NEB PRN (SHORTNESS OF BREATH) #60 NEBULE Ref 0 Prov:Kassie Servin MD 05/31/16 Albuterol 18 GM Inh (Ventolin Hfa 18 GM Inh)90 Mcg/Act Aer2 Puff INH Q4H PRN ( SHORTNESS OF BREATH) #1 INHALER Ref 0 Prov:Kassie Servin MD 05/31/16 Reported Medications Lisinopril 20 Mg Tab20 Mg PO DAILY #30 TAB Ref 0 05/06/16 Albuterol 18 GM Inh (Ventolin Hfa 18 GM Inh)90 Mcg/Act Aer2 Puff INH Q4H PRN ( SHORTNESS OF BREATH) #1 INHALER Ref 0 04/06/16 Current Medications Medications (Trade) Dose Ordered Sig/[place]aquille Route Start Time Stop Time Status Last Admin (NS Flush) 2 ml UNSCH PRN .XX 06/06/16 03:15 (NS Flush) 2 ml BID .XX 06/06/16 09:00 06/06/16 21:56 (Peridex 0.12% Liq) 15 ml BID@08,20 MT 06/06/16 08:00 (Pepcid Inj) 20 mg Q12HR IV PUSH 06/06/16 09:00 06/06/16 11:06 (Lovenox Inj) 30 mg Q24H SQ 06/06/16 03:15 Miscellaneous Information 1 Q361D XX 06/06/16 03:15 (Chlorhexidine 2% Cloth) 3 pack Taper DAILY@04 TOP 06/06/16 04:00 06/02/17 03:59 06/06/16 04:00 Chlorhexidine Gluconate 3 pack 3 pack UNSCH PRN TOP 06/06/16 03:15 (Levaquin 750 Mg Premix Inj) 150 ml @ 100 mls/hr Q24H IV 06/06/16 04:00 06/06/16 03:24 (Proair Hfa Inh) 2 puff Q4HR INH 06/07/16 09:00 06/08/16 11:18 (Mucinex Er) 1,200 mg BID PO 06/06/16 12:30 06/08/16 09:00 Family History Her sister is bipolar Social History Patient was born and raised in [place], she has been living with a friend in [place] for several years, she is , she has a 45 years old son, she is unemployed, on SSI, she has a college degree Patient's Strengths (min. 2) Verbal communication Physical Exam No EPS, no tremors, no agitation, no stiffness, no tremors present in physical exam Vital Signs Vital Signs Date Time Temp Pulse Resp B/P Pulse Ox O2 Delivery O2 Flow Rate FiO2 06/08/16 08:00 96.6 88 20 146/79 96 06/08/16 07:56 21 06/07/16 20:30 Room Air 06/07/16 14:08 2.00 I/O 06/07/16 06/07/16 06/08/16 08:00 16:00 00:00 Intake Total 420 ml 1800 ml Balance 420 ml 1800 ml Mental Status Examination Appearance woman, disheveled, fair hygiene, [facility], older than her stated age, irritable, superficially cooperative Speech: Unremarkable Orientation: x3 Memory: Unremarkable Thought Process: Logical, Goal Directed Thought Content: Unremarkable Attention and Concentration: Good Suicidal Ideation: No Previous Suicide Attempts: No Homicidal Ideation: No Insight: Fair Judgment: Impulsive Affect: Irritable Mood: Angry Motor Activity: Normal gait Assessment & Plan Problem List: (1) Unspecified personality disorder Assessment & Plan: On psychiatric evaluation today patient is irritable, verbally hostile, oppositional and resistant to provide information at the beginning, but she could be redirected. Patient denies symptomatology of depression, she does report frustration and anger related with mistreatment in the hospital by nurses and doctors. She reports anxiety related with underlying medical condition and respiratory symptoms. She denies suicidal and homicidal ideation, she denies visual and auditory hallucinations. Patient is fully oriented 3, no attention deficit, no gross cognitive impairment is observed. No litzy, no delusions, no paranoia, no motoric agitation, restlessness, ideas of reference, flight of ideas, are observed during this evaluation. Patient is reported as difficult to handle in the floor by nurse, also reported as resistant to following medical recommendations as per primary team. Patient has left hospital AMA several times. Patient seems to be aware of the consequences of her actions, and seems to have a fair understanding of her underlying medical conditions and consequences of not following medical recommendations, but at the same time her judgment seems to have an impaired judgment. There are several elements of the psychiatric history of the patient , of patient's behavior, way to interact with people, does suggest the patient has an underlying personality problems, specifically a cluster B one. Highly impulse behavior, anger management problem, self identity issues, frequent interpersonal conflicts, frequent splitting with staff and nurses, sense of empowering, poor judgment decisions and even microcytotic episodes may this patient highly suspicious of borderline personality disorder, formally know as ambulatory schizophrenia or pseudoneurotic schizophrenia. She does not meet criteria for psychiatric admission at this moment, usually for this patient psychiatric admission are not beneficial. Patient refuses to take psychotropics. But, she agrees to take a low dose of clonazepam 0.5 mg twice a day, which could be helpful with agitation and anxiety. Extensive psycho education, motivation and support were provided. Patient does have full decision making capacity to refuse medication and to leave AMA at this moment. If you have any question don't hesitate in contacting me, . Consult appreciated. ICD Code: F60.9 (2) Chronic bipolar disorder ICD Code: F31.9 Assessment & Plan Estimated LOS: Woody Crespo MD Jun 08, 2016 12:13
--- NOTE | 2016-06-08 13:21 | HHI.PR ---
Subjective Remarks Patient seen today around 11 AM. Says she is feeling a little better. Shortness of breath little better. Denies any chest pain. Walking around room . Discussed with nursing. Patient is accepting her Pulmicort and albuterol nebs. Again, refuses Levaquin, any other steroid but Pulmicort. Objective Vital Signs Date Time Temp Pulse Resp B/P Pulse Ox O2 Delivery O2 Flow Rate FiO2 06/08/16 12:00 97.8 93 20 150/79 94 06/08/16 11:44 2.00 06/08/16 08:00 96.6 88 20 146/79 96 06/08/16 07:56 85 21 06/07/16 20:30 91 Room Air 06/07/16 20:00 97.2 90 18 146/75 91 06/07/16 19:53 90 21 06/07/16 16:00 97.0 88 16 160/70 85 06/07/16 14:08 Nasal Cannula 2.00 I/O 06/07/16 06/07/16 06/07/16 06/08/16 06/08/16 06/08/16 07:00 15:00 23:00 07:00 15:00 23:00 Intake Total 420 ml 1800 ml Balance 420 ml 1800 ml Intake Oral 420 ml 1800 ml # Voids 4 7 # Bowel Movements 1 0 Result Diagram: 06/07/16 0735 06/07/16 0735 Objective Remarks GENERAL: Patient walking around room. Appears comfortable. Alert and oriented 3. SKIN: Warm and dry. HEAD: Normocephalic. EYES: No scleral icterus. No injection or drainage. NECK: Supple, trachea midline. No JVD. CARDIOVASCULAR: Regular rate and rhythm without murmurs, gallops, or rubs. RESPIRATORY: Breath sounds equal bilaterally. No accessory muscle use. Movement improved. Wheezing on expiration. GASTROINTESTINAL: Abdomen soft, non-tender, nondistended. MUSCULOSKELETAL: No cyanosis. Patient does have +2 edema bilateral lower extremities. Erythema, no broken skin. BACK: Nontender without obvious deformity. No CVA tenderness. A/P Assessment and Plan //Acute hypercapnic respiratory failure -Poor response to treatment initially due to noncompliance. -Chest x-ray with no acute disease. -Initially improved on BiPAP, however refusing medications -Continues IV Levaquin. -06/07 Worsened ABG this morning likely due to refusing medications. We'll try to switch to Symbicort. Discussed with nursing and pulmonology following. Appreciate assistance. -06/08. Shortness of breath improved. Air movement improved now that patient is compliant with Pulmicort, albuterol nebs. Add Ceftin, as patient refusing Augmentin. No lobar pneumonia. //Suspected bipolar disorder. Or other psychiatric disorder. //Anxiety/depression/Fibromyalgia/PTSD - -Although she is alert and oriented 3, and can paty me she is here for asthma, she does not understand the treatment -Is impairing her medical treatment, in the setting of COPD. -Appreciate psychiatry assistance. They report Patient is competent to make medical decisions. //History of thoracic compression fracture/Lumbar disc herniation -hold pain control due to hypercapnia. //History of peptic ulcer disease - continue Pepcid //Poor social situation. The patient states that she lives with IV drug abusers. Consult case management to see if we may assist the patient in finding a better living situation. //Hypertension. Currently normotensive. We'll resume lisinopril 20 mg when blood pressure increases. //Chronic venous stasis and edema of lower extremities - Bilaterally. similar to her previous presentation. contTED hose. Patient refusing. //DVT prophylaxis - SCDs. Discharge Planning Likely discharge to SNF tomorrow. Appreciate case management assistance. Kolby Mathews MD Jun 08, 2016 13:20
[2016-06-08 16:00] VITALS: BP 158/89; PULSE 83; RESP 20; TEMP 96.7; O2SAT 90
--- NOTE | 2016-06-08 19:11 | HHI.PR ---
Subjective Remarks 60 YOWF with COPD exac, Hypercapnoic RF Weaned to NC Alert, awake Ambulates refuses to take steroids Ambulates in hallway Feels better Objective Vital Signs Vital Signs Date Time Temp Pulse Resp B/P Pulse Ox O2 Delivery O2 Flow Rate FiO2 06/08/16 16:00 96.7 83 20 158/89 90 06/08/16 12:00 97.8 93 20 150/79 94 06/08/16 11:44 2.00 06/08/16 08:00 96.6 88 20 146/79 96 06/08/16 07:56 85 21 06/07/16 20:30 91 Room Air 06/07/16 20:00 97.2 90 18 146/75 91 06/07/16 19:53 90 21 I/O 06/07/16 06/07/16 06/07/16 06/08/16 06/08/16 06/08/16 07:00 15:00 23:00 07:00 15:00 23:00 Intake Total 420 ml 1800 ml 1200 ml Balance 420 ml 1800 ml 1200 ml Intake Oral 420 ml 1800 ml 1200 ml # Voids 4 7 6 # Bowel Movements 1 0 0 Result Diagram: 06/07/16 0735 06/07/16 0735 Objective Remarks GENERAL:WBWN WF,NAD SKIN: Warm and dry. HEAD: Normocephalic. EYES: No scleral icterus. No injection or drainage. NECK: Supple, trachea midline. No JVD or lymphadenopathy. CARDIOVASCULAR: Regular rate and rhythm without murmurs, gallops, or rubs. RESPIRATORY: Breath sounds equal bilaterally. No accessory muscle use. End Exp rhonchi GASTROINTESTINAL: Abdomen soft, non-tender, nondistended. MUSCULOSKELETAL: No cyanosis, or edema. BACK: Nontender without obvious deformity. No CVA tenderness. A/P Assessment and Plan Hypercapnoic RF Improved COPD exac bronchitis Anxirty PTSD HTN PLAN: Aerosol nebs Pulmicort BID Cont Abx wean 02 to keep sat 88-92% Clinically much improved. DC plans underway. Diego Farris MD Jun 08, 2016 19:11
[2016-06-08 20:00] VITALS: BP 144/66; PULSE 98; RESP 20; TEMP 98; O2SAT 90
[2016-06-08] MEDS: CEFUROXIME AXETIL 250 MG TAB PO SCH (22:55)
[2016-06-08] MEDS: FAMOTIDINE 20 MG TAB PO SCH (23:00)
[2016-06-09] VITALS: BP 141/70; PULSE 90; RESP 18; TEMP 97.2; O2SAT 97
[2016-06-09] MEDS: ENOXAPARIN SODIUM 30 MG/0.3 ML SYRINGE SQ SCH (03:15)
[2016-06-09 04:00] VITALS: BP 131/75; PULSE 89; RESP 16; TEMP 96.8; O2SAT 92
[2016-06-09] MEDS: ALBUTEROL SULFATE 90 MCG/ACT HFA 8 GM INHALER INH SCH ×3 (04:00→12:00)
[2016-06-09] MEDS: CHLORHEXIDINE GLUCONATE 2 % 1 PACK (2 CLOTHS) TOP SCH (04:00)
[2016-06-09] MEDS: RESP: BUDESONIDE 0.25 MG/2 ML NEB NEB SCH ×2 (04:58→08:20)
[2016-06-09] MEDS: RESP: ALBUTEROL 2.5 MG/3 ML NEB (SCH) NEB ×2 (04:58→08:00)
[2016-06-09 08:00] VITALS: BP 151/83; PULSE 82; RESP 21; TEMP 96.8; O2SAT 90
[2016-06-09] MEDS: CHLORHEXIDINE 0.12% (ORAL KIT) 15 ML CUP MT SCH (08:00)
[2016-06-09 08:23] VITALS: O2SAT 91
[2016-06-09] MEDS: CEFUROXIME AXETIL 250 MG TAB PO SCH (08:39)
[2016-06-09] MEDS: FAMOTIDINE 20 MG TAB PO SCH (08:39)
[2016-06-09] MEDS: clonazePAM 0.5 MG TAB PO SCH (08:40)
[2016-06-09] MEDS: guaiFENesin E.R. 600 MG TAB PO SCH (08:40)
[2016-06-09] MEDS: SODIUM CHLORIDE 0.9% FLUSH 10 ML FLUSH SCH (08:42)
[2016-06-09] MEDS ORDERED: MUCI600T PO (09:39)
[2016-06-09] MEDS ORDERED: CLON.5 PO (09:39)
[2016-06-09] MEDS ORDERED: BUDE.25I NEB (09:39)
[2016-06-09] MEDS ORDERED: CEFT500T3 PO (09:39)
[2016-06-09] MEDS ORDERED: VENTAER INH (09:39)
[2016-06-09] MEDS ORDERED: FAMO20TA2 PO (09:39)
--- NOTE | 2016-06-10 07:42 | HHI.PR ---
Subjective Remarks Date of service 06/09/16. Patient seen the morning of 06/09/16. Patient says she is feeling well. Denies any chest pain. Reports shortness of breath is improved. Objective Vital Signs Date Time Temp Pulse Resp B/P Pulse Ox O2 Delivery O2 Flow Rate FiO2 06/09/16 08:23 91 21 06/09/16 08:00 96.8 82 21 151/83 90 Result Diagram: 06/07/16 0735 06/07/16 0735 Objective Remarks GENERAL: Patient walking around room as before. Appears comfortable. Alert and oriented 3. SKIN: Warm and dry. HEAD: Normocephalic. EYES: No scleral icterus. No injection or drainage. NECK: Supple, trachea midline. No JVD. CARDIOVASCULAR: Regular rate and rhythm without murmurs, gallops, or rubs. RESPIRATORY: Breath sounds equal bilaterally. No accessory muscle use. Movement improved. Wheezing on expiration. GASTROINTESTINAL: Abdomen soft, non-tender, nondistended. MUSCULOSKELETAL: No cyanosis. Patient does have +2 edema bilateral lower extremities. Erythema unchanged, no broken skin. BACK: Nontender without obvious deformity. No CVA tenderness. A/P Assessment and Plan //Acute hypercapnic respiratory failure -Poor response to treatment initially due to noncompliance. -Chest x-ray with no acute disease. -Initially improved on BiPAP, however refusing medications -Continues IV Levaquin. -06/07 Worsened ABG this morning likely due to refusing medications. We'll try to switch to Symbicort. Discussed with nursing and pulmonology following. Appreciate assistance. -06/08. Shortness of breath improved. Air movement improved now that patient is compliant with Pulmicort, albuterol nebs. Add Ceftin, as patient refusing Augmentin. No lobar pneumonia. -06/09. Shortness of breath improved with improved compliance. Discharge to SNF. //Suspected bipolar personality disorder. Or other psychiatric disorder. //Anxiety/depression/Fibromyalgia/PTSD - -Although she is alert and oriented 3, and can paty me she is here for asthma, she does not understand the treatment -Is impairing her medical treatment, in the setting of COPD. -Appreciate psychiatry assistance. They report Patient is competent to make medical decisions. -06/09. Improved compliance with medications. Appreciate psychiatry's assistance. //History of thoracic compression fracture/Lumbar disc herniation -hold pain control due to hypercapnia. //History of peptic ulcer disease - continue Pepcid //Poor social situation. The patient states that she lives with IV drug abusers. Consult case management to see if we may assist the patient in finding a better living situation. //Hypertension. Currently normotensive. We'll resume lisinopril 20 mg when blood pressure increases. //Chronic venous stasis and edema of lower extremities - Bilaterally. similar to her previous presentation. contTED hose. Patient refusing. -recommend elevation. Could benefit from Jonathan wraps, however patient refusing. //DVT prophylaxis - SCDs. Discharge Planning Discharge to SNF. Kolby Mathews MD Jun 10, 2016 07:42
--- NOTE | 2016-06-10 07:45 | HHI.DS ---
Discharge Summary Admission Date Jun 06, 2016 at 03:31 Discharge Date: Jun 09, 2016 Admitting Diagnosis Hypoxic/Hypercapneic Respiratory failure (1) COPD (chronic obstructive pulmonary disease) ICD Code: J44.9 (2) Acute respiratory failure with hypoxia and hypercapnia ICD Code: J96.01 (3) Venous stasis dermatitis of both lower extremities ICD Code: I87.2 (4) COPD exacerbation ICD Code: J44.1 (5) Peripheral edema ICD Code: R60.9 (6) Anxiety and depression ICD Code: F41.9 Procedures No invasive procedures Brief History - From Admission This is a 60-year-old female with severe COPD history of previous intubation, leaving AGAINST MEDICAL ADVICE who is known to me from previous hospital admission last week for COPD presented to the ER last night complaining of shortness of breath, cough which was productive. The patient states that at first when discharged from the hospital she felt fine. At that time we had tried to arrange her to have a nebulizer machine however Medicare would not cover another one as she had lost her previous one earlier this year in [place]. We had provided her with a albuterol rescue inhaler which she was using. The patient states that she unfortunately lost it. She also state that she was not provided with a prescription for Ceftin upon discharge from the hospital however this goes against a documentation. Regardless the patient states that about 3 days ago she started to get worsening cough which was nonproductive, and this has increased and she has developed shortness of breath. The shortness of breath became severe last night and so she presented to the ER. Alleviating factors included using her rescue inhaler whenever she had lost it. In the emergency department she was noted to have acute respiratory acidosis on her ABG and was placed on bipap and admitted to the ICU. The coal or ore controller requested she be admitted to the hospitalist with a consult to the coal or ore controller for respiratory failure management. She's been placed on BiPAP overnight and this morning at 6 AM her ABG showed essentially no change. Per the nurse at that time she was somewhat somnolent. At the time of my evaluation the patient is now alert and awake and requesting that the BiPAP removed. CBC/BMP: 06/07/16 0735 06/07/16 0735 Imaging Last Impressions Chest X-Ray 06/06/16 0000 Signed Impressions: Service Date/Time: Monday, June 06, 2016 01:12 - CONCLUSION: No acute disease. Yanick Zarate Jr., MD Hospital Course Patient had hypercapnia with PCO2 of 77. Chest x-ray with no acute findings. Patient initially noncompliant with medical treatment, however she did except Pulmicort nebs scheduled along with albuterol nebs. Psychiatry was consulted, and patient likely has bipolar personality disorder. Shortness of breath improved with improved compliance area patient saturating 88% on room air, walking around without difficulty. She will need a follow-up with pulmonology as outpatient. She will be discharged on Ceftin for bronchitis. She does have bilateral lower extremity venous stasis cellulitis, for which Jonathan wraps recommended and refused. For problem-based summary for most recent progress note, please see below. //Acute hypercapnic respiratory failure -Poor response to treatment initially due to noncompliance. -Chest x-ray with no acute disease. -Initially improved on BiPAP, however refusing medications -She refused Levaquin. -06/07 Worsened ABG this morning likely due to refusing medications. We'll try to switch to Symbicort. Discussed with nursing and pulmonology following. Appreciate assistance. -06/08. Shortness of breath improved. Air movement improved now that patient is compliant with Pulmicort, albuterol nebs. Add Ceftin, as patient refusing Augmentin. No lobar pneumonia. -06/09. Shortness of breath improved with improved compliance. Discharge to SNF. She will continue Ceftin to complete treatment course. //Suspected bipolar personality disorder. Or other psychiatric disorder. //Anxiety/depression/Fibromyalgia/PTSD - -Although she is alert and oriented 3, and can paty me she is here for asthma, she does not understand the treatment -Is impairing her medical treatment, in the setting of COPD. -Appreciate psychiatry assistance. They report Patient is competent to make medical decisions. -06/09. Improved compliance with medications. Appreciate psychiatry's assistance. //History of thoracic compression fracture/Lumbar disc herniation -hold pain control due to hypercapnia. //History of peptic ulcer disease - continue Pepcid //Poor social situation. The patient states that she lives with IV drug abusers. Consult case management to see if we may assist the patient in finding a better living situation. //Hypertension. Currently normotensive. We'll resume lisinopril 20 mg when blood pressure increases. //Chronic venous stasis and edema of lower extremities - Bilaterally. similar to her previous presentation. contTED hose. Patient refusing. -recommend elevation. Could benefit from Jonathan wraps, however patient refusing. //DVT prophylaxis - SCDs. Discharge Planning Discharge to SNF. Pt Condition on Discharge: Good Discharge Disposition: Discharge to SNF Discharge Time: > 30 minutes Discharge Instructions DIET: Follow Instructions for: As Tolerated, No Restrictions Activities you can perform: Regular-No Restrictions Follow up Referrals: Pulmonology - 1 Week with Diego Farris MD [facility]/ with [facility] New Medications: Albuterol 18 GM Inh (Ventolin Hfa 18 GM Inh) 90 Mcg/Act Aer 2 PUFF INH Q4HR copd Days 30 INHALER Budesonide Neb (Pulmicort Respules) 0.25 Mg/2 Ml Neb 0.25 MG NEB Q4HR NEB copd Days 30 BOX Clonazepam (Klonopin) 0.5 Mg Tab 0.5 MG PO Q12HR Anxiety and/or Insomnia #10 TAB Famotidine (Famotidine) 20 Mg Tab 20 MG PO BID Reflux Days 30 TAB Guaifenesin ER 12 HR (Mucinex ER 12 HR) 600 Mg Adamaris 1200 MG PO BID Cough Days 30 TAB Continued Medications: Albuterol 18 GM Inh (Ventolin Hfa 18 GM Inh) 90 Mcg/Act Aer 2 PUFF INH Q4H PRN SHORTNESS OF BREATH #1 Ref 0 INHALER Albuterol Neb (Albuterol Neb) 2.5 Mg/3 Ml Neb 2.5 MG NEB Q4HR NEB PRN SHORTNESS OF BREATH #60 Ref 0 NEBULE Cefuroxime (Ceftin) 500 Mg Tab 500 MG PO Q12HR Infection #10 TAB (This prescription has been renewed) Nebulizer (Nebulizer) 1 Mis Mis 1 EA .ROUTE DIRECTED Breathing Treatment #1 Ref 0 EA Discontinued Medications: Albuterol 18 GM Inh (Ventolin Hfa 18 GM Inh) 90 Mcg/Act Aer 2 PUFF INH Q4H PRN SHORTNESS OF BREATH #1 Ref 0 INHALER Guaifenesin ER 12 HR (Mucinex ER 12 HR) 600 Mg Adamaris 600 MG PO BID Chest Congestion/Cough #14 Ref 0 TAB Lisinopril (Lisinopril) 20 Mg Tab 20 MG PO DAILY #30 Ref 0 TAB Kolby Mathews MD Jun 10, 2016 07:45
== END 2016-06-09 14:28 | DRG 189 ==
LOC: PHED 00:51 → PHEDA 03:31 → PHICU 04:46 → PH3B 19:43
PROVIDERS: ADMIT Internal Medicine; ATTEND Internal Medicine
PROC: 5A09357 Assistance with Respiratory Ventilation, Less than 24 Consecutive Hours, Continuous Positive Airway Pressure (ICD-10-PCS; principal; 2016-06-06)
PROC: 0T9B70Z Drainage of Bladder with Drainage Device, Via Natural or Artificial Opening (ICD-10-PCS; 2016-06-06)
DX: J96.02 Acute respiratory failure with hypercapnia (principal); E87.2 Acidosis; L03.115 Cellulitis of right lower limb; J44.1 Chronic obstructive pulmonary disease with (acute) exacerbation; E86.9 Volume depletion, unspecified; L03.116 Cellulitis of left lower limb; M48.54XA Collapsed vertebra, not elsewhere classified, thoracic region, initial encounter for fracture; J96.01 Acute respiratory failure with hypoxia; F17.210 Nicotine dependence, cigarettes, uncomplicated; F43.10 Post-traumatic stress disorder, unspecified; I10 Essential (primary) hypertension; I87.2 Venous insufficiency (chronic) (peripheral); J45.909 Unspecified asthma, uncomplicated; M79.7 Fibromyalgia; Z87.11 Personal history of peptic ulcer disease; Z91.19 Patient's noncompliance with other medical treatment and regimen; I87.8 Other specified disorders of veins; F60.9 Personality disorder, unspecified; M51.26 Other intervertebral disc displacement, lumbar region; F41.8 Other specified anxiety disorders
CPT/HCPCS: 36600; 51702; 71010; 80048; 80053; 80307; 82550; 82805; 83735; 84100; 84484; 85025; 87641; 93005; 94002; 94620; 94640; 94664; J1650; J1956; J3475; J7030; J7613; J7626

== ENCOUNTER 2016-06-12 01:55 | Emergency (ER) | payer MEDICARE, OTHER ==
[~2016-06-12] VITALS: Ht 180.3 cm; Wt 95.0 kg
[~2016-06-12 01:55] MED LIST changes: +BUDE.25I NEB; +CLON.5 PO; +FAMO20TA2 PO; -LISI-515 PO
[2016-06-12 01:59] VITALS: BP 141/75; PULSE 77; RESP 18; TEMP 98; O2SAT 93
[2016-06-12] MEDS: RESP: ALBUTEROL 2.5 MG/3 ML NEB (SCH) INH ×2 (02:16→02:17)
--- NOTE | 2016-06-12 02:26 | PD ---
HPI Chief Complaint: Respiratory Symptoms Time Seen by Provider: 01:58 Travel History International Travel<30 days: No Contact w/Intl Traveler<30days: No Traveled to known affect area: No History of Present Illness HPI Patient is a 60-year-old female with history of COPD, a long history of noncompliance, presents to emergency room for an albuterol treatment. Patient reports that she was recently admitted to the hospital for hypoxic/hypercapnic respiratory failure, she was discharged to a SNF and patient reports that she walked out of the rehabilitation center today. Patient reports that she began to have increased wheezing around 4-5PM today, patient reports that she requested albuterol treatment which she did not get, patient reports that she became angry and walked out of the [facility]. Patient reports that she would like to have an albuterol treatment at this time and request scripts for the antibiotics that she is supposed to be taking. Reports "I don't know what I am supposed to be taking for my URI." PFSH Past Medical History Asthma: Yes Anxiety: Yes Depression: Yes Cardiovascular Problems: Yes COPD: Yes Diminished Hearing: No Diverticulitis: Yes Endocrine: No Fibromyalgia: Yes Gastrointestinal Disorders: Yes (GALLSTONES) Genitourinary: Yes (UTERINE FIBROID TUMORS) Herniated Disk: Yes (LUMBAR) Immune Disorder: Yes Musculoskeletal: Yes (T11 COMPRESSION FX: DX IN NOV, 2015) Neurologic: Yes Psychiatric: Yes (PTSD, SUICIDAL IDEATION: LAST EPISODE: SEPTEMBER 2015) Reproductive: Yes Respiratory: Yes Migraines: Yes Pneumonia: Yes Ulcer: Yes (PUD) Menopausal: Yes : 1 Para: 1 Ovarian Cysts: Yes Past Surgical History Oral Surgery: Yes Tonsillectomy: Yes Other Surgery: Yes Social History Alcohol Use: No Tobacco Use: No (5 cigs a day) Substance Use: No Allergies-Medications (Allergen,Severity, Reaction): Coded Allergies: Benadryl (Verified Allergy, Severe, Tachycardia, 06/12/16) "MAKES ME FEEL LIKE I TOOK AN AMPHETAMINE" Clindamycin (Verified Allergy, Intermediate, Rash, 06/12/16) Atrovent (Verified Allergy, Unknown, 06/12/16) Uncoded Allergies: STEROIDS (Allergy, Severe, Dizziness, 04/06/16) "STEROIDS MAKE MY BLOOD PRESSURE ELEVATED AND MAKES ME DIZZY" Reported Meds & Prescriptions Reported Meds & Active Scripts Active Ceftin (Cefuroxime Axetil) 500 Mg Tab 500 Mg PO BID 2 Days Ventolin Hfa 18 GM Inh (Albuterol Sulfate) 90 Mcg/Act Aer 1 Puff INH Q4H PRN Mucinex ER 12 HR (Guaifenesin) 600 Mg Adamaris 1,200 Mg PO BID 30 Days Famotidine 20 Mg Tab 20 Mg PO BID 30 Days Klonopin (Clonazepam) 0.5 Mg Tab 0.5 Mg PO Q12HR Pulmicort Respules (Budesonide) 0.25 Mg/2 Ml Neb 0.25 Mg NEB Q4HR NEB 30 Days Ceftin (Cefuroxime Axetil) 500 Mg Tab 500 Mg PO Q12HR Nebulizer 1 Mis Mis 1 Ea .ROUTE DIRECTED Albuterol Neb (Albuterol Sulfate) 2.5 Mg/3 Ml Neb 2.5 Mg NEB Q4HR NEB PRN Reported Ventolin Hfa 18 GM Inh (Albuterol Sulfate) 90 Mcg/Act Aer 2 Puff INH Q4H PRN Review of Systems General / Constitutional: No: Fever Eyes: No: Visual changes HENT: No: Headaches Cardiovascular: No: Chest Pain or Discomfort Respiratory: Positive: Shortness of Breath, Wheezing Gastrointestinal: No: Abdominal Pain Genitourinary: No: Dysuria Musculoskeletal: No: Pain Skin: No Rash Neurologic: No: Weakness Psychiatric: No: Depression Endocrine: No: Polydipsia Hematologic/Lymphatic: No: Easy Bruising Physical Exam Narrative GENERAL: nad, nontoxic SKIN: Focused skin assessment warm/dry. HEAD: Atraumatic. Normocephalic. EYES: Pupils equal and round.No injection or drainage. ENT: No nasal bleeding or discharge. Mucous membranes pink and moist. NECK: Trachea midline. No JVD. CARDIOVASCULAR: Regular rate and rhythm. No murmur appreciated. RESPIRATORY: No accessory muscle use. Patient with scattered wheezing on exam GASTROINTESTINAL: Abdomen soft, non-tender, nondistended. Hepatic and splenic margins not palpable. MUSCULOSKELETAL: No obvious deformities. No clubbing. No cyanosis. No edema. NEUROLOGICAL: Awake and alert. No obvious cranial nerve deficits. Motor grossly within normal limits. Normal speech. PSYCHIATRIC: Flat affect Data Data Last Documented VS Vital Signs Date Time Temp Pulse Resp B/P Pulse Ox O2 Delivery O2 Flow Rate FiO2 06/12/16 02:20 93 Room Air 06/12/16 01:59 98.0 77 18 141/75 Orders Albuterol Neb (Albuterol Neb) (06/12/16 02:15) Prednisone (Deltasone) (06/12/16 02:45) Cefuroxime (Ceftin) (06/12/16 02:45) MDM Medical Decision Making Medical Screen Exam Complete: Yes Emergency Medical Condition: Yes Interpretation(s) Vital Signs Date Time Temp Pulse Resp B/P Pulse Ox O2 Delivery O2 Flow Rate FiO2 06/12/16 02:20 93 Room Air 06/12/16 01:59 98.0 77 18 141/75 93 Differential Diagnosis COPD exacerbation Narrative Course 60-year-old female who presents emergency room with complaints of wheezing, patient reports that she was at SNF today and they refused to give her a nebulizer treatment, patient presents to ER requesting a nebulizer treatment. Patient is wheezing on exam, neb treatment ordered. Her pulse ox on room air is 93% which is baseline for patient as she refuses to use oxygen at home patient requesting her antibiotics, patient currently is on ceftin 500mg q 12 hours until 06/14/16 Patient refusing steroids, reports that she is feeling better after she received her nebulizer treatments. Patient was using further care at this time , will discharge patient with a prescription for albuterol treatments as well as for Ceftin 500 mg twice a day until June 14, 2016. Patient was given option to return to SNF - patient refuses to return to SNF. Reports "I do not like their cleaning product there and they get me all congested." "I do not like my roommate and I am not going back to the SNF." Patient understands signs and symptoms of when to return to emergency room Diagnosis Primary Impression: COPD exacerbation Patient Instructions: General Instructions Additional Instructions: Please follow-up with your airline operations agent as soon as possible Please follow up with your primary care doctor as soon as possible Return to emergency room as needed Med/Other Pt SpecificInfo: Prescription(s) given Scripts Cefuroxime (Ceftin)500 Mg [id number] Mg PO BID 2 Days Ref 0 Prov:Jessi Garcia DO 06/12/16 Albuterol 18 GM Inh (Ventolin Hfa 18 GM Inh)90 Mcg/Act Aer1 Puff INH Q4H PRN ( SHORTNESS OF BREATH) #1 INHALER Ref 0 Prov:Jessi Garcia DO 06/12/16 Disposition: 01 DISCHARGE HOME Condition: Stable Jessi Garcia DO Jun 12, 2016 02:26
[2016-06-12] MEDS ORDERED: VENTAER INH (02:42)
[2016-06-12] MEDS ORDERED: CEFT500T3 PO (02:42)
[2016-06-12] MEDS ORDERED: CEFUROXIME AXETIL 500 MG TAB PO ONE (02:45)
[2016-06-12] MEDS ORDERED: predniSONE 20 MG TAB PO ONE (02:45)
[2016-06-12 02:46] VITALS: O2SAT 91
== END 2016-06-12 03:03 | disposition home or self-care (01) ==
LOC: PHED 01:55
DX: J44.1 Chronic obstructive pulmonary disease with (acute) exacerbation (principal); Z87.09 Personal history of other diseases of the respiratory system; Z86.59 Personal history of other mental and behavioral disorders; Z86.79 Personal history of other diseases of the circulatory system; Z87.19 Personal history of other diseases of the digestive system; Z87.39 Personal history of other diseases of the musculoskeletal system and connective tissue; Z87.42 Personal history of other diseases of the female genital tract; Z86.2 Personal history of diseases of the blood and blood-forming organs and certain disorders involving the immune mechanism; Z86.69 Personal history of other diseases of the nervous system and sense organs
CPT/HCPCS: 94640; 94664; 99283; J7613